=== PATIENT | male | born 1970 | race Caucasian/White ===

== ENCOUNTER 2017-11-18 14:43 | Emergency (ER) | payer MEDICAID, SELFPAY ==
[2017-11-18 14:44] VITALS: BP 192/126; PULSE 89; RESP 14; TEMP 36.4; O2SAT 98; BMI 34.9
--- NOTE | 2017-11-18 15:13 | CT_ITS ---
STUDY: CT ABDOMEN AND PELVIS WITH CONTRAST REASON FOR EXAM: Male, 47 years old. Sudden onset of left lower quadrant pain. RADIATION DOSAGE (If Supplied By Facility): CTDIvol = ( 18.58 ) mGy, DLP = ( 1425.72 ) mGycm TECHNIQUE: Transaxial images were obtained from the dome of the diaphragm to the symphysis pubis without oral contrast. 100mL ml of Isovue 300 contrast was administered. Sagittal and coronal images were reconstructed. Individualized dose optimization techniques were used for this CT. COMPARISON: Comparison is made with prior examination dated September 26, 2016. FINDINGS: The visualized lung bases are unremarkable. The visualized portions of the heart are within normal limits. There is decreased attenuation of the liver consistent with mild steatosis. The gallbladder is contracted. Normal spleen. Normal pancreas. Normal bilateral adrenal glands. Normal right kidney. Mild degree of left hydronephrosis and left hydroureter. There is evidence of a 6.5 mm calculus at left ureterovesical junction. Stable 1.7 cm cyst in the lower pole of the left kidney. There is a small hiatal hernia. Normal small intestine. Normal colon. The appendix is visualized and appears normal. Normal abdominal aorta. Normal inferior vena cava. Normal retroperitoneum. Normal urinary bladder. There is a left-sided inguinal hernia containing adipose tissue. Normal osseous structures. CT/Abdomen/Pelvis W IV Cont ONLY IMPRESSION: 6.5 mm calculus at the left ureter vesicle junction. Fatty infiltration of the liver. Electronically Signed: Geoff Rangel MD at 15:57 EDT Tel [phone], Service support ,
--- NOTE | 2017-11-18 15:18 | ED.DCSUM_ITS ---
- ER Visit Summary Date of Service: 11/18/17 Chief Complaint: Abdominal pain History of Present Illness: The patient is a 47 M past medical history of hypertension for which he states he is not taking his medications. States that this morning around 8 or 9 AM he started having left lower quadrant abdominal pain. Denies any prior history of the same. Denies any trauma. Denies any fever, nausea, vomiting, diarrhea or constipation. Denies any dysuria or hematuria. No history of kidney stones. Denies any prior abdominal surgery. Nothing particularly makes the pain better or worse. He denies any back pain or other symptoms. Physical Examination: Middle-aged male no acute distress. Vital signs are stable blood pressure is elevated at 192/126. HEENT exam unremarkable. Neck nontender lungs clear to auscultation bilaterally. Heart regular rate and rhythm no murmur. Abdomen is soft and only mildly tender in the left lower quadrant. Nondistended. Normal bowel sounds. No pulsatile mass. No hernias or masses. No signs of obstruction. External exam unremarkable. No obvious hernias. He is moving all 4 extremities. He is neurovascularly intact. Neurologically is awake and alert with no focal motor deficits. Test Results: CBC shows a white count of 8. H&H of 15 and 43. Electrolytes unremarkable. Creatinine of 1.1. Gap is 6. Urinalysis is pending. CT of the abdomen and pelvis with IV contrast showed a 6.5 mm stone at the left UVJ. Fatty liver. Reviewed by me and read by the radiologist. Emergency Department Course and Treatment: Patient treated with IV Toradol. Labs and CT being obtained. Repeat exam at 1605 patient is doing well. Pain is well controlled with the IV Toradol. He and I discussed all his test results and is comfortable being discharged to home. Treatment Plan: p.o. [place] and Toradol at home for pain. Flomax to help pass the stone. Return if feeling worse, intractable vomiting or fever. Follow-up with Dr. Gonzalez of urology as needed. Disposition: Discharge Impression: Acute left lower quadrant abdominal pain secondary to 6.5 mm distal left UVJ ureteral stone This note was generated with [employer] software. It may contain incorrect words, spelling, and punctuation that were not noted in review of the chart prior to signing ED Disposition - Plan for ED Patient: Chief Complaint: Abd Pain Referrals: Pérez Montoya MD [Primary Care Provider] -
[2017-11-18 15:20] LABS: Absolute Lymphocyte Count 1.73 X10^3/ul (0.83-4.51); Absolute Neutrophil Count 5.7 X10^3/uL (2.0-7.7); Basophil# 0.04 X10^3/uL; Basophil% 0.5 % (0-1); Eosinophil# 0.18 X10^3/uL; Eosinophils% 2.1 % (0-5); Hematocrit 43.2 % (40-54); Lymphocyte # 1.73 X10^3/ul (4.0); Lymphocyte % 20.6 % (19-41); Mean Corp Hgb Conc 34.7 g/gl (32-36); Mean Corpuscular Hgb 29.5 pg (27.0-32.0); Mean Corpuscular Volume 84.9 fL (80-94); Mean Platelet Vol. 9.5 fl (6.2-12.0); Monocyte# 0.71 X10^3/uL; Monocyte% 8.4 % (0-10); Neutrophil % 67.8 % (47-70); Platelet Count 279 K/mm3 (150-450); RBC Distribution Width CV 12.7 % (11.6-14.6); RBC Distribution Width SD 38.8 fl (35.1-43.9); Red Blood Count 5.09 M/mm3 (4.6-6.2); White Blood Count 8.4 K/mm3 (4.4-11.0)
[2017-11-18 15:22] LABS: POSITIVE COUNT NO; POSITIVE DIFFERENTIAL NO; POSITIVE MORPHOLOGY NO
[2017-11-18 15:28] LABS: Anion Gap 6 (5-15); BUN 24 mg/dL (7-18); BUN/Creat Ratio 20.2 RATIO (10-20); Chloride 108 mmol/L (98-107); Creatinine, Serum 1.19 mg/dL (0.70-1.30); EST Glomerular Filtration Rate 70 mL/min (>60); Est Glom Filt Rate - Afr Amer 84 mL/min (>60); Estimated Creatinine Clearance 86.73 ml/min; Glucose 137 mg/dL (74-106); Potassium 4.1 mmol/L (3.5-5.1); Sodium Level 140 mmol/L (136-145)
[2017-11-18] MEDS: Ketorolac 30 MG/ML Syringe IV (15:28)
[2017-11-18 15:52] LABS: Bacteria 0 SEEN /hpf (None Seen); Mucous, Urine 0 SEEN /hpf (<or=2+); Red Blood Cells-Urine 0 SEEN /hpf (0-5); Squamous Epithelial Cells - UA 0 SEEN /hpf (0-5); White Blood Cells 0 SEEN /hpf (0-5)
--- NOTE | 2017-11-18 16:11 | ED.DEP ---
ED Disposition - Plan for ED Patient: Disposition: Home or Assisted Living Chief Complaint: Abd Pain Instructions: ED Stone Renal W Colic Prescriptions: Hydrocodone/Acetaminophen [[place] 5-325 Tablet] 1 - 2 ea PO 4X/DAY PRN PRN 3 Days #12 tab PRN Reason: Pain Tamsulosin HCl [Flomax] 0.4 mg PO DAILY #3 cap Ketorolac [Toradol] 10 mg PO Q6H #7 tab Referrals: Pérez Montoya MD [Primary Care Provider] - As Needed Henry Gonzalez MD [STAFF PHYSICIAN] - As Needed Additional Instructions: Toradol which is an anti-inflammatory nonnarcotic medication and [place] which is a narcotic pain medication for pain. Plenty of fluids and rest. Strain your urine for the passage of the stone. Return if intractable pain, intractable vomiting or fever.
--- NOTE | 2017-11-18 16:14 | DCINST.ED_ITS ---
ED Disposition - Plan for ED Patient: Disposition: Home or Assisted Living Chief Complaint: Abd Pain Instructions: ED Stone Renal W Colic Prescriptions: Hydrocodone/Acetaminophen [[place] 5-325 Tablet] 1 - 2 ea PO 4X/DAY PRN PRN 3 Days #12 tab PRN Reason: Pain Tamsulosin HCl [Flomax] 0.4 mg PO DAILY #3 cap Ketorolac [Toradol] 10 mg PO Q6H #7 tab Referrals: Pérez Montoya MD [Primary Care Provider] - As Needed Henry Gonzalez MD [STAFF PHYSICIAN] - As Needed Additional Instructions: Toradol which is an anti-inflammatory nonnarcotic medication and [place] which is a narcotic pain medication for pain. Plenty of fluids and rest. Strain your urine for the passage of the stone. Return if intractable pain, intractable vomiting or fever.
[2017-11-18 16:17] VITALS: BP 161/108; PULSE 77; RESP 18; O2SAT 97
[2017-11-18 16:21] LABS: Color, Urine Yellow (Yellow); Glucose, Dipstick Normal (Normal); Ketone-Dipstick Negative (Negative); Leukocyte Esterase-Dipstick Negative /ul (Negative); Nitrite-Dipstick Negative (Negative); Occult Blood-Urine 25 /ul (Negative); Protein-Dipstick 100 mg/dl (Negative); Specific Gravity, Urine 1.015 (1.002-1.030); Urine Bilirubin Dipstick Negative (Negative); Urine Clarity Clear (Clear); Urine Urobilinogen Normal (Normal)
== END 2017-11-18 16:21 | disposition home or self-care (01) ==
PROVIDERS: Emergency Provider Emergency Medicine; Family Provider Family Medicine; PCP Family Medicine
DX: N20.1 Calculus of ureter (principal); R10.32 Left lower quadrant pain; I10 Essential (primary) hypertension; Z79.899 Other long term (current) drug therapy
CPT/HCPCS: 74177; 80048; 81001; 85025; 96374; 99282; Q9967

== ENCOUNTER → 2020-03-22 | Outpatient (CLI) | payer MEDICAID, SELFPAY | END | disposition home or self-care (01) | LOC: MFPLAB 13:39 → LABSPEC 13:41 | PROVIDERS: PCP Family Medicine; Visit Provider Family Medicine | DX: U07.1 COVID-19 (principal); R09.89 Other specified symptoms and signs involving the circulatory and respiratory systems | CPT/HCPCS: 87635; U0003 ==

== ENCOUNTER → 2020-04-27 11:31 | Outpatient (CLI) | payer MEDICAID, SELFPAY ==
[2020-04-27 15:15] LABS: Absolute Lymphocyte Count 1.47 X10^3/uL (0.83-4.51); Absolute Neutrophil Count 8.8 X10^3/uL (2.0-7.7); Basophil# 0.08 X10^3/uL; Basophil% 0.7 % (0-1); Eosinophil# 0.12 X10^3/uL; Eosinophils% 1.1 % (0-5); Hematocrit 41.1 % (40-54); Lymphocyte # 1.47 X10^3/ul (4.0); Lymphocyte % 13.1 % (19-41); Mean Corp Hgb Conc 34.1 g/dL (32-36); Mean Corpuscular Hgb 30.6 pg (27.0-32.0); Mean Corpuscular Volume 89.7 fL (80-94); Mean Platelet Vol. 9.4 fl (6.2-12.0); Monocyte# 0.64 X10^3/uL; Monocyte% 5.7 % (0-10); NRBC Flagged by Analyzer 0 % (0-5); Neutrophil # 8.84 X10^3/uL (2.7-7.7); Neutrophil % 78.7 % (47-70); Platelet Count 292 K/mm3 (150-450); RBC Distribution Width CV 13.2 % (11.6-14.6); RBC Distribution Width SD 41.9 fl (35.1-43.9); Red Blood Count 4.58 M/mm3 (4.6-6.2); White Blood Count 11.2 K/mm3 (4.4-11.0)
[2020-04-27 15:39] LABS: ALB/GLOB Ratio 0.9 RATIO (0.9-2.4); AST(SGOT) 18 U/L (15-37); Alanine Aminotransfer ALT/SGPT 27 U/L (16-61); Albumin, Serum 3.6 g/dL (3.2-5.0); Alkaline Phosphatase 106 U/L (45-117); Anion Gap 7 (5-15); BUN 27 mg/dL (7-18); BUN/Creat Ratio 18.2 RATIO (10-20); Calcium,Total 9.1 mg/dL (8.5-10.1); Chloride 106 mmol/L (98-107); Creatinine, Serum 1.48 mg/dL (0.70-1.30); EST Glomerular Filtration Rate 54 mL/min (>60); Est Glom Filt Rate - Afr Amer 65 mL/min (>60); Globulin 3.9 g/dL (2.2-4.2); Glucose 73 mg/dL (74-106); Potassium 4.2 mmol/L (3.5-5.1); Protein, Total 7.5 g/dL (6.4-8.2); Sodium Level 136 mmol/L (136-145)
== END ==
PROVIDERS: PCP Family Medicine; Referring Provider Family Medicine; Visit Provider Family Medicine
DX: I10 Essential (primary) hypertension (principal)
CPT/HCPCS: 36415; 80053; 85025

== ENCOUNTER → 2020-05-25 08:00 | Outpatient (CLI) | payer MEDICAID, SELFPAY ==
[2020-05-17 07:08] VITALS: BMI 36.3
[2020-05-25 10:43] LABS: Albumin, Serum 3.6 g/dL (3.2-5.0); BUN 23 mg/dL (7-18); BUN/Creat Ratio 16.2 RATIO (10-20); Calcium,Total 9.1 mg/dL (8.5-10.1); Chloride 109 mmol/L (98-107); Creatinine, Serum 1.42 mg/dL (0.70-1.30); EST Glomerular Filtration Rate 56 mL/min (>60); Est Glom Filt Rate - Afr Amer 68 mL/min (>60); Glucose 99 mg/dL (74-106); Phosphorus 2.5 mg/dL (2.5-4.9); Potassium 4.3 mmol/L (3.5-5.1); Sodium Level 138 mmol/L (136-145)
--- NOTE | 2020-05-25 14:36 | PFTCOMP ---
COMPLETE PULMONARY FUNCTION TEST INTERPRETATION Brief HPI: Patient is a 49 year old male, currently under the care of myself, who presents to [facility] for complete pulmonary function tests secondary to diagnosis of chronic cough. Respiratory therapist reports good effort and reproducible results. Interpretation: Forced expiration spirometry shows no large airways obstructive ventilatory defect with an FEV1 of 85% predicted. There is no significant bronchodilator response by strict ATS criteria. Spirograms are of good quality and plateau normally. The respiratory flow volume loop shows a normal pattern. Lung volumes by body plethysmography show a normal total lung capacity at 7.54 L, 100% predicted. All other lung volumes are within normal limits. Diffusion capacity by carbon monoxide is normal at 116% predicted. The airway resistance is normal. No previous pulmonary function tests were available for review. Impression: Normal pulmonary function testing. Could consider a bronchoprovocation study if asthma is suspected.
[2020-06-02 20:45] LABS: Aldosterone, Serum 7.3 ng/dL (0.0-30.0); Renin, Plasma 1.097 ng/mL/hr (0.167-5.380)
== END ==
PROVIDERS: PCP Family Medicine; Referring Provider Internal Medicine Critical Care Medicine; Visit Provider Internal Medicine Critical Care Medicine
DX: R05 Cough (principal); R10.9 Unspecified abdominal pain
CPT/HCPCS: 36415; 80069; 82088; 84244; 94060; 94726; 94729

== ENCOUNTER → 2020-06-07 19:50 | Outpatient (CLI) | payer MEDICAID, SELFPAY ==
[2020-05-17 07:08] VITALS: BMI 36.3
== END ==
PROVIDERS: PCP Family Medicine; Referring Provider Internal Medicine Critical Care Medicine; Visit Provider Internal Medicine Critical Care Medicine
DX: G47.10 Hypersomnia, unspecified (principal)
CPT/HCPCS: 95811

== ENCOUNTER → 2020-06-08 07:39 | Outpatient (CLI) | payer MEDICAID, SELFPAY ==
[2020-05-17 07:08] VITALS: BMI 36.3
--- NOTE | 2020-06-08 07:41 | ECHOCS_ITS ---
Version 3 Reason For Study: PHTN/ HTN Procedure This was a 2D Doppler, Color Flow transthoracic echocardiogram. Contrast injection was performed. The study was technically difficult. Exam performed in department. Left Ventricle Normal LV size. Left ventricular systolic function is normal. The estimated ejection fraction is 65 %. Stage 1 diastolic dysfunction. No regional wall motion abnormalities noted. Right Ventricle Normal RV size. Normal systolic function. Atria Normal left atrium. Normal right atrium. Mitral Valve Normal mitral valve. Tricuspid Valve Normal tricuspid valve. Unable to estimate RV systolic pressure due to inadequate jet, pulmonary artery pressure probably normal. Aortic Valve Normal aortic valve. Pulmonic Valve Normal pulmonic valve. Mild (1+) pulmonic valve insufficiency. Great Vessels Mildly dilated aortic root. The pulmonary artery is normal size. Normal inferior vena cava. Pericardium/Pleural No pericardial effusion. Medication 22 gauge I.V. with prn adaptor inserted into right arm. Diluted definity 3.5ml given slow IV push to enhance endocardial definition. MMode/2D Measurements & Calculations LVIDd: 4.6 cm IVSd: 0.92 cm Ao root diam: 4.0 cm LVIDs: 3.3 cm LVPWd: 0.88 cm FS: 28.6 % LAV(MOD-bp): 49.3 ml LVAd ap4: 29.2 cm2 SV(MOD-sp4): 43.2 ml LAV(MOD-bp) Indexed: 20.0 ml/m2 EDV(MOD-sp4): 78.4 ml LAV(MOD-sp2): 47.9 ml EDV(sp4-el): 85.0 ml LAV(MOD-sp4): 36.8 ml LVAs ap4: 19.7 cm2 ESV(MOD-sp4): 35.2 ml ESV(sp4-el): 37.7 ml EF(MOD-sp4): 55.1 % EF(sp4-el): 55.7 % SV(sp4-el): 47.3 ml LA A4 area: 14.5 cm2 LA dimension(2D): 3.8 cm RA A4 area: 9.8 cm2 Time Measurements MV dec time: 0.29 sec Doppler Measurements & Calculations MV E max harjeet: 54.7 cm/sec Lat Peak E' Harjeet: 7.2 cm/sec Med Peak E' Harjeet: 4.6 cm/sec MV A max harjeet: 77.2 cm/sec E/E' lat: 7.6 E/E' med: 11.9 MV E/A: 0.71 Ao V2 max: 99.7 cm/sec LV V1 max: 90.2 cm/sec PA V2 max: 93.9 cm/sec Ao max P.0 mmHg LV V1 max P.3 mmHg PI end-d harjeet: 85.0 cm/sec Interpretation Summary Normal LV size. Left ventricular systolic function is normal. The estimated ejection fraction is 65 %. Stage 1 diastolic dysfunction. Contrast injection was performed. Ordering Physician: Jhonathan Coats Referring Physician: EMILIE ABRAMS Performed By: Ely Jones, LOREN, RVT
== END ==
PROVIDERS: PCP Family Medicine; Referring Provider Internal Medicine Critical Care Medicine; Visit Provider Internal Medicine Critical Care Medicine
DX: I27.20 Pulmonary hypertension, unspecified (principal)
CPT/HCPCS: 93306; Q9957; A4216; C8929

== ENCOUNTER 2020-06-13 09:28 | Emergency (ER) | payer MEDICAID, SELFPAY ==
[2020-05-17 07:08] VITALS: BMI 36.3
[2020-06-13 09:30] VITALS: BP 141/86; PULSE 101; RESP 16; TEMP 35.8; O2SAT 98; BMI 36.5
--- NOTE | 2020-06-13 09:50 | ED.VIS.GEN ---
History of Present Illness Chief Complaint: Lower Extremity Injury Informant: Patient Narrative: 49-year-old male presenting with left knee pain. He states he fell yesterday while working. Patient has no abrasions. Patient states he is ambulatory with antalgic gait. Patient relates history of septic knee distantly and does not note that there is erythema, warmth, cellulitic change on his knee. Patient states he does not want to file Workmen's Comp. Patient states his only medical problem is hypertension. - Past Medical History (1) HTN (hypertension) Status: Acute Past Medical History - Allergies and Home Meds Allergies/Adverse Reactions: Allergies No Known Allergies Allergy (Verified 06/13/20 09:30) Primary Care Physician: Pérez Montoya MD [Primary Care Provider] - Prior records reviewed: Yes Past Medical History: - - Reviewed in problem list Surgical History: tonsillectomy Lives: Spouse/ Significant Other Smoking Status: Never smoker Alcohol: None Drugs: None Review of Systems General: Denies: Chills, Fever, Sweats Eyes: Denies: Visual changes - bilaterally, Diplopia ENT: Denies: Rhinorrhea, Sore throat Cardiovascular: Reports: Chest pain Respiratory: Denies: Dyspnea, Cough, Dyspnea on exertion Gastrointestinal: Denies: Abdominal pain, Nausea, Vomiting, Diarrhea, Melena, Hematochezia Genitourinary: Denies: Dysuria, Hematuria, Frequency Musculoskeletal: Reports: Extremity Pain - Left knee pain Skin: Denies: Rash, Wounds Neurological: Denies: Headache, Weakness, Numbness Psych: Denies: Depression, Anxiety Endocrine: Denies: Polyuria, Polydipsia Physical Exam Vital Signs/Narrative: Vital Signs Temp Pulse Resp BP Pulse Ox 06/13/20 09:30 96.5 F L 101 H 16 141/86 H 98 Inital Vital Signs reviewed: Yes General: Well nourished, No Acute Distress Head: Normocephalic, Atraumatic Eyes: Perrl, EOMI ENT: Moist mucous membranes, No rhinorrhea Cardiovascular: Regular rate, Regular rhythm Respiratory: No distress, CTA bilaterally Extremities: - - Tenderness to palpation over the left knee. No ligament laxity. No erythema, warmth. No pain with short arc range of motion. Patient able to flex and extend the knee actively. Extension mechanism is intact. Negative for: Edema Skin: Normal color, No rash Neurological: Alert, Oriented x3 Psychological: Normal affect, Normal Mood Diagnostic/Tx/Re-eval Clinical Impression(s) from Imaging Studies Knee X-Ray 06/13/20 10:05 IMPRESSION: Arthrosis of the medial femorotibial compartment. Electronically Signed: Juan F Raman MD at 11:10 EST Tel , Service support , - Medical Decision Making 49-year-old male presenting with left knee pain after mechanical fall. On physical exam there is no ligament laxity or deformity. There is no abrasions. Patient has full range of motion actively and passively and I do not suspect septic knee joint. Patient had shot of Toradol 15 mg IM and had x-ray of the left knee 4 views as interpreted by myself to show degenerative changes without acute fracture or subluxation. Radiology does agree. Patient counseled to use ice, elevation, Naprosyn at home. He was given a prescription for Naprosyn. He is to follow-up with his regular doctor to ensure resolution. Impression: 1. Left knee contusion 2. Mechanical fall ED Disposition - Plan for ED Patient: Disposition: Home or Assisted Living Instructions: ED Contusion, Lower Extremity Prescriptions: Naproxen [Naprosyn] 500 mg PO BID #14 tab Prescription Printed Referrals: Pérez Montoya MD [Primary Care Provider] -
[2020-06-13] MEDS: Ketorolac 15 MG/ML Vial IM (10:05)
--- NOTE | 2020-06-13 10:05 | RAD_ITS ---
STUDY: X-RAY - LEFT KNEE REASON FOR EXAM: Left knee pain. TECHNIQUE: 4 view(s) of the knee. COMPARISON: MRI images 07/10/2013. FINDINGS: Normal visualized distal femur. Normal visualized proximal tibia and fibula. Normal proximal tibiofibular articulation. There is moderate to severe joint space narrowing of the medial femorotibial compartment. Normal lateral femorotibial compartment. There are marginal osteophytes without joint space narrowing of the patellofemoral articulation. There is a small enthesophyte at the superior pole of the patella. RAD/Knee 4 or More Views IMPRESSION: Arthrosis of the medial femorotibial compartment. Electronically Signed: Juan F Raman MD at 11:10 EST Tel , Service support ,
[2020-06-13 11:36] VITALS: BP 108/74; PULSE 68; RESP 15; O2SAT 98
== END 2020-06-13 11:47 | disposition home or self-care (01) ==
PROVIDERS: Emergency Provider Student in an Organized Health Care Education/Training Program; PCP Family Medicine
DX: S80.02XA Contusion of left knee, initial encounter (principal); R26.9 Unspecified abnormalities of gait and mobility; W19.XXXA Unspecified fall, initial encounter; Y93.9 Activity, unspecified; Y92.9 Unspecified place or not applicable; Y99.9 Unspecified external cause status; I10 Essential (primary) hypertension; Z79.899 Other long term (current) drug therapy
CPT/HCPCS: 73564; 96372; 99283

== ENCOUNTER → 2020-06-22 10:00 | Outpatient (CLI) | payer MEDICAID, SELFPAY ==
[2020-06-13 09:30] VITALS: BMI 36.5
== END ==
PROVIDERS: PCP Family Medicine; Visit Provider Nurse Practitioner Acute Care
DX: Z46.89 Encounter for fitting and adjustment of other specified devices (principal)

== ENCOUNTER → 2021-04-19 | Outpatient (CLI) | payer MEDICAID, SELFPAY | END | disposition home or self-care (01) | LOC: LABSPEC 16:35 | PROVIDERS: PCP Family Medicine | DX: Z00.00 Encounter for general adult medical examination without abnormal findings (principal) ==

== ENCOUNTER → 2022-04-09 | Outpatient (CLI) | payer MEDICAID, SELFPAY ==
[2022-04-09 10:13] LABS: Absolute Lymphocyte Count 1.69 X10^3/uL (0.83-4.51); Absolute Neutrophil Count 6.1 X10^3/uL (2.0-7.7); Basophil# 0.04 X10^3/uL; Basophil% 0.5 % (0-1); Eosinophil# 0.13 X10^3/uL; Eosinophils% 1.5 % (0-5); Hematocrit 44.3 % (40-54); Hemoglobin 14.4 g/dL (13.0-16.5); Lymphocyte # 1.69 X10^3/ul (0.83-4.51); Lymphocyte % 19.7 % (19-41); Mean Corp Hgb Conc 32.5 g/dL (32-36); Mean Corpuscular Hgb 28.6 pg (27.0-32.0); Mean Corpuscular Volume 88.1 fL (80-94); Mean Platelet Vol. 9.9 fl (6.2-12.0); Monocyte# 0.57 X10^3/uL; Monocyte% 6.6 % (0-10); NRBC Flagged by Analyzer 0 % (0-5); Neutrophil # 6.11 X10^3/uL (2.7-7.7); Platelet Count 323 K/mm3 (150-450); RBC Distribution Width CV 12.2 % (11.6-14.6); RBC Distribution Width SD 39.3 fl (35.1-43.9); Red Blood Count 5.03 M/mm3 (4.6-6.2); White Blood Count 8.6 K/mm3 (4.4-11.0)
[2022-04-09 11:22] LABS: ALB/GLOB Ratio 0.9 RATIO (0.9-2.4); AST(SGOT) 13 U/L (15-37); Alanine Aminotransfer ALT/SGPT 29 U/L (16-61); Albumin, Serum 3.4 g/dL (3.2-5.0); Alkaline Phosphatase 106 U/L (45-117); Anion Gap 9 (5-15); BUN 32 mg/dL (7-18); BUN/Creat Ratio 13.9 RATIO (10-20); CRP 5.25 mg/L (0.0-3.0); Calcium,Total 8.9 mg/dL (8.5-10.1); Chloride 107 mmol/L (98-107); Cholesterol 220 mg/dL (200); EST Glomerular Filtration Rate 32 mL/min (>60); Est Glom Filt Rate - Afr Amer 39 mL/min (>60); Globulin 3.7 g/dL (2.2-4.2); Glucose 99 mg/dL (74-106); High Density Lipoprotein 43 mg/dL; Lipase 144 U/L (73-393); PSA,Total - Annual Screen 4.89 ng/mL (0.00-4.00); Potassium 4.3 mmol/L (3.5-5.1); Protein, Total 7.1 g/dL (6.4-8.2); Sodium Level 139 mmol/L (136-145); Triglycerides 131 mg/dL; Very Low Density Lipoprotein 26 mg/dL (5-40)
[2022-04-10 13:35] LABS: ANTINUCLEAR ANTIBODIES DIRECT Negative (Negative)
== END | disposition home or self-care (01) ==
LOC: MFPLAB 09:02
PROVIDERS: PCP Family Medicine; Referring Provider Family Medicine; Visit Provider Family Medicine
DX: Z00.00 Encounter for general adult medical examination without abnormal findings (principal); R10.13 Epigastric pain
CPT/HCPCS: 86235 ×3; 84153; 86225; 36415; 80053; 80061; 83690; 85025; 86038; 86140; G0103

== ENCOUNTER → 2022-04-24 | Outpatient (CLI) | payer MEDICAID, SELFPAY ==
[2022-04-24 18:55] LABS: AST(SGOT) 17 U/L (15-37); Alanine Aminotransfer ALT/SGPT 28 U/L (16-61); Albumin, Serum 3.5 g/dL (3.2-5.0); Alkaline Phosphatase 104 U/L (45-117); Anion Gap 8 (5-15); BUN 35 mg/dL (7-18); BUN/Creat Ratio 13.5 RATIO (10-20); CRP 6.51 mg/L (0.0-3.0); Calcium,Total 9.1 mg/dL (8.5-10.1); Chloride 111 mmol/L (98-107); EST Glomerular Filtration Rate 28 mL/min (>60); Est Glom Filt Rate - Afr Amer 34 mL/min (>60); Globulin 3.6 g/dL (2.2-4.2); Glucose 85 mg/dL (74-106); Potassium 4.7 mmol/L (3.5-5.1); Protein, Total 7.1 g/dL (6.4-8.2); Sodium Level 141 mmol/L (136-145)
== END | disposition home or self-care (01) ==
LOC: MFPLAB 14:48
PROVIDERS: PCP Family Medicine; Visit Provider Family Medicine
DX: N28.9 Disorder of kidney and ureter, unspecified (principal)
CPT/HCPCS: 36415; 80053; 86140

== ENCOUNTER → 2022-05-16 | Outpatient (CLI) | payer MEDICAID, SELFPAY ==
[2022-05-16 17:46] LABS: Absolute Lymphocyte Count 1.68 X10^3/uL (0.83-4.51); Absolute Neutrophil Count 5.3 X10^3/uL (2.0-7.7); Basophil# 0.07 X10^3/uL; Basophil% 0.9 % (0-1); Eosinophils% 1.3 % (0-5); Hematocrit 42.1 % (40-54); Hemoglobin 13.5 g/dL (13.0-16.5); Lymphocyte # 1.68 X10^3/ul (0.83-4.51); Mean Corp Hgb Conc 32.1 g/dL (32-36); Mean Corpuscular Hgb 28.4 pg (27.0-32.0); Mean Corpuscular Volume 88.4 fL (80-94); Monocyte# 0.48 X10^3/uL; Monocyte% 6.3 % (0-10); NRBC Flagged by Analyzer 0 % (0-5); Neutrophil # 5.27 X10^3/uL (2.7-7.7); Neutrophil % 69.1 % (47-70); Platelet Count 294 K/mm3 (150-450); RBC Distribution Width CV 12.2 % (11.6-14.6); RBC Distribution Width SD 39.6 fl (35.1-43.9); Red Blood Count 4.76 M/mm3 (4.6-6.2); White Blood Count 7.6 K/mm3 (4.4-11.0)
[2022-05-16 18:02] LABS: AST(SGOT) 15 U/L (15-37); Alanine Aminotransfer ALT/SGPT 27 U/L (16-61); Albumin, Serum 3.4 g/dL (3.2-5.0); Alkaline Phosphatase 100 U/L (45-117); Anion Gap 12 (5-15); BUN 32 mg/dL (7-18); BUN/Creat Ratio 12.5 RATIO (10-20); Chloride 109 mmol/L (98-107); Creatinine, Serum 2.57 mg/dL (0.70-1.30); EST Glomerular Filtration Rate 28 mL/min (>60); Est Glom Filt Rate - Afr Amer 34 mL/min (>60); Globulin 3.5 g/dL (2.2-4.2); Glucose 92 mg/dL (74-106); Potassium 4.1 mmol/L (3.5-5.1); Protein, Total 6.9 g/dL (6.4-8.2); Sodium Level 142 mmol/L (136-145)
== END | disposition home or self-care (01) ==
PROVIDERS: PCP Family Medicine; Referring Provider Family Medicine; Visit Provider Family Medicine
DX: N18.32 Chronic kidney disease, stage 3b (principal)
CPT/HCPCS: 36415; 80053; 85025

== ENCOUNTER 2022-05-21 06:51 | Day surgery (SDC) | payer MEDICAID, SELFPAY ==
[2022-05-21] MEDS: Lactated Ringers 1,000 ML 15 ML IV (07:00)
[2022-05-21 07:15] VITALS: BP 170/126; PULSE 74; RESP 18; TEMP 23.3; O2SAT 98; BMI 35.5
--- NOTE | 2022-05-21 07:16 | PCM.HP.BLA ---
History and Physical Date of Admission: 05/21/22 Intake Vital Signs ? 09/28/2106:58 04/24/2312:53 Height 6 ft 1 in 6 ft 1 in Weight: ? 272 lb 2 oz BMI ? 35.9 BP ? 173/109 H Blood Pressure Location ? Rt brachial Position ? Sitting Respiration ? 18 Pulse ? 92 Pulse Source ? NIBP Temp ? 98.2 F Temp Source ? Temporal Pulse Oximetry (%) ? 97 Oxygen Delivery Method ? room air Intake Visit Reasons:?UPPER/LOWER SCOPE DUE 3YR Chief Complaint: egd/c-scope Windows [employer] Doors Installer Required: No Is patient in pain?: No Allergies No Known Allergies Allergy (Verified 04/24/22 13:55) Medications amlodipine 5 mg tablet 5 mg PO DAILY 05/16/20 [History Confirmed 04/24/22] ascorbic acid (vitamin C) 500 mg tablet 500 mg PO BID 05/16/20 [History Confirmed 04/24/22] chlorthalidone 25 mg tablet 25 mg PO DAILY 05/16/20 [History Confirmed 04/24/22] losartan 100 mg tablet 100 mg PO DAILY 05/16/20 [History Confirmed 04/24/22] multivitamin,[id number] (Complete Multivitamin tablet) 1 tab PO DAILY 05/16/20 [History Confirmed 04/24/22] spironolactone 25 mg tablet 25 mg PO DAILY 05/16/20 [History Confirmed 04/24/22] naproxen 500 mg tablet 500 mg PO BID #14 tabs 06/13/20 [Rx Confirmed 04/24/22] ipratropium bromide 21 mcg (0.03 %) nasal spray 2 spray intranasal .every 6 hours PRN Sob &/Or Wheezing #30 mL 09/28/20 [Rx Confirmed 04/24/22] PFSH Medical History?(Updated 04/24/22 @ 15:[address] Selvin Ji MD) Anemia Blind, unilateral Dyspepsia Hiatal hernia HTN (hypertension) Left lower quadrant pain Obesity Post-nasal drip Sleep apnea Tubulovillous adenoma Unspecified dislocation of unspecified acromioclavicular joint, initial encounter Surgical History?(Updated 04/24/22 @ 13:52 by Miracle Moya) Cellulitis and abscess of leg History of colonoscopy (~2016) History of esophagogastroduodenoscopy (EGD) (~2014) Hx of local excision of skin lesion Family History? Mother Hypertension CAD (coronary artery disease) Diabetes ?? ? Type 2Father Diabetes Heart disease CancerBrother HypertensionSister CVA (cerebral vascular accident) Hypertension Social History? Smoking Status:? Former smoker alcohol intake:? never HPI HPI HPI: Patient is a 51-year-old male here for colonoscopy and EGD.? The patient says that for the last week or so he has been having black and tarry stools.? He denies any abdominal pain.? He also had a colonoscopy in 2017 with a tubovillous adenoma and was recommended to repeat in 3 years but never followed up afterwards.? Patient denies any gross blood in the stool or nausea or vomiting.? Patient is not on any blood thinners. ROS General General: Yes fatigue; No weight change, appetite, colon cancer, breast cancer or weakness HEENT HEENT: No difficulty swallowing, eye injury, eye surgery, swollen glands or hoarseness Endo Endocrine: No thyroid disease, diabetes mellitus, thyroid cancer, Hair loss, heat intolerance or cold intolerance Musc Musculoskeletal: No back problems, arthritis, rheumatoid arthritis, gout or joint pain Cardio Cardiovascular: Yes high blood pressure; No murmur, pacemaker, heart disease, atrial fibrillation, heart attack, heart stent, palpitations, shortness of breat with exertion or chest pain Psych Psychiatric: No depression, anxiety or hearing voices Resp Respiratory: Yes shortness of breath, Yes sleep apnea, Yes cough, No COPD, No asthma, No emphysema and No wheezing Gastro Gastrointestinal: Yes abdominal pain, Yes nausea or vomiting, No diarrhea, No constipation, No blood in stool, No acid reflux, No hemorrhoids, No ulcers, No gallbladder problem and Yes black,tarry stools Murali Hematologic: No blood thinners, No blood disorders, No bleeding, No anemia and No blood clots Neuro Neurologic: No weakness Exam Const General: cooperative Orientation: alert and oriented x3 HENMT Head: normal to inspection Neck Neck: normal visual inspection and full ROM Chest Chest palpation & inspection: normal inspection of the chest Resp Effort & Inspection: normal respiratory effort Auscultation: clear to auscultation bilaterally Cardio Rate: regular rate Rhythm: regular rhythm GI Inspection: non-distended Palpation: soft and nontender Skin General: no rashes or lesions noted Neuro General: patient alert and patient oriented x3 Extrem General: full ROM Psych Appearance: grossly normal Mental Status: mental status grossly normal Assessment and Plan Assessment and Plan (1) History of colon polyps: ?Status:?Acute (2) Black tarry stools: ?Status:?Acute ? ? ? Orders: Orders Colonoscopy Today ? ? EGD Today ? ? Plan Patient had a history of tubovillous adenoma 5 years ago and was supposed to have follow-up colonoscopy after 3 years.? Patient is also having black tarry stools.? I will perform an EGD and colonoscopy to evaluate for both. I explained endoscopy in detail to the patient.? I explained the risks including but not limited to stroke or heart attack with anesthesia, perforation of the GI tract, bleeding, infection.? I explained that any of these could necessitate further emergency surgery.? The patient understands and all questions were answered sufficiently.? The patient wishes to proceed with procedure. Selvin Ji MD Pager: [facility] [address] [place] [address], [address] [place] [address] Office: I have examined the patient and the H&P has been reviewed. There are no clinical changes since date of exam.
[2022-05-21 09:30] VITALS: BP 156/102; BP 170/126; PULSE 71; RESP 16; TEMP 36.2; O2SAT 91
--- NOTE | 2022-05-21 09:31 | OP.EGD_ITS ---
Patient Name: Donte Dumont Procedure Date: 05/21/2022 9:09 AM Date of : 1970 Age: 51 Procedure: Upper GI endoscopy Indications: Melena Providers: Selvin Ji MD Referring MD: Selvin Ji MD Medicines: Monitored Anesthesia Care Patient Profile: This is a 51 year old male. Refer to note in patient chart for documentation of history and physical. Complications: No immediate complications. Procedure: Pre-Anesthesia Assessment: - Prior to the procedure, a History and Physical was performed, and patient medications and allergies were reviewed. The patient's tolerance of previous anesthesia was also reviewed. The risks and benefits of the procedure and the sedation options and risks were discussed with the patient. All questions were answered, and informed consent was obtained. Prior Anticoagulants: The patient has taken no previous anticoagulant or antiplatelet agents. After reviewing the risks and benefits, the patient was deemed in satisfactory condition to undergo the procedure. After obtaining informed consent, the endoscope was passed under direct vision. Throughout the procedure, the patient's blood pressure, pulse, and oxygen saturations were monitored continuously. The Endoscope was introduced through the mouth, and advanced to the fourth part of duodenum. The upper GI endoscopy was accomplished without difficulty. The patient tolerated the procedure well. Scope In: 9:14:36 AM Scope Out: 9:16:09 AM Total Procedure Duration Time 0 hours 1 minute 33 seconds Findings: The esophagus was normal. The stomach was normal. The examined duodenum was normal. Impression: - Normal esophagus. - Normal stomach. - Normal examined duodenum. - No specimens collected. Recommendation: - Discharge patient to home. - Resume previous diet. - Continue present medications. Procedure Code(s): --- Professional --- 94557, Esophagogastroduodenoscopy, flexible, transoral; diagnostic, including collection of specimen(s) by brushing or washing, when performed (separate procedure) Diagnosis Code(s): --- Professional --- K92.1, Melena (includes Hematochezia) CPT copyright 2017 [employer]. All rights reserved. The codes documented in this report are preliminary and upon supreme court judge review may be revised to meet current compliance requirements. Selvin Ji MD 05/21/2022 9:30:41 AM This report has been signed electronically. Number of Addenda: 0 Note Initiated On: 05/21/2022 9:09 AM
--- NOTE | 2022-05-21 09:31 | OP.CCLET_ITS ---
05/21/2022 Pérez Montoya [address] [place] [address] Re : Upper GI endoscopy procedure for Donte Dumont Dear Dr. Montoya This procedure was performed on Saturday, May 21, 2022. My impressions and recommendations are as follows: Impressions : - Normal esophagus. - Normal stomach. - Normal examined duodenum. - No specimens collected. Recommendations : - Discharge patient to home. - Resume previous diet. - Continue present medications. My findings are described in the full procedure note, which is enclosed. If I can be of further assistance, please feel free to contact me at Doctor phone number(s): , Work: . Sincerely, Selvin Ji MD 05/21/2022 9:30:41 AM This report has been signed electronically.
[2022-05-21 09:35] VITALS: BP 142/99; BP 170/126; PULSE 67; RESP 16; O2SAT 91
--- NOTE | 2022-05-21 09:35 | OP.COLON_ITS ---
Patient Name: oDnte Dumont Procedure Date: 05/21/2022 9:18 AM Date of : 1970 Age: 51 Procedure: Colonoscopy Indications: Melena Providers: Selvin Ji MD Referring MD: Selvin Ji MD Medicines: Monitored Anesthesia Care Patient Profile: This is a 51 year old male. Refer to note in patient chart for documentation of history and physical. Last Colonoscopy: more than 3 years ago. Complications: No immediate complications. Procedure: Pre-Anesthesia Assessment: - Prior to the procedure, a History and Physical was performed, and patient medications and allergies were reviewed. The patient's tolerance of previous anesthesia was also reviewed. The risks and benefits of the procedure and the sedation options and risks were discussed with the patient. All questions were answered, and informed consent was obtained. Prior Anticoagulants: The patient has taken no previous anticoagulant or antiplatelet agents. After reviewing the risks and benefits, the patient was deemed in satisfactory condition to undergo the procedure. - Prior to the procedure, a History and Physical was performed, and patient medications and allergies were reviewed. The patient's tolerance of previous anesthesia was also reviewed. The risks and benefits of the procedure and the sedation options and risks were discussed with the patient. All questions were answered, and informed consent was obtained. Prior Anticoagulants: The patient has taken no previous anticoagulant or antiplatelet agents. After reviewing the risks and benefits, the patient was deemed in satisfactory condition to undergo the procedure. After I obtained informed consent, the scope was passed under direct vision. Throughout the procedure, the patient's blood pressure, pulse, and oxygen saturations were monitored continuously. The colonoscope was introduced through the anus and advanced to the cecum, identified by appendiceal orifice and ileocecal valve. The colonoscopy was performed without difficulty. The patient tolerated the procedure well. The quality of the bowel preparation was adequate. Scope In: 9:19:16 AM Scope Withdrawal Time 0 hours 6 minutes 5 seconds Scope Out: 9:26:46 AM Total Procedure Duration Time 0 hours 7 minutes 30 seconds Findings: The entire examined colon appeared normal on direct and retroflexion views. Impression: - The entire examined colon is normal on direct and retroflexion views. - No specimens collected. Recommendation: - Discharge patient to home. - Resume previous diet. - Continue present medications. - Repeat colonoscopy in 5 years for screening purposes. Procedure Code(s): --- Professional --- 42943, Colonoscopy, flexible; diagnostic, including collection of specimen(s) by brushing or washing, when performed (separate procedure) Diagnosis Code(s): --- Professional --- K92.1, Melena (includes Hematochezia) CPT copyright 2017 [employer]. All rights reserved. The codes documented in this report are preliminary and upon maintenance instructor review may be revised to meet current compliance requirements. Selvin Ji MD 05/21/2022 9:35:26 AM This report has been signed electronically. Number of Addenda: 0 Note Initiated On: 05/21/2022 9:18 AM
--- NOTE | 2022-05-21 09:36 | OP.CCLET_ITS ---
05/21/2022 Pérez Montoya [address] [place] [address] Re : Colonoscopy procedure for Donte Dumont Dear Dr. Montoya This procedure was performed on Saturday, May 21, 2022. My impressions and recommendations are as follows: Impressions : - The entire examined colon is normal on direct and retroflexion views. - No specimens collected. Recommendations : - Discharge patient to home. - Resume previous diet. - Continue present medications. - Repeat colonoscopy in 5 years for screening purposes. My findings are described in the full procedure note, which is enclosed. If I can be of further assistance, please feel free to contact me at Doctor phone number(s): , Work: . Sincerely, Selvin Ji MD 05/21/2022 9:35:26 AM This report has been signed electronically.
[2022-05-21 09:40] VITALS: BP 138/111; BP 170/126; PULSE 70; RESP 16; O2SAT 95
[2022-05-21 09:45] VITALS: BP 141/122; BP 170/126; PULSE 69; RESP 16; TEMP 36.1; O2SAT 96
[2022-05-21 10:00] VITALS: BP 170/126
== END 2022-05-21 10:07 | disposition home or self-care (01) ==
LOC: EN 06:52 → AC 06:54
PROVIDERS: PCP Family Medicine; Referring Provider Surgery; Visit Provider Surgery
PROC: 0DJD8ZZ Inspection of Lower Intestinal Tract, Via Natural or Artificial Opening Endoscopic (ICD-10-PCS; CPT 45378; principal; 2022-05-21 07:55)
DX: K92.1 Melena (principal); Z87.891 Personal history of nicotine dependence; I10 Essential (primary) hypertension; Z86.010 Personal history of colon polyps; Z79.899 Other long term (current) drug therapy
CPT/HCPCS: 45378; 43235; J7120; J2405

== ENCOUNTER → 2022-05-22 | Outpatient (CLI) | payer MEDICAID, SELFPAY ==
--- NOTE | 2022-05-22 10:55 | ART_ITS ---
Reason For Study: Claudication Procedure A bilateral lower extremity continuous wave Doppler with analog waveform analysis,segmental pressures,and ankle brachial indexes with exercise. Left Segmental Pressures Left brachial= 160mmHg. Left posterior tibial artery = 239mmHg. Left dorsalis pedis artery = 222mmHg. Left digit = 228 mmHg. The left dorsalis pedis waveforms are triphasic. The left posterior tibial artery waveforms are triphasic. Right Segmental Pressures Right brachial= 159mmHg. Right posterior tibial artery = 220mmHg. Right dorsalis pedis artery = 226mmHg. Right digit = 205 mmHg. The right dorsalis pedis waveforms are triphasic. The right posterior tibial artery waveforms are triphasic. Indices The right ankle brachial index by the dorsalis pedis is 1.41. The right ankle brachial index by the posterior tibial artery is 1.38. The right digital-brachial index is 1.28. The right post exercise ankle brachial index is 1.44. The left ankle brachial index by the dorsalis pedis is 1.39. The left ankle brachial index by the posterior tibial artery is 1.49. The left digital-brachial index is 1.43. The left post exercise ankle brachial index is 1.47. VL/Lower Ext Art Exam w/ Exercise Interpretation Summary Right JOYCE 1.41, normal. Doppler/PVR waveforms of the right leg normal at rest. Right lower extremity exhibits normal response to exercise. Left JOYCE 1.49, normal. Doppler/PVR waveforms of the left leg normal at rest. Left lower extremity exhibits normal response to exercise. Ordering Physician: Pérez Montoya Referring Physician: PÉREZ MONTOYA MD Performed By: Lilly Saba RVT
== END | disposition home or self-care (01) ==
PROVIDERS: PCP Family Medicine; Visit Provider Family Medicine
DX: I73.9 Peripheral vascular disease, unspecified (principal)
CPT/HCPCS: 93924

== ENCOUNTER → 2022-06-15 | Outpatient (CLI) | payer MEDICAID, SELFPAY ==
--- NOTE | 2022-06-15 09:50 | US_ITS ---
INDICATION: CKD 4 EXAMINATION: Ultrasound US Kidney(s) complete (eg, kidneys and bladder) TECHNIQUE: Ribeiro scale and color doppler images were obtained of the kidneys. COMPARISON: Abdominal ultrasound 08/19/2016 FINDINGS: RIGHT KIDNEY: 10.8 x 5.2 x 4.5 cm cortical thickness 1.5 cm.. There is diffuse hyperechogenicity of the cortex. There is no hydronephrosis. No shadowing calculus, focal lesion or perinephric collection is demonstrated. LEFT KIDNEY: 10.7 x 4.5 x 5.8 cm cortical thickness 2.0 cm.. Diffuse hyperechogenicity of the cortex. There is no hydronephrosis. No shadowing calculus or perinephric collection. There is a 2.3 x 2.5 x 2.4 cm cyst within the lower pole of the left kidney. URINARY BLADDER: No acute abnormality. Bladder volume 117 cc. On post void imaging there is no significant bladder emptying with postvoid volume 105 cc. Bladder wall thickness 3 mm. US/Kidney and Bladder IMPRESSION: Interval development of hyperechoic cortex of both the right and left kidneys consistent with medical renal disease. New since prior study. This measures 2.3 x 2.5 x 2.4 cm. Previously visualized calculus within the left kidney not seen on current study. Bladder volume 117 cc without evidence of appreciable bladder emptying on postvoid imaging. Electronically Signed: Zeus Perez MD, PAULO at 10:35 EST ,
== END | disposition home or self-care (01) ==
PROVIDERS: PCP Family Medicine; Referring Provider Internal Medicine Nephrology; Visit Provider Internal Medicine Nephrology
DX: N18.4 Chronic kidney disease, stage 4 (severe) (principal)
CPT/HCPCS: 76770

== ENCOUNTER → 2022-07-01 | Outpatient (CLI) | payer MEDICAID, SELFPAY ==
[2022-07-01 13:23] LABS: Hematocrit 42.6 % (40-54); Hemoglobin 13.6 g/dL (13.0-16.5); Mean Corp Hgb Conc 31.9 g/dL (32-36); Mean Corpuscular Hgb 28.3 pg (27.0-32.0); Mean Corpuscular Volume 88.8 fL (80-94); Mean Platelet Vol. 10.3 fl (6.2-12.0); Platelet Count 318 K/mm3 (150-450); RBC Distribution Width CV 12.8 % (11.6-14.6); RBC Distribution Width SD 41.9 fl (35.1-43.9); White Blood Count 7.5 K/mm3 (4.4-11.0)
[2022-07-01 13:36] LABS: Albumin, Serum 3.4 g/dL (3.2-5.0); BUN 26 mg/dL (7-18); BUN/Creat Ratio 9.9 RATIO (10-20); Calcium,Total 9.1 mg/dL (8.5-10.1); Chloride 111 mmol/L (98-107); Creatinine, Serum 2.63 mg/dL (0.70-1.30); EST Glomerular Filtration Rate 27 mL/min (>60); Est Glom Filt Rate - Afr Amer 33 mL/min (>60); Glucose 178 mg/dL (74-106); Phosphorus 2.6 mg/dL (2.5-4.9); Potassium 3.9 mmol/L (3.5-5.1); Sodium Level 141 mmol/L (136-145)
[2022-07-01 13:53] LABS: PTHIN 219.9 pg/mL (18.4-80.1)
[2022-07-01 18:10] LABS: Protein, Urine (Random) 524.1 mg/dL (<11.9); Protein:Creat Ratio 2647 mg/g CRE (0-200)
== END | disposition home or self-care (01) ==
LOC: POLAB3 09:32
PROVIDERS: PCP Family Medicine; Visit Provider Internal Medicine Nephrology
DX: N18.4 Chronic kidney disease, stage 4 (severe) (principal)
CPT/HCPCS: 36415; 80069; 82570; 83970; 84156; 85027

== ENCOUNTER → 2022-07-15 | Outpatient (CLI) | payer MEDICAID, SELFPAY ==
[2022-07-15 12:03] LABS: Prothrombin Time (Protime)PT. 13.3 SECONDS (11.7-14.9)
[2022-07-15 12:04] LABS: Partial Thromboplast Time 28.2 Seconds (24.1-36.2)
== END | disposition home or self-care (01) ==
LOC: LAB 11:14
PROVIDERS: PCP Family Medicine; Referring Provider Internal Medicine Nephrology; Visit Provider Internal Medicine Nephrology
DX: N18.4 Chronic kidney disease, stage 4 (severe) (principal)
CPT/HCPCS: 36415; 85610; 85730

== ENCOUNTER 2022-07-16 06:31 | Outpatient (CLI) | payer MEDICAID, SELFPAY ==
[2022-07-16] VITALS (7 sets, daily range): BP systolic 158–176; BP diastolic 106–117; PULSE 69–80; RESP 13–18; TEMP 36.4–36.7; O2SAT 95–98; BMI 36.3
--- NOTE | 2022-07-16 06:35 | CT_ITS ---
PROCEDURE: CT GUIDED PERCUTANEOUS KIDNEY BIOPSY. DATE: July 16, 2022. INDICATION: Male, 51 years old. Chronic renal disease. PHYSICIAN: Geoff Rangel M.D. MEDICATIONS: 3 mg of Versed and 50 mcg of fentanyl intravenously. Conscious sedation was performed. Conscious sedation was started at 8:34 AM and terminated at 8:50 AM. The patient was independently monitored by the department nurse. ACCESS SITE: Lower pole of the right kidney. NEEDLE: 18-gauge core biopsy needle system SPECIMEN: 4 18-gauge cores EBL: None. COMPLICATIONS: None immediate. RADIATION DOSAGE (If Supplied By Facility): CTDIvol = ( 16 ) mGy, DLP = ( 524.35 ) mGycm. Individualized dose optimization techniques were utilized. The risks, benefits, and alternatives to the procedure and sedation were explained to the patient. The specific risk of hemorrhage requiring further treatment or intervention was detailed and accepted. Written informed consent was obtained. The patient was placed on the CT table in the prone position. Multiple axial images were obtained from the lung base through the caudal extent of the kidneys. An appropriate entry site was identified and a carmen made on the skin. The skin overlying the [right ] posterior flank was prepped and draped in sterile fashion. 1% lidocaine was administered subcutaneously for local anesthesia. Initially, a 22 gauge needle was advanced and CT images confirmed good needle position. The 22 gauge needle was then exchanged for an 17 gauge introducer needle which was advanced. Repeat CT images confirmed good needle trajectory and tip position. The introducer needle was then advanced into the periphery of the inferior renal pole, and CT images were again obtained to confirm exact tip location. The inner stylet of the introducer needle was then removed and an 18 gauge coaxial needle was advanced thru the introducer needle and biopsy performed. A total of [4 ] passes were performed and the specimen collected was sent to Pathology for further evaluation. The needle was withdrawn. Hemostasis was achieved with manual compression and a sterile dressing was applied. Repeat CT images of the biopsy area was performed which demonstrated no gross bleeding or hematoma. The patient tolerated the procedure well without immediate complications. The patient was transported to the [floor/recovery area] in stable condition. CT/Biopsy/Inj or Needle Placement IMPRESSION: Successful CT guided percutaneous right kidney biopsy. Conscious sedation protocol was followed. The patient tolerated the procedure well. Electronically Signed: Geoff Rangel MD at 9:43 EDT ,
[2022-07-16] MEDS: Midazolam 2 MG/2 ML Syringe IV ×2 (08:18→08:34)
[2022-07-16] MEDS: 0.9% Saline Lock 10 ML Syringe IV (08:21)
[2022-07-16] MEDS: fentaNYL 100 MCG/2 ML Ampul IV (08:34)
[2022-07-16] MEDS: Lidocaine 2% (20 ml mdv) 20 ML Vial INFILT (08:45)
--- NOTE | 2022-07-16 08:50 | KID_PTH ---
PATIENT: RONAN NGUYEN LOC: CT U#:[id number] AGE/SX: 51/M ROOM: RE07/16/[address]: Dr. Angeline Sutton DO : 1970 BED: DIS: 07/16/2022 SPEC #: [id number] RECD: 07/16/22 09:07 STATUS: EVELYN REShan #: [id number] KEHINDE: 07/16/22 08:[address]: Angeline Sutton DEPT: SURGICAL PATHOLOGY RECD BY: Swati Ceron ENTERED: 07/16/22 09:13 SP TYPE: KIDNEY OTHR DR: Dr. Pérez Montoya MD Tissues: Kidney, NOS Procedures: Electron Microscopy (ACH) Fluorescent Antibody (ACH) Sp St Grp II Kidney (ACH) Kidney Biopsy (ACH) Fluorescent antibody (ACH) add'l HEADER OPERATION: CT-guided kidney biopsy PRE-OP DIAGNOSIS: Proteinuria, chronic kidney disease TISSUE SUBMITTED: Lower pole right kidney 18-gauge core x4 MICROSCOPIC DIAGNOSIS Kidney, right, renal biopsy: Hypertensive vascular disease (large vessel and small vessel), marked. Hypertensive glomerulosclerosis, marked/advanced. Interstitial fibrosis (50-60%). [See comment.] COMMENT The findings are those of renal parenchyma with marked/advanced (chronic) hypertensive vascular disease (large and small vessel) in addition to advanced hypertensive glomerulosclerosis with sclerotic glomeruli (12 out of 23 examined). An additional glomerulus demonstrates vascular pole (ischemic-type) collapse. There is associated interstitial fibrosis (50-60%). No immune deposits are seen. Of note, some IgA positivity and kappa and lambda positivity are seen within mesangium of some open glomeruli, but this may represent nonspecific trapping. Patients with hepatic disorders (circulatory abnormalities of hepatic parenchyma as well as cirrhosis or hepatic fibrosis) may also demonstrate increased glomerular IgA of mild to moderate amount. Clinical correlation, thus, is essential. Pattern best fits with advanced hypertensive vascular (large vessel and small vessel) disease with moderately to markedly advanced hypertensive glomerulosclerosis. There is moderate interstitial fibrosis. Compensatory hypertrophy of some glomeruli (glomerulomegaly) is seen, most likely as a secondary response to glomerulosclerosis and glomerular dropout; however, this change may also be associated with obesity, increased BMI or in large/large-frame individuals. Clinical correlation is essential. MICROSCOPIC DESCRIPTION LIGHT MICROSCOPY: Good biopsy specimen consisting predominantly of renal cortex and up to 16 glomeruli or portions of glomeruli for histologic evaluation. 10 glomeruli demonstrate global sclerosis and overall shrunken nature; 1 glomerulus demonstrates ischemic-type collapse of vascular pole; remaining glomeruli demonstrate open capillary loops with normal mesangial matrix and cellularity. Open glomeruli are glomerulomegalic most consistent with compensatory hyperfiltration/hypertrophy. No epithelial crescents are seen. Interstitial fibrosis with tubular atrophy is also noted. Mild chronic inflammation is seen within the interstitium. PAS stain highlights sclerotic glomeruli and normal mesangial matrix and cellularity within open glomeruli. Markedly thickened arteries and arteries with intimal fibrosis are also seen. Marked arteriolar hyalinosis is also noted intermittently within the biopsy specimen. Protein resorption droplets are identified within tubular epithelial cell cytoplasm (moderate). Castellon (silver) stain demonstrates sclerotic glomeruli and arterial sclerosis as well as open glomeruli with normal-thickness basement membranes without ?breaks?, ?splits? or irregular luminal outlines. No epithelial crescents are seen. One glomerulus with ischemic-type vascular pole collapse is noted. Trichrome stain highlights sclerotic glomeruli. Interstitial (cortical) fibrosis is estimated at 50-60%. Open glomeruli are negative for fuchsinophilic deposits. Intimal fibrosis of small artery branches as well as arteriolar hyalinosis and arteriolar sclerosis are seen. One glomerulus demonstrates vascular pole collapse. Congo red stain is negative for congophilia and for birefringence and dichromatism by polarization microscopy. IMMUNOFLUORESCENCE: Tissue submitted for immunofluorescence microscopy demonstrates renal cortex and medulla and up to 7 glomeruli or portions of glomeruli for histologic evaluation. Two glomeruli demonstrate global sclerosis and overall shrunken nature/diameter while the remaining glomeruli demonstrate open capillary loops with normal mesangial matrix and cellularity. IgA demonstrates 1-2+ fine granular (nonspecific) mesangial staining, but is negative in tubules and vascular structures. [place] and lambda light chain stains demonstrate 1+ fine granular mesangial (nonspecific) staining of glomeruli, but are negative in tubules and vascular structures. IgG, IgM, C3, C1q and fibrin are negative within glomeruli, tubules and vascular structures. Albumin demonstrates 1+ positivity within tubular resorption droplets within intact tubular cell epithelium, but are negative in glomeruli and vasculature. ELECTRON MICROSCOPY: Toluidine blue-stained sections (thick/?partnership development manager? sections) reveal 2 glomeruli or portions of glomeruli for histologic evaluation. One glomerulus demonstrates global sclerosis and overall shrunken nature/diameter while the second glomerulus demonstrates open capillary loops with normal mesangial matrix and cellularity. Arteriolar hyalinosis is seen. Ultrastructure examination reveals normal thickness basement membrane without electron dense or discrete electron dense deposits and without deposits of any amorphous material as well. Normal foot process arrangement is identified throughout the glomerulus. Although there is rare, focal foot process fusion, no foot process effacement or uniform fusion is noted. Normal podocyte foot processes are seen. GROSS DESCRIPTION The specimen is sent entirely to [facility] for diagnosis. Received in transport medium labeled with the patient?s name and ?right kidney,? the specimen consists of 4 cylindrical cores of renal parenchyma that are 0.4 to 1.1 cm in length. Machine [employer]ian portion is submitted for immunofluorescent microscopy. Machine Tool Electrician portion is submitted for electron microscopy. The remainder of the specimen is entirely submitted as A1.
== END 2022-07-16 23:59 | disposition home or self-care (01) ==
PROVIDERS: PCP Family Medicine; Referring Provider Internal Medicine Nephrology; Visit Provider Internal Medicine Nephrology
DX: R80.9 Proteinuria, unspecified (principal); N18.4 Chronic kidney disease, stage 4 (severe); N25.81 Secondary hyperparathyroidism of renal origin; I12.9 Hypertensive chronic kidney disease with stage 1 through stage 4 chronic kidney disease, or unspecified chronic kidney disease; E66.9 Obesity, unspecified
CPT/HCPCS: 50200; 77012; 88300; 88305; 88313; 88346; 88348; 88350; 99156; J7050; A4216

== ENCOUNTER → 2022-08-06 | Outpatient (CLI) | payer MEDICAID, SELFPAY ==
[2022-08-06 15:50] LABS: Erythrocyte Sedimentation Rate 26 mm/hr (0-20)
[2022-08-06 15:52] LABS: Absolute Lymphocyte Count 1.35 X10^3/uL (0.83-4.51); Absolute Neutrophil Count 5.7 X10^3/uL (2.0-7.7); Basophil# 0.08 X10^3/uL; Eosinophils% 1.3 % (0-5); Hematocrit 39.6 % (40-54); Hemoglobin 13.1 g/dL (13.0-16.5); Lymphocyte # 1.35 X10^3/ul (0.83-4.51); Lymphocyte % 17.7 % (19-41); Mean Corp Hgb Conc 33.1 g/dL (32-36); Mean Corpuscular Hgb 28.8 pg (27.0-32.0); Mean Platelet Vol. 10.1 fl (6.2-12.0); Monocyte# 0.36 X10^3/uL; Monocyte% 4.7 % (0-10); NRBC Flagged by Analyzer 0 % (0-5); Neutrophil # 5.72 X10^3/uL (2.7-7.7); Platelet Count 334 K/mm3 (150-450); RBC Distribution Width SD 41.1 fl (35.1-43.9); Red Blood Count 4.55 M/mm3 (4.6-6.2); White Blood Count 7.6 K/mm3 (4.4-11.0)
[2022-08-06 16:07] LABS: AST(SGOT) 15 U/L (15-37); Alanine Aminotransfer ALT/SGPT 25 U/L (16-61); Albumin, Serum 3.5 g/dL (3.2-5.0); Alkaline Phosphatase 95 U/L (45-117); Anion Gap 5 (5-15); BUN 24 mg/dL (7-18); BUN/Creat Ratio 9.4 RATIO (10-20); CRP < 2.90 mg/L (0.0-3.0); Calcium,Total 9.1 mg/dL (8.5-10.1); Chloride 115 mmol/L (98-107); Creatinine, Serum 2.54 mg/dL (0.70-1.30); EST Glomerular Filtration Rate 28 mL/min (>60); Est Glom Filt Rate - Afr Amer 34 mL/min (>60); Globulin 3.6 g/dL (2.2-4.2); Glucose 113 mg/dL (74-106); Potassium 4.3 mmol/L (3.5-5.1); Protein, Total 7.1 g/dL (6.4-8.2); Sodium Level 138 mmol/L (136-145)
== END | disposition home or self-care (01) ==
LOC: MFPLAB 12:18
PROVIDERS: PCP Family Medicine; Visit Provider Family Medicine
DX: R07.89 Other chest pain (principal)
CPT/HCPCS: 36415; 80053; 85025; 85652; 86140

== ENCOUNTER → 2022-12-03 | Outpatient (CLI) | payer MEDICAID, SELFPAY ==
[2022-12-03 16:01] LABS: Thyroid Stim Hormone (TSH) 1.36 uIU/mL (0.358-3.74)
[2022-12-10 12:08] LABS: Testosterone, % Free 3.16 % (1.50-4.20); Testosterone, Free 14.35 ng/dL (5.00-21.00); Testosterone, Total 454 ng/dL (264-916)
== END | disposition home or self-care (01) ==
LOC: MFPLAB 12:14
PROVIDERS: PCP Family Medicine; Visit Provider Family Medicine
DX: N52.9 Male erectile dysfunction, unspecified (principal)
CPT/HCPCS: 36415; 84402; 84403; 84443

== ENCOUNTER 2022-12-12 13:11 | Observation (INO) | payer MEDICAID, SELFPAY ==
[2022-12-12] VITALS (7 sets, daily range): BP systolic 140–164; BP diastolic 92–107; PULSE 77–106; RESP 15–22; TEMP 36.2–36.8; O2SAT 98–100; BMI 32.7; BMI 32.5
--- NOTE | 2022-12-12 14:45 | RAD_ITS ---
STUDY: X-RAY CHEST REASON FOR EXAM: Male, 52 years old. chest pain TECHNIQUE: COMPARISON: None. FINDINGS: The lungs are clear and expanded. There is no demonstrated pleural abnormality. Normal size heart. Normal mediastinum and stoney. Normal visualized pulmonary arteries. Normal visualized aortic arch and descending thoracic aorta. Normal visualized thoracic spine. Normal visualized ribs, clavicles, and shoulders. There is no demonstrated abnormality of the visualized soft tissue structures of the upper abdomen. RAD/Chest 1 View (Portable) IMPRESSION: No evidence of acute cardiopulmonary process. Electronically Signed: Leon Ling DO at 15:29 EDT ,
[2022-12-12 14:52] LABS: Absolute Lymphocyte Count 1.46 X10^3/uL (0.83-4.51); Absolute Neutrophil Count 6.3 X10^3/uL (2.0-7.7); Basophil# 0.07 X10^3/uL; Basophil% 0.8 % (0-1); Eosinophil# 0.11 X10^3/uL; Eosinophils% 1.3 % (0-5); Hematocrit 37.6 % (40-54); Hemoglobin 12.7 g/dL (13.0-16.5); Lymphocyte # 1.46 X10^3/ul (0.83-4.51); Lymphocyte % 16.9 % (19-41); Mean Corp Hgb Conc 33.8 g/dL (32-36); Mean Corpuscular Hgb 29.6 pg (27.0-32.0); Mean Corpuscular Volume 87.6 fL (80-94); Mean Platelet Vol. 9.2 fl (6.2-12.0); Monocyte# 0.62 X10^3/uL; Monocyte% 7.2 % (0-10); NRBC Flagged by Analyzer 0 % (0-5); Neutrophil # 6.27 X10^3/uL (2.7-7.7); Neutrophil % 72.4 % (47-70); Platelet Count 280 K/mm3 (150-450); RBC Distribution Width CV 12.5 % (11.6-14.6); RBC Distribution Width SD 39.8 fl (35.1-43.9); Red Blood Count 4.29 M/mm3 (4.6-6.2); White Blood Count 8.7 K/mm3 (4.4-11.0)
[2022-12-12 15:09] LABS: AST(SGOT) 14 U/L (15-37); Alanine Aminotransfer ALT/SGPT 21 U/L (16-61); Albumin, Serum 3.2 g/dL (3.2-5.0); Alkaline Phosphatase 75 U/L (45-117); Globulin 3.4 g/dL (2.2-4.2); Protein, Total 6.6 g/dL (6.4-8.2)
[2022-12-12 15:11] LABS: Anion Gap 5 (5-15); BUN 31 mg/dL (7-18); BUN/Creat Ratio 12.8 RATIO (10-20); Chloride 115 mmol/L (98-107); Creatinine, Serum 2.42 mg/dL (0.70-1.30); EST Glomerular Filtration Rate 30 mL/min (>60); Est Glom Filt Rate - Afr Amer 36 mL/min (>60); Estimated Creatinine Clearance 40.35 ml/min; Glucose 96 mg/dL (74-106); Potassium 4.2 mmol/L (3.5-5.1); Sodium Level 142 mmol/L (136-145); Troponin-I HS (w/2H Reflex) 78 pg/mL (3.0-78.0)
[2022-12-12 15:13] LABS: D-Dimer Quantitative (DVT/PE) 0.84 FEU/ug/m (0.27-0.49)
--- NOTE | 2022-12-12 16:29 | VDLE_ITS ---
Reason For Study: Elevated D-dimer RIGHT LEFT GSV is normal. GSV is normal. CFV is compressible, spontaneous, phasic, CFV is compressible, spontaneous, phasic, competent and demonstrates normal competent, and demonstrates normal augmentation. augmentation. FV is compressible, spontaneous, phasic, FV is compressible, spontaneous, phasic, competent and demonstrates normal competent and demonstrates normal augmentation. augmentation. POP V is compressible, spontaneous, phasic, POP V is compressible, spontaneous, phasic, competent and demonstrates normal competent and demonstrates normal augmentation. augmentation. T/P Trunk is compressible. T/P Trunk is compressible. PTV is compressible. PTV is compressible. RT PerV is compressible. LT PerV is compressible. Procedure This is a venous duplex using B-mode, color flow and spectral Doppler. Exam performed portable in ED. A preliminary report was called and/or faxed to Dr. Valles. VL/Venous Duplex US - Aníbal Extrem Interpretation Summary Deep veins of the bilateral lower extremities are patent and compressible segme ntally. There is no evidence of bilateral lower extremity deep vein thrombosis. The bilateral great saphenous veins appear patent and compressible segmentally Ordering Physician: Eugenia Valles Referring Physician: Pérez Montoya MD Performed By: Lilly Saba RVT
--- NOTE | 2022-12-12 16:30 | ED.VIS.CHEST ---
HPI History of Present Illness Chief Complaint: Chest Pain Informant: patient Narrative Narrative: Patient is a 52-year-old male with history of poorly controlled hypertension, chronic cough, obstructive sleep apnea and family history significant for coronary artery disease presenting with chest pain. Patient states this morning he was awake but laying down when he suddenly had a pressure in his chest. Did not radiate. It lasted for about an hour. He denies any associated shortness of breath or difficulty breathing. Patient notes he did have some intermittent nausea and vomiting with this but he states is not uncommon for him to get nauseous or throw up. At the same time he had numbness/tingling in his left arm it was going from his shoulder down. He states currently he only has a some tingling in his left fingers. He states he has similar episode with numbness in his left arm 2 to 3 months ago. At that time he was seen at [facility]. They thought maybe he had a mini stroke. He stayed overnight have her MRI which ultimately was normal. Patient denies any other neurologic symptoms such as numbness, weakness, speech changes or vision changes. He notes his eyes do get blurry from time to time but attributes that to his high blood pressure. Currently does not have blurry vision. No other complaints at this time. [facility] Medical History Anemia Blind, unilateral CPAP (continuous positive airway pressure) dependence Dyspepsia Gastric reflux Hiatal hernia History of echocardiogram History of edema History of hiatal hernia History of pain when walking History of renal disease HTN (hypertension) Left lower quadrant pain Migraine headache Non-smoker Obesity Post-nasal drip Shortness of breath on exertion Sleep apnea Tubulovillous adenoma Unspecified dislocation of unspecified acromioclavicular joint, initial encounter Wears glasses Home Medications ipratropium bromide 21 mcg (0.03 %) nasal spray 2 spray intranasal .every 6 hours PRN Sob &/Or Wheezing #30 mL 09/28/20 [Rx Last Taken Unknown] hydralazine 10 mg tablet 5 mg PO BID 05/17/22 [History Last Taken Unknown] isosorbide mononitrate 60 mg tablet,extended release 24 hr 60 mg PO DAILY 05/17/22 [History Last Taken Unknown] pantoprazole 20 mg tablet,delayed release 20 mg PO DAILY 05/17/22 [History Last Taken Unknown] Allergy/AdvReac Type Severity Reaction Status Date / Time No Known Allergies Allergy Verified 12/12/22 13:13 Family History Mother Hypertension CAD (coronary artery disease) Diabetes Type 2 Father Diabetes Heart disease Cancer Brother Hypertension Sister CVA (cerebral vascular accident) Hypertension Surgical History Cellulitis and abscess of leg History of colonoscopy (~2017) History of esophagogastroduodenoscopy (EGD) (~2014) Hx of local excision of skin lesion Hx of surgical procedure Social History Smoking Status: Never smoker alcohol intake: never ROS ROS ED Constitutional Constitutional ED: Denies chills or fever(s) Eyes Eyes: Reports blurry vision ENT ENT ED: Denies rhinorrhea or sore throat Cardiovascular Cardiovascular: Reports as per HPI and chest pain; Denies palpitations Respiratory/Chest Respiratory/Chest: Reports cough; Denies dyspnea or dyspnea on exertion Gastrointestinal Gastrointestinal: Reports nausea and vomiting; Denies abdominal pain Musculoskeletal Musculoskeletal: Denies arthralgias, back pain, myalgias or neck pain Integumentary Denies rash Neurologic Neurologic: Reports paresthesias LUE Psychiatric Psychiatric: Denies anxiety EXAM Physical Exam Const Vital Signs: 12/12/22 13:13 12/12/22 14:41 12/12/22 17:00 Temperature 97.1 F L Temperature Source Oral Pulse Rate 106 H 81 Respiratory Rate 20 H 15 Blood Pressure 140/92 H 160/103 H Blood Pressure Mean 108 122 Pulse Ox 98 99 Oxygen Delivery Method Room Air Room Air Room Air Positive well nourished and well developed General Appearance ED: well developed and NAD HEENT Reports moist mucous membranes normocephalic and atraumatic Eyes PERRL and EOMs intact bilaterally Neck supple and no JVD Chest Wall inspection of chest normal and palpation of chest normal Resp normal respiratory effort and clear to auscultation bilaterally Cardio regular rate, regular rhythm and no murmurs Peripheral Pulses: pulses 2+ throughout GI normal to inspection, nondistended, normoactive bowel sounds, soft to palpation and non-tender Extremity normal to inspection General Extremety ED: Negative for edema General Extremity: Negative for edema Neuro oriented x3, CN's II-XII intact bilaterally and no sensory deficits noted Neuro Narrative: NIH equals 0 Sensorium / Orientation: awake and alert Psych mental status grossly normal Skin no rashes or lesions noted and no wounds Heart Score History: Moderately Suspicious ECG: Nonspecific Repolarization Age: >45 - <65 years Risk Factors: >/= 3 Risk Factors or History of CAD Troponin: </= Normal Limit Score: 5 MDM MDM MDM Narrative Medical decision making narrative: Patient is evaluated for episode of chest pressure that occurred this morning. There is associated nausea and episode of vomiting. He also developed numbness/tingling in his left arm. My concern is that could be referred cardiac pain. Upon arrival patient is also tachycardic however he is not significantly tachypneic or hypoxic. His work-up shows a initial high-sensitivity troponin of 78 which is upper limit of normal. Repeat troponin is pending. His D-dimer is mildly elevated at 0.84 however patient also has a stable CKD with a GFR of 36 and given that he is no longer having chest symptoms, is not hypoxic and his tachycardia improves at rest I am hesitant to CTA him for pulmonary emboli x-ray she has had more concerned about ACS. Will obtain a venous duplex ultrasound of that is normal likely can forego PE study at this time. Patient does not have any other risk factors for pulmonary emboli. Given the patient's significant family history, poorly controlled hypertension and even though his troponin is normal and still on the normal high and I do think he would benefit from admission for further/extended cardiac evaluation. We will discuss this with the hospitalist. Patient is excepted to hospital service. Patient has been increased of his troponin from 78-87. Is given full dose aspirin. He is agreeable with further admission. Venous duplex is negative making may have less suspicion for pulmonary emboli. Also do not want to potentially given the dye load now for CTA and if he requires a cardiac catheterization. Lab Data Attestation: I reviewed the patient's lab results. Labs: Laboratory Results - last 24 hr 12/12/22 12/12/22 14:38 16:50 WBC 8.7 RBC 4.29 L Hgb 12.7 L Hct 37.6 L MCV 87.6 MCH 29.6 MCHC 33.8 RDW Std Deviation 39.8 RDW Coeff of Bonny 12.5 Plt Count 280 MPV 9.2 Immature Gran % (Auto) 1.400 H Neut % (Auto) 72.4 H Lymph % (Auto) 16.9 L [place] % (Auto) 7.2 Eos % (Auto) 1.3 Baso % (Auto) 0.8 Absolute Neuts (auto) 6.3 Absolute Lymphs (auto) 1.46 Nucleated RBC % 0 D-Dimer Quant (PE/DVT) 0.84 H* Sodium 142 Potassium 4.2 Chloride 115 H Carbon Dioxide 22.0 Anion Gap 5 BUN 31 H Creatinine 2.42 H Estim Creat Clear Calc 40.35 Est GFR (MDRD) Af Amer 36 L Est GFR (MDRD) Non-Af 30 L BUN/Creatinine Ratio 12.8 Glucose 96 Calcium 9.0 Total Bilirubin 0.60 Direct Bilirubin 0.10 AST 14 L ALT 21 Alkaline Phosphatase 75 Troponin I High Sens 78 87 H Total Protein 6.6 Albumin 3.2 Globulin 3.4 Radiography Chest X-Ray - ED: 2 View, Read by ED Physician, Read by Radiologist and No Acute Disease Diagnostic Testing: Clinical Impression(s) from Imaging Studies Chest X-Ray 12/12/22 14:45 IMPRESSION: No evidence of acute cardiopulmonary process. Electronically Signed: Leon Ling DO at 15:29 EDT , Rhythm Strip Rhythm Strip: Sinus Tach Rate: 101 Ectopy: None EKG Initial EKG: Attestation: I personally reviewed and interpreted this EKG as follows: Interpretation: Sinus Tachycardia Comments: Sinus tachycardia at a rate of 101 bpm Left anterior fascicular block Normal intervals Compared to prior EKG patient now meets criteria for left anterior fascicular block Change in R wave progression in anterior leads compared to prior EKG in August 2013 Discharge Plan Triage Chief Complaint: Chest Pain ED Provider: Eugenia Valles Dx/Rx/DC Orders Clinical Impression: Chest pain, HTN (hypertension) Prescriptions: No Action ipratropium bromide 21 mcg (0.03 %) spray,non-aerosol 2 spray INTRANASAL .every 6 hours PRN (Reason: Sob &/Or Wheezing) Qty: 30 6RF Rx Instructions: administer into each nostril hydralazine 10 mg Tablet 5 mg PO BID pantoprazole 20 mg tablet,delayed release (DR/EC) 20 mg PO DAILY Patient Comments: take 1 tablet by mouth once daily isosorbide mononitrate 60 mg Tablet Extended Release 24 Hr 60 mg PO DAILY Primary Care Provider: Pérez Montoya Referrals: Pérez Montoya MD [Primary Care Provider] - Disposition Disposition: Acute Care Hospital [facility]
[2022-12-12 16:46] LABS: Reflex Troponin-HS? (from REC) Y
--- NOTE | 2022-12-12 17:02 | HP.PCM.HOS_ITS ---
HPI - General General Date of Admission: 12/12/22 Date of Service: 12/12/22 Chief Complaint: Chest pain HPI Narrative RONAN NGUYEN is a 52 M with history of hypertension, CKD stage IV, chronic cough, obesity, NED and anemia who presented to [facility] ED on 12/12/2022 with chest pain. Patient seen at bedside, present. Patient sitting comfortably in bed, conversing normally, no acute distress. He currently does not have any chest pain. States the chest pain started at home this morning while he was at rest. Lasted for about 1 hour and then seemed to subside on its own. Was associated with some generalized shortness of breath. Patient denies any consistent shortness of breath with exertion. Denies any low er extremity edema. Denies any recent fevers or chills. No other acute concerns. Labs on admission were notable for white blood cell count of 8.7, hemoglobin 12.7 (at baseline), creatinine 2.4, BMP otherwise normal, troponins 78 up to 87 on recheck. Chest x-ray showed no acute process. [facility] Medical History Anemia Blind, unilateral CPAP (continuous positive airway pressure) dependence Dyspepsia Gastric reflux Hiatal hernia History of echocardiogram History of edema History of hiatal hernia History of pain when walking History of renal disease HTN (hypertension) Left lower quadrant pain Migraine headache Non-smoker Obesity Post-nasal drip Shortness of breath on exertion Sleep apnea Tubulovillous adenoma Unspecified dislocation of unspecified acromioclavicular joint, initial encounter Wears glasses Home Medications pantoprazole 20 mg tablet,delayed release 20 mg PO DAILY 05/17/22 [History Last Taken Unknown] amlodipine 5 mg tablet 10 mg PO DAILY 12/12/22 [History Last Taken Unknown] aspirin 81 mg tablet,delayed release 81 mg PO DAILY 12/12/22 [History Last Taken Unknown] hydralazine 50 mg tablet 75 mg PO DAILY 12/12/22 [History Last Taken Unknown] hydroxyzine HCl 50 mg tablet 50 mg PO .LOYD 12/12/22 [History Last Taken Unknown] minoxidil 10 mg tablet 10 mg PO DAILY 12/12/22 [History Last Taken Unknown] promethazine 25 mg tablet 25 mg PO DAILY 12/12/22 [History Last Taken Unknown] sodium bicarbonate 650 mg tablet 650 mg PO DAILY 12/12/22 [History Last Taken Unknown] sucralfate 1 gram tablet 1 g PO Q6H 12/12/22 [History Last Taken Unknown] Allergy/AdvReac Type Severity Reaction Status Date / Time No Known Allergies Allergy Verified 12/12/22 13:13 Family History Mother Hypertension CAD (coronary artery disease) Diabetes Type 2 Father Diabetes Heart disease Cancer Brother Hypertension Sister CVA (cerebral vascular accident) Hypertension Surgical History Cellulitis and abscess of leg History of colonoscopy (~2016) History of esophagogastroduodenoscopy (EGD) (~2014) Hx of local excision of skin lesion Hx of surgical procedure Social History Smoking Status: Never smoker alcohol intake: never ROS Constitutional Constitutional: Denies change in weight, chills, fatigue or fever(s) Eyes Eyes: Denies change in vision Cardiovascular Cardiovascular: Reports chest pain; Denies dyspnea on exertion, edema, lightheadedness or palpitations Respiratory/Chest Respiratory/Chest: Denies cough Gastrointestinal Gastrointestinal: Denies abdominal pain Vital Signs Vital Signs Vital Signs: 12/12/22 13:13 12/12/22 14:41 Temperature 97.1 F L Temperature Source Oral Pulse Rate 106 H Respiratory Rate 20 H Blood Pressure 140/92 H Blood Pressure Mean 108 Pulse Ox 98 Oxygen Delivery Method Room Air Room Air Weight Weight: 112.4 kg Body Mass Index (BMI) 32.7 Physical Exam Const alert and oriented x3 Constitutional Narrative: Sitting comfortably in bed, conversing normally, obese, no acute distress. General Appearance: cooperative and comfortable HEENT normocephalic, head/scalp atraumatic, hearing grossly normal bilaterally, nasal mucous membranes and turbinates normal and moist oral mucous membranes Eyes PERRL, EOMs intact bilaterally and conjunctivae normal Neck full ROM, no lymphadenopathy and supple Lymph Lymphatic: no lymphadenopathy noted Chest inspection of chest normal Resp normal respiratory effort, normal air movement, no use of accessory muscles and clear to auscultation bilaterally Cardio regular rate, regular rhythm, no murmurs and peripheral pulses 2+ throughout GI normal to inspection, nondistended, normoactive bowel sounds, soft to palpation, non-tender and non-distended Back/Spine normal ROM Extremity normal to inspection, full ROM and no pedal edema Skin no rashes or lesions noted Psych mental status grossly normal Results Lab / Micro Data 12/12/22 14:38 12/12/22 14:38 Labs: Laboratory Results - last 24 hr 12/12/22 14:38: WBC 8.7, RBC 4.29 L, Hgb 12.7 L, Hct 37.6 L, MCV 87.6, MCH 29.6, MCHC 33.8, RDW Std Deviation 39.8, RDW Coeff of Bonny 12.5, Plt Count 280, MPV 9.2, Immature Gran % (Auto) 1.400 H, Neut % (Auto) 72.4 H, Lymph % (Auto) 16.9 L , [place] % (Auto) 7.2, Eos % (Auto) 1.3, Baso % (Auto) 0.8, Absolute Neuts (auto) 6.3, Absolute Lymphs (auto) 1.46, Nucleated RBC % 0, D-Dimer Quant (PE/DVT) 0.84 H*, Sodium 142, Potassium 4.2, Chloride 115 H, Carbon Dioxide 22.0, Anion Gap 5, BUN 31 H, Creatinine 2.42 H, Estim Creat Clear Calc 40.35, Est GFR (MDRD) Af Amer 36 L, Est GFR (MDRD) Non-Af 30 L, BUN/Creatinine Ratio 12.8, Glucose 96, Calcium 9.0, Total Bilirubin 0.60, Direct Bilirubin 0.10, AST 14 L, ALT 21, Alkaline Phosphatase 75, Troponin I High Sens 78, Total Protein 6.6, Albumin 3. 2, Globulin 3.4 Rhythm Strip Rhythm Strip: Sinus Tach Rate: 101 Ectopy: None Radiology Impression Chest X-Ray 12/12/22 14:45 IMPRESSION: No evidence of acute cardiopulmonary process. Electronically Signed: Leon Ling DO at 15:29 EDT , Assessment & Plan Assessment/Plan (1) Chest pain: PLAN: Plan Patient is a 52 M with history of hypertension, CKD stage IV, chronic cough, obesity, NED and anemia who presented to [facility] ED on 12/12/2022 with chest pain. 1. Chest pain Unclear etiology at this time. Moderate concern for cardiac chest pain given his medical history and risk factors. Troponins [address] No acute [address] changes noted on EKG on my read. Last echo was from 2020, showed EF of 65% with stage I diastolic dysfunction. -Repeat echo ordered. Nuclear stress test ordered. Cardiology consulted. A1c and lipid profile ordered. Monitor on telemetry. 2. CKD stage IV Likely secondary to poorly controlled hypertension at baseline. Follows with Dr. Sutton of nephrology. Baseline creatinine around 2.4-2.6. Creatinine 2.4 on admit. Patient reports adequate urine output. -May need to consider involvement of nephrology if left heart catheterization with possible intervention is needed given patient would need contrast load for that procedure. Continue home sodium bicarbonate tablets. 3. Hypertension ? Continue home hydralazine and amlodipine. 4. Chronic cough ? Continue home albuterol inhaler as needed. DVT prophylaxis: Heparin subcu CODE STATUS: Full code, verified Expected disposition: Home, 1 to 2 days Total clinical time spent by myself addressing the patient's medical issues, reviewing all the data, and collaborating with patient's care team: 55 minutes.
[2022-12-12 17:19] LABS: Troponin-I HS 87 pg/mL (3.0-78.0)
[2022-12-12] MEDS: Aspirin 81 MG TAB.CHEW 324 MG PO (17:34)
--- NOTE | 2022-12-12 18:35 | ECHOCS_ITS ---
Reason For Study: CHEST PAIN Procedure This was a 2D Doppler, Color Flow transthoracic echocardiogram. The study was technically difficult. Contrast injection was performed. Exam performed in department. Left Ventricle Normal LV size. Moderate concentric left ventricular hypertrophy. Left ventricular systolic function is hyperdynamic. The left ventricular ejection fraction is 70 %. Stage 1 diastolic dysfunction. Right Ventricle Normal right ventricle. Atria The left and right atria are normal. Mitral Valve The mitral valve is structurally normal. No prolapse or stenosis seen. Tricuspid Valve Normal tricuspid valve. Aortic Valve Trisinus/trileaflet aortic valve. Pulmonic Valve The pulmonic valve is not well visualized. Great Vessels Mildly dilated aortic root. Pericardium/Pleural No pericardial effusion. Medication Diluted definity 2.5ml given slow IV push to enhance endocardial definition. MMode/2D Measurements & Calculations LVIDd: 4.6 cm IVSd: 1.6 cm Ao root diam: 3.8 cm LVIDs: 2.8 cm LVPWd: 1.6 cm RVDd: 2.7 cm FS: 38.8 % LAV(MOD-sp4): 73.7 ml LVAd ap4: 29.3 cm2 SV(MOD-sp4): 31.8 ml LVLd ap4: 9.5 cm EDV(MOD-sp4): 74.1 ml EDV(sp4-el): 77.0 ml LVAs ap4: 19.5 cm2 LVLs ap4: 8.6 cm ESV(MOD-sp4): 42.3 ml ESV(sp4-el): 37.5 ml EF(MOD-sp4): 42.9 % EF(sp4-el): 51.3 % SV(sp4-el): 39.5 ml LA A4 area: 23.2 cm2 LA dimension(2D): 3.5 cm RA A4 area: 19.7 cm2 TAPSE: 2.6 cm Time Measurements MV dec time: 0.06 sec Doppler Measurements & Calculations MV E max harjeet: 81.6 cm/sec Lat Peak E' Harjeet: 8.8 cm/sec Med Peak E' Harjeet: 8.3 cm/sec MV A max harjeet: 108.0 cm/sec E/E' lat: 9.3 E/E' med: 9.8 MV E/A: 0.76 MV V2 max: 129.0 cm/sec MV dec slope: 1344 cm/sec2 Ao V2 max: 160.4 cm/sec MV max P.7 mmHg Ao max P.3 mmHg MV V2 mean: 88.6 cm/sec Ao V2 mean: 115.0 cm/sec MV mean P.6 mmHg Ao mean P.9 mmHg MV V2 VTI: 22.3 cm Ao V2 VTI: 31.2 cm AV (velocity ratio): 0.93 LV V1 max: 135.8 cm/sec PA V2 max: 142.1 cm/sec LV V1 max P.4 mmHg PA V2 mean: 101.4 cm/sec LV V1 mean P.2 mmHg LV V1 mean: 98.7 cm/sec LV V1 VTI: 28.9 cm ECHO/Echo Complete W/ Contrast Interpretation Summary Moderate concentric left ventricular hypertrophy. The left ventricular ejection fraction is 70 %. Stage 1 diastolic dysfunction. Mildly dilated aortic root. Ordering Physician: Jose Anaya Referring Physician: Pérez Montoya MD Performed By: Mariajose Le RCS
[2022-12-12 19:28] LABS: Cholesterol 223 mg/dL (200); Ferritin 108 ng/mL (26-388); High Density Lipoprotein 38 mg/dL; Iron 61 ug/dL (65-175); Iron Binding Capacity,Total 254 ug/dL (250-450); Phosphorus 2.7 mg/dL (2.5-4.9); Triglycerides 274 mg/dL; Very Low Density Lipoprotein 55 mg/dL (5-40)
[2022-12-12 19:32] LABS: Hemoglobin A1c 5.2 % (3.8-5.6)
[2022-12-12 20:47] LABS: Vitamin B12 267 pg/mL (211-911)
[2022-12-12] MEDS: hydrALAZINE 50 MG Tablet PO (21:01)
[2022-12-13] VITALS (7 sets, daily range): BP systolic 123–149; BP diastolic 74–94; PULSE 95–104; RESP 16–18; TEMP 36.4–36.9; O2SAT 99–100
--- NOTE | 2022-12-13 06:00 | EKG12_ITS ---
Test Reason : AM EKG Blood Pressure : / mmHG Vent. Rate : 091 BPM Atrial Rate : 091 BPM P-R Int : 166 ms QRS Dur : 076 ms QT Int : 348 ms P-R-T Axes : 018 -59 011 degrees QTc Int : 428 ms Normal sinus rhythm Left axis deviation Inferior infarct , age undetermined Abnormal ECG When compared with ECG of 12-DEC-2022 13:23, MANUAL COMPARISON REQUIRED, DATA IS UNCONFIRMED Confirmed by TONY MARTÍNEZ, ARIK ([id number]), international editorial producer BETITO COLLINS ([id number]) on 02/03/2023 1:08:02 PM Referred By: Confirmed By:ARIK JIMENEZ MD
[2022-12-13] MEDS: Aspirin E.C. 81 MG Tablet PO (06:22)
[2022-12-13] MEDS: hydrALAZINE 50 MG Tablet PO ×2 (06:22→14:00)
[2022-12-13 07:40] LABS: Troponin-I HS 48 pg/mL (3.0-78.0)
[2022-12-13] MEDS: Pantoprazole Sodium 20 MG Tablet PO (11:02)
[2022-12-13] MEDS: Sodium Bicarbonate 650 MG Tablet PO (11:02)
[2022-12-13] MEDS: amLODIPine 10 MG Tablet PO (11:02)
--- NOTE | 2022-12-13 11:03 | STRESSREP_ITS ---
Stress Test Report Date: 12/13/2022 Procedure: Pharmacologic stress nuclear imaging study Indications: Consent: Per the patient Procedure: The patient underwent pharmacologic (Regadenoson 0.4mg ) evaluation with a peak heart rate of 120 beats per minute (75%predicted maximal heart rate) and a peak blood pressure of 152/86 mmHg. The baseline ECG demonstrated sinus rhythm. The peak pharmacologic ECG demonstrated no ischemic changes. There were no cardiac dysrhythmias pretest, during pharmacologic infusion, or recovery. There was no complaint of chest discomfort during pharmacologic infusion or recovery. The patient was injected with 15.0 millicuries of technetium 99m Cardiolite and subsequently rest SPECT Cardiolite nuclear imaging was obtained in the horizontal long, vertical long, and short axis views. The patient underwent pharmacologic (Regadenoson) evaluation. The patient was injected with 45.0 millicuries of technetium 99m Cardiolite and subsequently stress SPECT Cardiolite nuclear imaging was obtained in the horizontal long, vertical long, and short axis views. A gated Cardiolite study at peak stress was obtained. The examination was stopped secondary to completion of protocol. Rest and stress SPECT Cardiolite nuclear imaging status post realignment, normalization, and attenuation correction demonstrate no fixed or reversible perfusion defects. There is end systolic thickening and brightening. The gated Cardiolite study demonstrates myocardial thickening and inward wall motion. The reported LVEF is 83%. Impression: 1. Pharmacologic (Regadenoson) evaluation 2. Peak pharmacologic ECG with no ischemic changes. 3. There were no cardiac dysrhythmias pretest, during pharmacologic infusion, or recovery. 5. Rest and stress SPECT Cardiolite nuclear imaging demonstrate relative uniform tracer uptake and myocardial perfusion appearing within normal limits. 6. The gated Cardiolite study reports an LVEF of 83%. This note was generated with Wool and the Gangation software. It may contain incorrect words, spelling, and punctuation that were not noted in checking the note before signing.
--- NOTE | 2022-12-13 13:58 | DS.PCM_ITS ---
Providers Date of Admission: 12/12/22 Date of Discharge: 12/13/22 Primary Care Physician: Dr. Pérez Montoya MD Consultations 12/12/22 18:35 Consult: Cardiology Routine Consulting Provider: Preston Lucas Reason for Consult: Chest pain rule out, stress test ordered EMERGENT Consult: No MD Notified: Yes Date Notified: 12/12/22 Time Notified: 17:59 Method of Notification: Text Reason For Visit: CHEST PAIN Diagnosis Discharge Diagnosis (1) Chest pain: Status: Acute Code(s): R07.9 - Chest pain, unspecified Plan #Chest pain, non anginal #CKD IV #NED #Anemia #Hypertension #Obesity #Left ventricular hypertrophy with stage I diastolic dysfunction Medications at Discharge Home Medications pantoprazole 20 mg tablet,delayed release 20 mg PO DAILY 05/17/22 amlodipine 5 mg tablet 10 mg PO DAILY 12/12/22 aspirin 81 mg tablet,delayed release 81 mg PO DAILY 12/12/22 hydralazine 50 mg tablet 75 mg PO DAILY 12/12/22 hydroxyzine HCl 50 mg tablet 50 mg PO .LOYD 12/12/22 minoxidil 10 mg tablet 10 mg PO DAILY 12/12/22 promethazine 25 mg tablet 25 mg PO DAILY 12/12/22 sodium bicarbonate 650 mg tablet 650 mg PO DAILY 12/12/22 sucralfate 1 gram tablet 1 g PO Q6H 12/12/22 atorvastatin 20 mg tablet 20 mg PO QHS #30 tabs 12/13/22 metoprolol tartrate 25 mg tablet 25 mg PO DAILY #60 tabs 12/13/22 Hospital Course Procedures Nuclear stress test and Transthoracic echo Summary of Care Provided Minutes Spent on Discharge: 31 Hospital Course: RONAN NGUYEN is a 52 M with history of hypertension, CKD stage IV, chronic cough, obesity, NED and anemia who presented to [facility] ED on 12/12/2022 with chest pain. Troponins were 78 and [address] changes on EKG, previous echo in 2020 with EF of 65% and stage I diastolic dysfunction. Nuclear stress test and repeat echocardiogram were ordered. Stress test negative and EF 40 demonstrated stage I diastolic dysfunction with no wall motion abnormalities and EF of 70%. Cardiology initially consulted however given normal findings and resolution of symptoms decision was made to DC patient on 25 mg twice daily metoprolol tartrate. On day of discharge patient denied any chest pain or shortness of breath or other complaints, patient comfortable discharge. Patient's calculated ASCVD risk is 10.9%, intermediate, qualifying him for a statin. Statin sent to preferred pharmacy on file. Discharge instructions as follows: -You have been started on the medication, metoprolol, which you will take 25 mg twice daily. -Please follow closely with your primary care provider for blood pressure and risk factor management -Information for cardiology provided below if you have further need to establish with a fish checker -Please call your primary care provider's office upon discharge to schedule a hospital follow up within 1 week. -For any concerning signs or symptoms please call 911 or proceed to the nearest emergency department - It is ALSO recommended that you take atorvastatin 20 mg daily as you are at intermediate risk of vascular disease moving forward and this will help lessen this risk Physical Exam Narrative General: Alert, oriented, no apparent distress HEENT: Atraumatic, normocephalic Eyes: Anicteric, normal conjunctiva, extraocular movements grossly intact Neck: Supple Respiratory: Clear to auscultation bilaterally, normal respiratory effort Cardiovascular: Regular rate and rhythm GI: Soft, nontender, nondistended Extremities: No edema Musculoskeletal: Moving all extremities Neuro: No overt focal neurological deficits Skin: No rashes appreciated Psych: Cooperative Weight / BMI Weight Weight: 111.811 kg Body Mass Index (BMI) 32.5 ABG / Lab / Microbiology Data 12/12/22 14:38 12/12/22 14:38 Laboratory: Laboratory Results - last 24 hr 12/12/22 14:38: WBC 8.7, RBC 4.29 L, Hgb 12.7 L, Hct 37.6 L, MCV 87.6, MCH 29.6, MCHC 33.8, RDW Std Deviation 39.8, RDW Coeff of Bonny 12.5, Plt Count 280, MPV 9.2, Immature Gran % (Auto) 1.400 H, Neut % (Auto) 72.4 H, Lymph % (Auto) 16.9 L , [place] % (Auto) 7.2, Eos % (Auto) 1.3, Baso % (Auto) 0.8, Absolute Neuts (auto) 6.3, Absolute Lymphs (auto) 1.46, Nucleated RBC % 0, D-Dimer Quant (PE/DVT) 0.84 H*, Sodium 142, Potassium 4.2, Chloride 115 H, Carbon Dioxide 22.0, Anion Gap 5, BUN 31 H, Creatinine 2.42 H, Estim Creat Clear Calc 40.35, Est GFR (MDRD) Af Amer 36 L, Est GFR (MDRD) Non-Af 30 L, BUN/Creatinine Ratio 12.8, Glucose 96, Hemoglobin A1c 5.2, Calcium 9.0, Phosphorus 2.7, Magnesium 2.0, Iron 61 L, TIBC 254, Iron Saturation 24.0, Ferritin 108, Total Bilirubin 0.60, Direct Bilirubin 0.10, AST 14 L, ALT 21, Alkaline Phosphatase 75, Troponin I High Sens 78, Total Protein 6.6, Albumin 3.2, Globulin 3.4, Triglycerides 274 H, Cholesterol 223 H, LDL Cholesterol 130, VLDL Cholesterol 55 H, HDL Cholesterol 38 L 12/12/22 16:50: Troponin I High Sens 87 H 12/12/22 20:09: Vitamin B12 267 12/13/22 06:41: Troponin I High Sens 48, Folate 12.40 Radiography Diagnostic Testing: Radiology Impression Chest X-Ray 12/12/22 14:45 IMPRESSION: No evidence of acute cardiopulmonary process. Electronically Signed: Leon Ling DO at 15:29 EDT , Echocardiogram 12/12/22 18:35 Interpretation Summary Moderate concentric left ventricular hypertrophy. The left ventricular ejection fraction is 70 %. Stage 1 diastolic dysfunction. Mildly dilated aortic root. Ordering Physician: Jose Anaya Referring Physician: Pérez Montoya MD Performed By: Mariajose Le RCS D/C Instructions Discharge Diet: - (DASH diet) Meaningful Use Info Meaningful Use Diagnoses (Choose all that apply): None applicable Discharge Plan Admission Admit Date/Time: 12/12/22 17:55 Primary Reason for Your Visit: Chest pain Attending Provider: Latasha Dash Primary Care Provider: Pérez Montoya Consulting Providers: Preston Lucas; Jose Anaya Instructions Patient Instructions: Weight Management: Getting Started, Your Heart Risk Action Plan, DASH Plan Eat Heart Healthy Food, Eating Heart-Healthy Foods Additional Instructions / Restrictions: DISCHARGE INSTRUCTIONS PLEASE READ *Please take this with you to your next doctors appointment* -You have been started on the medication, metoprolol, which you will take 25 mg twice daily. -Please follow closely with your primary care provider for blood pressure and risk factor management -Information for cardiology provided below if you have further need to establish with a fish checker -It is also recommended that you take atorvastatin 20 mg daily as you are at intermediate risk of vascular disease moving forward and this will help lessen this risk -Please call your primary care provider's office upon discharge to schedule a hospital follow up within 1 week. -For any concerning signs or symptoms please call 911 or proceed to the nearest emergency department Discharge Orders/Prescriptions Prescriptions: New metoprolol tartrate 25 mg tablet 25 mg PO DAILY Qty: 60 0RF atorvastatin 20 mg tablet 20 mg PO QHS Qty: 30 0RF Continued pantoprazole 20 mg tablet,delayed release (DR/EC) 20 mg PO DAILY Patient Comments: take 1 tablet by mouth once daily amlodipine 5 mg tablet 10 mg PO DAILY Patient Comments: take 2 tablets by mouth once daily aspirin 81 mg tablet,delayed release (DR/EC) 81 mg PO DAILY Patient Comments: take 1 tablet by mouth once daily hydralazine 50 mg tablet 75 mg PO DAILY Patient Comments: take 1 AND 1/2 tablets by mouth three times a day hydroxyzine HCl 50 mg tablet 50 mg PO .LOYD Patient Comments: take 1/2 to 1 tablet by mouth at bedtime for sleep minoxidil 10 mg tablet 10 mg PO DAILY Patient Comments: take 1/2 tablet by mouth daily for 3 days then INCREASE to 1 tablet daily as directed promethazine 25 mg tablet 25 mg PO DAILY Patient Comments: take 1/2 to 1 tablet by mouth every 8 hours if needed for nausea cough or headache sodium bicarbonate 650 mg tablet 650 mg PO DAILY Patient Comments: take 1 tablet by mouth once daily sucralfate 1 gram tablet 1 g PO Q6H Patient Comments: take 1 tablet by mouth four times a day Referrals / Follow Up: Preston Lucas MD [Med Staff - Active Staff] - Pérez Montoya MD [Primary Care Provider] - Within 1 Week Disposition Disposition (needs filled in before D/C Order can be placed): Home, Self Care Charges/Coding Visit Charges Inpatient E&M: 07139 Disch Hosp >30min
[2022-12-13] MEDS: Heparin Injection (Vial) 5,000 UNIT/ML VIAL 5000 UNIT SC (14:01)
== END 2022-12-13 14:50 | disposition home or self-care (01) ==
LOC: ED 17:27 → PCU 18:05
PROVIDERS: Admitting Provider Hospitalist; Emergency Provider Emergency Medicine; PCP Family Medicine; Visit Provider Internal Medicine
DX: R07.89 Other chest pain (principal); N18.4 Chronic kidney disease, stage 4 (severe); R11.2 Nausea with vomiting, unspecified; R06.02 Shortness of breath; I12.9 Hypertensive chronic kidney disease with stage 1 through stage 4 chronic kidney disease, or unspecified chronic kidney disease; G47.33 Obstructive sleep apnea (adult) (pediatric); E66.9 Obesity, unspecified; Z82.49 Family history of ischemic heart disease and other diseases of the circulatory system; K21.9 Gastro-esophageal reflux disease without esophagitis; Z79.899 Other long term (current) drug therapy; R94.31 Abnormal electrocardiogram [ECG] [EKG]; I44.4 Left anterior fascicular block; Z79.82 Long term (current) use of aspirin
CPT/HCPCS: 36415; 71045; 78452; 80048; 80061; 80076; 82607; 82728; 82746; 83036; 83540; 83550; 83735; 84100; 84484; 85025; 85379; 93005; 93017; 93306; 93970; 96372; 99221; 99285; A9500; Q9957; A4216; C8929; G0378; J2785

== ENCOUNTER → 2023-05-02 | Outpatient (CLI) | payer MEDICAID, SELFPAY ==
--- OUTSIDE RECORDS SUMMARY | 2023-05-02 11:02 | XMS RPT_ITS | CCD ---
Author Name Unknown Address [address] [place] [address] Organization [facility] Care Team Providers Care Block Sealer Name Role Phone AMADOU Buckley RN, Suma Melgoza Unavailable Unavailrachael Buckley RN RN, Suma Melgoza Unavailable Unavailrachael Buckley RN RN, Suma Melgoza Unavailable Unavailabl e Unavailable Primary Care Provider Unavailrachael ABRAMS MD, EMILIE Melgoza Primary Care Physician [phone] EMILIE ABRAMS MD Primary Care Physician [phone] EMILIE ABRAMS MD Primary Care Unavailable CARLOS NORTONP, TAB Rojo Referring Unavail able CARLOS MARTÍNEZ FACP, TAB Rojo Attending Unavail able CHAO DYSON Admitting Unavai lable Medications Current Medications Medication Drug Class(es) Dates Sig (Normalized) Sig (Original) amLODIPine 5 mg oral tablet (2 sources) Dihydropyridine Calcium Channel Mark Start: 08-20-2022 amLODIPine 5 mg oral tablet Dose : 10 mg = 2 tab(s), Oral, qDay, # 60 tab(s), 0 Refill(s), Pharmacy: [facility] #[id number], 185.4, cm, 08/19/22 12:22:00 EDT, Height Start Date: 08/20/22 Status: Ordered Completed/Discontinued Medications Medication Drug Class(es) Dates Sig (Normalized) Sig (Original) ascorbic acid 1000 mg oral tablet (3 sources) Vitamin C take 1 tablet by mouth three times daily ASCORBIC ACID 1000 MG TABS One tablet by mouth three times daily ASCORBIC ACID [id number] Suma Buckley RN RN chlorthalidone 25 mg oral tablet (1 source) Thiazide-like Diuretic Start: 05-16-2020 chlorthalidone (HYGROTON) 25 mg tablet Take by mouth. 0 05/16/2020 Active Problems Active Problems Problem Classification Problem Date Documented Da te Episodic/Chronic Cardiac and circulatory congenital anomalies (1 source) Patent foramen ovale; Translations: [Patent foramen ovale] Onset: 08-20-2022 Chronic Chronic kidney disease (1 source) Chronic kidney disease; Translations: [Chronic kidney disease, unspecified] Onset: 08-19-2022 Chronic Essential hypertension (4 sources) Hypertensive disorder; Translations: [Essential hypertension] Onset: 09-05-2016 09-05-2016 Chronic Other nervous system disorders (1 source) Paresthesia; Translations: [Paresthesia of skin] Onset: 08-19-2022 Episodic Other nutritional; endocrine; and metabolic disorders (3 sources) Overweight; Translations: [Overweight] Onset: 09-05-2016 09-05-2016 Chronic Other upper respiratory infections (1 source) Acute upper respiratory infection; Translations: [Acute upper respiratory infection, unspecified] Episodic Viral infection (1 source) Viral disease; Translations: [Other viral agents as the cause of diseases classified elsewhere] Onset: 04-25-2021 Episodic Past or Other Problems Problem Classification Problem Date Documented Date Episodic/Chronic Abdominal pain (2 sources) Left lower quadrant pain; Translations: [Left lower quadrant pain] Onset: 09-05-2016 09-05-2016 Episodic Headache; including migraine (3 sources) Headache; Translations: [Headache] Onset: 09-05-2016 09-05-2016 Episodic Joint disorders and dislocations; trauma-related (3 sources) Dislocation of acromioclavicular joint; Translations: [Unspecified dislocation of left acromioclavicular joint] 01-31-2012 Episodic Nausea and vomiting (3 sources) Nausea and vomiting; Translations: [Nausea with vomiting, unspecified] 11-02-2014 Episodic Other non-traumatic joint disorders (3 sources) Pain in unspecified shoulder; Translations: [Pain in unspecified shoulder] 01-31-2012 Episodic Skin and subcutaneous tissue infections (3 sources) Cellulitis and abscess of leg, except foot; Translations: [Cellulitis and abscess of leg, except foot] Onset: 09-17-2013 09-17-2013 Episodic Results Test Name Value Interpretation Reference Range Facil ity Vital Signs Date Time Vital Sign Value Performing Clinician Facility 08-20-2022 11:08-0400 Body temperature 97.88 [degF] CHAO ALVARES PULLMAN CL[facility] 08-20-2022 11:08-0400 Diastolic Blood Pressure Non-Invasive 108 1 CHAO ALVARES PULLMAN [facility] 08-20-2022 11:08-0400 Heart rate 89 /min CHAO ALVARES PULLMAN [facility] 08-20-2022 11:08-0400 Reason For Taking VItal Signs CHAO ALVARES PULLMAN [facility] 08-20-2022 11:08-0400 Respiratory rate 16 /min CHAO ALVARES [facility]MAN [facility] 08-20-2022 11:08-0400 Systolic Blood Pressure Non-Invasive 156 1 CHAO ALVARES [facility]MAN [facility] 08-20-2022 09:20-0400 Diastolic Blood Pressure Non-Invasive 96 1 CHAO ALVARES P[facility]MAN [facility] 08-20-2022 09:20-0400 Systolic Blood Pressure Non-Invasive 152 1 CHAO ALVARES P[facility]MAN [facility] 08-20-2022 08:27-0400 Diastolic Blood Pressure Non-Invasive 101 1 CHAO ALVARES P[facility]MAN [facility] 08-20-2022 08:27-0400 Systolic Blood Pressure Non-Invasive 161 1 CHAO ALVARES [facility]MAN [facility] 05-02-2023 07:00-0400 Body temperature 98.42 [degF] CHAO ALVARES PULLMAN [facility] 08-20-2022 07:00-0400 Heart rate 88 /min CHAO ALVARES P[facility]MAN [facility] 08-20-2022 03:39-0400 Body temperature 98.06 [degF] CHAO ALVARES PULLMAN [facility] 08-20-2022 03:39-0400 Respiratory rate 16 /min CHAO ALVARES P[facility]MAN [facility] 08-20-2022 00:10-0400 Heart rate 87 /min CHAO ALVARES P[facility]MAN [facility] 08-20-2022 00:10-0400 Reason For Taking VItal Signs CHAO ALVARES PULLMAN [facility] 08-19-2022 16:55-0400 Heart rate 68 /min CHAO ALVARES P[facility]MAN [facility] 08-19-2022 12:22-0400 Body height 185.4 cm CHAO ALVARES P[facility]MAN [facility] 08-19-2022 12:22-0400 Body weight 117.1 kg CHAO ALVARES PULLMAN [facility] 08-19-2022 12:22-0400 Body weight 34.07 kg/m2 CHAO ALVARES PULLMAN [facility] 08-19-2022 12:13-0400 Heart rate 68 /min CHAO ALVARES P[facility]MAN [facility] 08-19-2022 11:57-0400 Heart rate 77 /min CHAO ALVARES PULLMAN [facility] 08-19-2022 11:13-0400 Heart rate 68 /min CHAO ALVARES P[facility]MAN [facility] 08-19-2022 10:12-0400 Body weight 117.1 kg CHAO ALVARES PULLMAN [facility] 04-25-2021 10:16-0500 Body height 185 cm SARANYA JOHNSON MD [facility] 04-25-2021 10:16-0500 Body temperature 96.8 [degF] SARANYA JOHNSON MD [facility] 04-25-2021 10:16-0500 Body weight 129.5 kg SARANYA JOHNSON MD [facility] 04-25-2021 10:16-0500 Diastolic blood pressure 95 mm[Hg] SARANYA JOHNSON MD [facility] 04-25-2021 10:16-0500 Heart rate 118 /min SARANYA JOHNSON MD [facility] 04-25-2021 10:16-0500 Respiratory rate 20 /min SARANYA JOHNSON MD [facility] 04-25-2021 10:16-0500 Systolic blood pressure 142 mm[Hg] SARANYA JOHNSON MD [facility] 02-01-2021 13:14-0400 Body temperature 98.4 [degF] Ronny Sewell MD Work Phone: [facility] 02-01-2021 13:14-0400 Body weight 126.55 kg Ronny Sewell MD Work Phone: [facility] 02-01-2021 13:14-0400 Diastolic blood pressure 80 mm[Hg] Ronny Sewell MD Work Phone: [facility] 02-01-2021 13:14-0400 Heart rate 98 /min Ronny Sewell MD Work Phone: [facility] 02-01-2021 13:14-0400 Respiratory rate 18 /min Ronny Sewell MD Work Phone: [facility] 02-01-2021 13:14-0400 SaO2% (BldA) [Mass fraction] 96 % Ronny Sewell MD Work Phone: [facility] 02-01-2021 13:14-0400 Systolic blood pressure 132 mm[Hg] Ronny Sewell MD Work Phone: [facility] 09-05-2016 14:41-0400 BMI (Body Mass Index) 35.75 kg/m2 Suma Buckley RN RN [facility] Work Phone: 09-05-2016 14:41-0400 Body Temperature 98.8 [degF] uSma Bucklye RN RN [facility] Work Phone: 09-05-2016 14:41-0400 BP Diastolic 85 mm[Hg] Suma Buckley RN RN [facility] Work Phone: 09-05-2016 14:41-0400 BP Systolic 121 mm[Hg] Suma Buckley RN RN [facility] Work Phone: 09-05-2016 14:41-0400 BSA (Body Surface Area) 2.45 m2 Suma Buckley RN RN [facility] Work Phone: 09-05-2016 14:41-0400 Height 185.42 cm Suma Buckley RN RN [facility] Work Phone: 09-05-2016 14:41-0400 Pulse (Heart Rate) 102 /min Suma Buckley RN RN [facility] Work Phone: 09-05-2016 14:41-0400 Pulse Oximetry 96 % Suma Buckley RN RN [facility] Work Phone: 09-05-2016 14:41-0400 Respiratory Rate 16 /min Suma Buckley RN RN [facility] Work Phone: 09-05-2016 14:41-0400 Weight 122.93 kg Suma Buckley RN RN [facility] Work Phone: 09-05-2016 14:41-0400 Weight 122.92 kg Suma Buckley RN RN [facility] Work Phone: 11-02-2014 09:51-0400 BMI (Body Mass Index) 34.86 kg/m2 Suma Buckley RN RN [facility] Work Phone: 11-02-2014 09:51-0400 Body Temperature 97 [degF] Suma Buckley RN RN [facility] Work Phone: 11-02-2014 09:51-0400 Body weight 113.4 kg Suma Buckley RN RN [facility] Work Phone: 11-02-2014 09:51-0400 BP Diastolic 92 mm[Hg] Suma Buckley RN RN [facility] Work Phone: 11-02-2014 09:51-0400 BP Systolic 130 mm[Hg] Suma Buckley RN RN [facility] Work Phone: 11-02-2014 09:51-0400 BSA (Body Surface Area) 2.32 m2 Suma Buckley RN RN [facility] Work Phone: 11-02-2014 09:51-0400 Height 180.34 cm Suma Buckley RN RN [facility] Work Phone: 11-02-2014 09:51-0400 Pulse (Heart Rate) 70 /min Suma Buckley RN RN [facility] Work Phone: 11-02-2014 09:51-0400 Pulse Oximetry 96 % Suma Buckley RN RN [facility] Work Phone: 11-02-2014 09:51-0400 Respiratory Rate 16 /min Suma Buckley RN RN [facility] Work Phone: Encounters Encounter Date Encounter Type Care Provider Facility Start: 08-19-2022 End: 08-20-2022 ambulatory EMILIE ABRAMS MD Facility:B Start: 08-19-2022 End: 08-20-2022 Observation CHAO ALVARES [facility] Start: 04-25-2021 End: 04-25-2021 Emergency department patient visit SARANYA JOHNSON MD [facility] Start: 02-01-2021 End: 02-01-2021 Patient encounter procedure Ronny Sewell MD Work Phone: [facility] Procedures Date Procedure Procedure Detail Performing Clinician Start: 11-02-2014 End: 11-02-2014 Documentation of current medications Suma Buckley RN RN Start: 11-02-2014 End: 11-02-2014 Documentation of current medications Rita Rebolledo Work Phone: Lower limb structure (body structure) SARANYA JOHNSON MD Lower limb structure (body structure) CHAO ALVARES [facility] Plan of Treatment Date Care Activity Detail Author Start: 02-01-2021 End: 02-15-2021 SARS-CoV-2 (COVID-19) RNA [Presence] in Respiratory specimen by ARIADNA with probe detection 2019 CORONAVIRUS Microbiology Routine URI, acute Expected: 02/01/2021, Expires: 02/15/2021 [facility] Immunizations Immunization Date Immunization Notes Care Provider Carlos Eduardo pepe 02-18-2019 influenza virus vaccine, unspecified formulation CHAO FONSECA [facility] Payers Date Payer Category Payer Unknown [id number] 2020 Medicaid [employer] [facility] [id number] 2020-Present Medicaid [id number] 1970 Unknown [id number] Social History Date Type Detail Facility Start: 02-01-2021 End: 04-25-2021 Tobacco smoking status NEIS Never smoker [facility] in Start: 02-01-2021 Tobacco use and exposure Never used [facility] Work Phone: Start: 1970 Sex Assigned At Not on file [facility] Exposure to SARS-CoV -2 (event) Not sure [facility] Sex Assigned At [facility] Functional Status Date Assessment Result Facility 08-20-2022 Functional Status Room check performed [facility] 08-20-2022 Functional Status [facility] 08-20-2022 Functional Status [facility] 08-20-2022 Functional Status [facility] 08-19-2022 Functional Status [facility] [address] [facility] 08-19-2022 Functional Status Driving, Home management, Personal ADL [facility] Mental Status Date Assessment Result Facility 08-20-2022 Mental Status Oriented x 4 [facility] 08-20-2022 Mental Status [facility] 08-19-2022 Mental Status [facility] 08-19-2022 Mental Status [facility] Clinical Notes 02-01-2021 to 08-20-2022 Note Date & Type Note Facility 08-20-2022 Note Discharge Instructions Thank you for allowing [facility] to assist you with your healthcare needs. The following is important discharge information regarding your hospital visit. Your Care Team [facility] Your Diagnosis Arm paresthesia, left HTN (hypertension) CKD (chronic kidney disease) Arm pain-swelling PFO (patent foramen ovale) What to do next Instructions From Your Doctor You were admitted due to concern for stroke because of your left arm numbness. MRI was negative for stroke. A CT of your neck was done and there was some spinal stenosis but nothing that would affect your arm numbness. A prescription for prednisone taper was sent to your pharmacy. You had resolution of the numbness after receiving a dose of steroids in the hospital. You will not start these steroids until tomorrow since you received a dose today. You had an echocardiogram of your heart and this showed what is called a patent jacobson ovale. This was an incidental finding. You will be started on daily aspirin. Please follow-up with your PCP. If there should be any evidence of strokelike symptoms you will need to follow-up with a ict project manager. Your blood pressure is very poorly controlled. A prescription for an increased dose of hydralazine has been sent to your pharmacy. Additionally a prescription for amlodipine has been sent to your pharmacy. Follow Up Appointments Follow Up with EMILIE ABRAMS MD When Within 2-4 days Why: Please call to schedule your post-hospital follow-up appointment. Where: [facility] [address] [place] [address]- The Following Activity and Diet Have Been Ordered for You Discharge Activity - Ordered -- Resume your pre-hospitalization activity, 08/20/22 10:59:00 EDT Discharge Diet - Ordered -- No changes were made to your diet during your hospital stay. Please resume your pre hospitalization diet on discharge., 08/20/22 10:59:00 EDT Allergies NKA Medications Please ask your primary doctor or pharmacist before taking any other medication not listed, including over the counter drugs, herbal medications, vitamins and or supplements as they may interact with your home medications. What How Much When Instructions Last Dose New amLODIPine (amLODIPine 5 mg oral tablet) 2 tab(s) by mouth Once a day Pickup at [facility] #[id number] 08/20 @ 830am New aspirin (aspirin 81 mg oral delayed release tablet) 1 tab(s) by mouth Every day Pickup at [facility] #[id number] 08/20 @ 830am New predniSONE (prednisone 10mg tab (TAPER)) Taper 40-20-10 mg x 2 days each dose by mouth Every day Duration: 6 Days DO NOT START UNTIL Pickup at [facility] #[id number] start 08/21 Changed hydrALAZINE (hydrALAZINE 25 mg oral tablet) 3 tab(s) by mouth Three (3) times a day Pickup at [facility] #[id number] 08/20 @ 830am Unchanged doxazosin (doxazosin 2 mg oral tablet) 1 tab(s) by mouth Two (2) times a day not given Unchanged pantoprazole (pantoprazole 20 mg oral enteric coated tablet) 1 tab(s) by mouth Once a day 08/20 @ 6am Unchanged pyridoxine (Vitamin B6 50 mg oral tablet) 1 tab(s) by mouth Every day Duration: 10 Days 08/20 @ 830am Unchanged valACYclovir (valACYclovir 1 g oral tablet) 1 tab(s) by mouth Three (3) times a day not given Pharmacy Information [facility] #[id number]: [address], [place] [phone] Please take this list to your next doctor s visit. Bring all medications you take, including over the counter medications, herbals and other supplements with you to your doctor s visit. Patients and families are reminded to discard old lists and to update any records with all medication providers or retail pharmacies. Medication Leaflets amlodipine (serenity mcneil) Billy Arriaga What is the most important information I should know about amlodipine? Follow all directions on your medicine label and package. Tell each of your healthcare providers about all your medical conditions, allergies, and all medicines you use. What is amlodipine? Amlodipine is a calcium channel mark that dilates (widens) blood vessels and improves blood flow. Amlodipine is used to treat chest pain (angina) and other conditions caused by coronary artery disease. Amlodipine is also used to treat high blood pressure (hypertension) in adults and children at least 6 years old. Lowering blood pressure may lower your risk of a stroke or heart attack. Amlodipine may also be used for purposes not listed in this medication guide. What should I discuss with my healthcare provider before taking amlodipine? You should not take amlodipine if you are allergic to it. Tell your doctor if you have ever had: liver disease; or a heart valve problem called aortic stenosis. Tell your doctor if you are or plan to become . It is not known whether amlodipine will harm an unborn baby. However, having high blood pressure during may cause complications such as diabetes or eclampsia (dangerously high blood pressure that can lead to medical problems in both mother and baby). The benefit of treating hypertension may outweigh any risks to the baby. Tell your doctor if you are . How should I take amlodipine? Follow all directions on your prescription label and read all medication guides or instruction sheets. Your doctor may occasionally change your dose. Use the medicine exactly as directed. Take the medicine at the same time each day, with or without food. Shake the oral suspension (liquid) before you measure a dose. Use the dosing syringe provided, or use a medicine dose-measuring device (not a kitchen spoon). Your blood pressure will need to be checked often. Your chest pain may become worse when you first start taking amlodipine or when your dose is increased. Call your doctor if your chest pain is severe or ongoing. If you are being treated for high blood pressure, keep using amlodipine even if you feel well. High blood pressure often has no symptoms. You may need to use blood pressure medicine for the rest of your life. Your hypertension or heart condition may be treated with a combination of drugs. Use all medications as directed and read all medication guides you receive. Do not change your doses or stop taking any of your medications without your doctor's advice. This is especially important if you also take nitroglycerin. Amlodipine is only part of a complete program of treatment that may also include diet, exercise, weight control, and other medications. Follow your diet, medication, and exercise routines very closely. Store at room temperature away from moisture, heat, and light. What happens if I miss a dose? Take the medicine as soon as you can, but skip the missed dose if you are more than 12 hours late for the dose. Do not take two doses at one time. What happens if I overdose? Seek emergency medical attention or call the Poison Help line at . Overdose symptoms may include rapid heartbeats, redness or warmth in your arms or legs, or fainting. What should I avoid while taking amlodipine? Avoid getting up too fast from a sitting or lying position, or you may feel dizzy. What are the possible side effects of amlodipine? Get emergency medical help if you have signs of an allergic reaction: hives; difficulty breathing; swelling of your face, lips, tongue, or throat. In rare cases, when you first start taking amlodipine, your angina may get worse or you could have a heart attack. Seek emergency medical attention or call your doctor right away if you have symptoms such as: chest pain or pressure, pain spreading to your jaw or shoulder, nausea, sweating. Call your doctor at once if you have: pounding heartbeats or fluttering in your chest; worsening chest pain; swelling in your feet or ankles; severe drowsiness; or a light-headed feeling, like you might pass out. Common side effects may include: dizziness, drowsiness; feeling tired; stomach pain, nausea; or flushing (warmth, redness, or tingly feeling). This is not a complete list of side effects and others may occur. Call your doctor for medical advice about side effects. You may report side effects to FDA at 8-701-HXB-9438. What other drugs will affect amlodipine? Tell your doctor about all your other medicines, especially: nitroglycerin; simvastatin (Zocor, Simcor, Vytorin); or any other heart or blood pressure medications. This list is not complete. Other drugs may affect amlodipine, including prescription and kivx-ban-gshvcdv medicines, vitamins, and herbal products. Not all possible drug interactions are listed here. Where can I get more information? Your pharmacist can provide more information about amlodipine. Remember, keep this and all other medicines out of the reach of children, never share your medicines with others, and use this medication only for the indication prescribed. Every effort has been made to ensure that the information provided by [employer]') is accurate, up-to-date, and complete, but no guarantee is made to that effect. Drug information contained herein may be time sensitive. [employer] information has been compiled for use by healthcare practitioners and consumers in the [place] and therefore [employer] does not warrant that uses outside of the [place] are appropriate, unless specifically indicated otherwise. [employer] drug information does not endorse drugs, diagnose patients or recommend therapy. [employer] drug information is an informational resource designed to assist licensed healthcare practitioners in caring for their patients and/or to serve consumers viewing this service as a supplement to, and not a substitute for, the expertise, skill, knowledge and judgment of healthcare practitioners. The absence of a warning for a given drug or drug combination in no way should be construed to indicate that the drug or drug combination is safe, effective or appropriate for any given patient. [employer] does not assume any responsibility for any aspect of healthcare administered with the aid of information [employer] provides. The information contained herein is not intended to cover all possible uses, directions, precautions, warnings, drug interactions, allergic reactions, or adverse effects. If you have questions about the drugs you are taking, check with your doctor, nurse or pharmacist. Copyright 4210-9009 [employer] Version: 15.. Revision Date: 02/15/2019. hydralazine (daisy ko) Apresoline What is the most important information I should know about hydralazine? You should not use this medicine if you have coronary artery disease, or rheumatic heart disease affecting the mitral valve. What is hydralazine? Hydralazine is a vasodilator that works by relaxing the muscles in your blood vessels to help them dilate (widen). This lowers blood pressure and allows blood to flow more easily through your veins and arteries. Hydralazine is used to treat high blood pressure (hypertension). Hydralazine may also be used for purposes not listed in this medication guide. What should I discuss with my healthcare provider before taking hydralazine? You should not use hydralazine if you are allergic to it, or if you have: coronary artery disease; or rheumatic heart disease affecting the mitral valve. To make sure hydralazine is safe for you, tell your doctor if you have ever had: kidney disease; systemic lupus erythematosus; angina (chest pain); or a stroke. It is not known whether this medicine will harm an unborn baby. Tell your doctor if you are or plan to become . Hydralazine can pass into breast milk, but effects on the nursing baby are not known. Tell your doctor if you are breast-feeding. Hydralazine is not approved for use by anyone younger than 18 years old. How should I take hydralazine? Follow all directions on your prescription label. Do not take this medicine in larger or smaller amounts or for longer than recommended. Your blood pressure will need to be checked often. You may also need frequent blood tests. Keep using this medicine as directed, even if you feel well. High blood pressure often has no symptoms. You may need to use blood pressure medicine for the rest of your life. Store at room temperature away from moisture and heat. What happens if I miss a dose? Take the missed dose as soon as you remember. Skip the missed dose if it is almost time for your next scheduled dose. Do not take extra medicine to make up the missed dose. What happens if I overdose? Seek emergency medical attention or call the Poison Help line at . Overdose symptoms may include rapid heartbeats, warmth or tingling under your skin, chest pain, or fainting. What should I avoid while taking hydralazine? Avoid getting up too fast from a sitting or lying position, or you may feel dizzy. Get up slowly and steady yourself to prevent a fall. What are the possible side effects of hydralazine? Get emergency medical help if you have signs of an allergic reaction: hives; difficult breathing; swelling of your face, lips, tongue, or throat. Call your doctor at once if you have: chest pain or pressure, pain spreading to your jaw or shoulder; fast or pounding heartbeats; a light-headed feeling, like you might pass out; numbness, tingling, or burning pain in your hands or feet; painful or difficult urination; little or no urination; or lupus-like syndrome--joint pain or swelling with fever, swollen glands, muscle aches, chest pain, vomiting, unusual thoughts or behavior, and patchy skin color. Common side effects may include: chest pain, fast heart rate; headache; or nausea, vomiting, diarrhea, loss of appetite. This is not a complete list of side effects and others may occur. Call your doctor for medical advice about side effects. You may report side effects to FDA at 0-089-JRJ-6689. What other drugs will affect hydralazine? Tell your doctor about all your current medicines and any you start or stop using, especially: diazoxide (an injectable blood pressure medication); or an MAO inhibitor--isocarboxazid, linezolid, methylene blue injection, phenelzine, rasagiline, selegiline, tranylcypromine, and others. This list is not complete. Other drugs may interact with hydralazine, including prescription and bzbf-eph-yboszyu medicines, vitamins, and herbal products. Not all possible interactions are listed in this medication guide. Where can I get more information? Your pharmacist can provide more information about hydralazine. Remember, keep this and all other medicines out of the reach of children, never share your medicines with others, and use this medication only for the indication prescribed. Every effort has been made to ensure that the information provided by [employer] is accurate, up-to-date, and complete, but no guarantee is made to that effect. Drug information contained herein may be time sensitive. [employer] information has been compiled for use by healthcare practitioners and consumers in the [place] and therefore [employer] does not warrant that uses outside of the [place] are appropriate, unless specifically indicated otherwise. [employer] drug information does not endorse drugs, diagnose patients or recommend therapy. [employer] drug information is an informational resource designed to assist licensed healthcare practitioners in caring for their patients and/or to serve consumers viewing this service as a supplement to, and not a substitute for, the expertise, skill, knowledge and judgment of healthcare practitioners. The absence of a warning for a given drug or drug combination in no way should be construed to indicate that the drug or drug combination is safe, effective or appropriate for any given patient. [employer] does not assume any responsibility for any aspect of healthcare administered with the aid of information [employer] provides. The information contained herein is not intended to cover all possible uses, directions, precautions, warnings, drug interactions, allergic reactions, or adverse effects. If you have questions about the drugs you are taking, check with your doctor, nurse or pharmacist. Copyright 4504-6664 [employer] Version: 5.01. Revision Date: 04/30/2017. prednisone (PRED ni sone) Leah What is the most important information I should know about prednisone? You should not use prednisone if you have a fungal infection anywhere in your body. You should not stop using prednisone suddenly. Follow your doctor's instructions about tapering your dose. What is prednisone? Prednisone is a steroid that reduces inflammation in the body, and also suppresses your immune system. Prednisone is used to treat many different conditions such as hormonal disorders, skin diseases, arthritis, lupus, psoriasis, allergic conditions, ulcerative colitis, Crohn's disease, eye diseases, lung diseases, asthma, tuberculosis, blood cell disorders, kidney disorders, leukemia, lymphoma, multiple sclerosis, organ transplant rejection, swelling from a brain tumor or injury. Prednisone may also be used for purposes not listed in this medication guide. What should I discuss with my healthcare provider before taking prednisone? You should not use prednisone if you are allergic to it, or if you have a fungal infection anywhere in your body. Steroid medication can weaken your immune system, making it easier for you to get an infection or worsening an infection you already have. Tell your doctor about any illness or infection you've had within the past several weeks. Tell your doctor if you have ever had: heart problems, high blood pressure, or a heart attack; glaucoma or cataracts; herpes infection of the eyes; past or present tuberculosis; a parasite infection that causes diarrhea (such as threadworms); any illness that causes diarrhea; underactive thyroid; diabetes; a stomach ulcer, diverticulitis; a colostomy or ileostomy; osteoporosis or low bone mineral density (steroid medication can increase your risk of bone loss); low levels of calcium or potassium in your blood; cirrhosis or other liver disease; mental illness or psychosis; or a muscle disorder such as myasthenia gravis. Long-term use of steroids may lead to bone loss (osteoporosis), especially if you smoke or drink alcohol, if you do not exercise, or if you do not get enough vitamin D or calcium in your diet. It is not known whether this medicine will harm an unborn baby. Tell your doctor if you are or plan to become . You should not breastfeed while using prednisone. How should I take prednisone? Follow all directions on your prescription label and read all medication guides or instruction sheets. Your doctor may occasionally change your dose. Use the medicine exactly as directed. Prednisone is taken daily or every other day, depending on the condition being treated. You may need to take the medicine at a certain time of day. Follow your doctor's instructions about when and how often to take this medicine. Take with food if prednisone upsets your stomach. Measure liquid medicine carefully. Use the dosing syringe provided, or use a medicine dose-measuring device (not a kitchen spoon). Swallow the delayed-release tablet whole and do not crush, chew, or break it. Prednisone can weaken (suppress) your immune system, and you may get an infection more easily. Call your doctor if you have signs of infection (fever, weakness, cold or flu symptoms, skin sores, diarrhea, frequent or recurring illness). If you have major surgery or a severe injury or infection, your prednisone dose needs may change. Make sure any doctor caring for you knows you are using this medicine. If you use this medicine long-term, you may need medical tests and vision exams. In case of emergency, wear or carry medical identification to let others know you use a steroid. You should not stop using prednisone suddenly. Follow your doctor's instructions about tapering your dose. Store at room temperature away from moisture, heat, and light. What happens if I miss a dose? Take the medicine as soon as you can, but skip the missed dose if it is almost time for your next dose. Do not take two doses at one time. What happens if I overdose? Seek emergency medical attention or call the Poison Help line at . High doses or long-term use of prednisone can lead to thinning skin, easy bruising, changes in body fat (especially in your face, neck, back, and waist), increased acne or facial hair, menstrual problems, impotence, or loss of interest in sex. What should I avoid while taking prednisone? Do not receive a 'live' vaccine while using prednisone. The vaccine may not work as well and may not fully protect you from disease. Live vaccines include measles, mumps, rubella (MMR), polio, rotavirus, typhoid, yellow fever, varicella (chickenpox), zoster (shingles), and nasal flu (influenza) vaccine. Avoid being near people who are sick or have infections. Call your doctor for preventive treatment if you are exposed to chickenpox or measles. These conditions can be serious or even fatal in people who are using steroid medicine. Avoid drinking alcohol. What are the possible side effects of prednisone? Get emergency medical help if you have signs of an allergic reaction: hives; difficult breathing; swelling of your face, lips, tongue, or throat. Call your doctor at once if you have: muscle pain or weakness; blurred vision, tunnel vision, eye pain, or seeing halos around lights; severe depression, changes in personality, unusual thoughts or behavior; bloody or tarry stools, coughing up blood or vomit that looks like coffee grounds; swelling, rapid weight gain, feeling short of breath; irregular heartbeats; severe headache, pounding in your neck or ears; decreased adrenal gland hormones--muscle weakness, tiredness, diarrhea, nausea, menstrual changes, skin discoloration, craving salty foods, and feeling light-headed; or low potassium level--leg cramps, constipation, irregular heartbeats, fluttering in your chest, increased thirst or urination, numbness or tingling, muscle weakness or limp feeling. Prednisone can affect growth in children. Tell your doctor if your child is not growing at a normal rate while using this medicine. Common side effects may include: weight gain (especially in your face or your upper back and torso); increased appetite; mood changes, trouble sleeping; changes in your menstrual periods; problems with memory or thought; muscle or joint pain; weakness; headache, dizziness, spinning sensation; nausea, bloating, loss of appetite; slow wound healing; or acne, increased sweating, thinning skin, bruising, pinpoint spots under your skin. This is not a complete list of side effects and others may occur. Call your doctor for medical advice about side effects. You may report side effects to FDA at 4-549-ZGN-9215. What other drugs will affect prednisone? Sometimes it is not safe to use certain medications at the same time. Some drugs can affect your blood levels of other drugs you take, which may increase side effects or make the medications less effective. Tell your doctor about all your current medicines. Many drugs can affect prednisone, especially: bupropion; cyclosporine; digoxin; ketoconazole; an antibiotic; control pills or hormone replacement therapy; a diuretic or 'water pill'; insulin or oral diabetes medicine; a blood thinner--warfarin, Coumadin, Jantoven; or NSAIDs (nonsteroidal anti-inflammatory drugs)--aspirin, ibuprofen (Advil, Motrin), naproxen (Aleve), celecoxib, diclofenac, indomethacin, meloxicam, and others. This list is not complete and many other drugs may affect prednisone. This includes prescription and ufth-nhc-yymfuto medicines, vitamins, and herbal products. Not all possible drug interactions are listed here. Where can I get more information? Your pharmacist can provide more information about prednisone. Remember, keep this and all other medicines out of the reach of children, never share your medicines with others, and use this medication only for the indication prescribed. Every effort has been made to ensure that the information provided by [employer] is accurate, up-to-date, and complete, but no guarantee is made to that effect. Drug information contained herein may be time sensitive. [employer] information has been compiled for use by healthcare practitioners and consumers in the [place] and therefore [employer] does not warrant that uses outside of the [place] are appropriate, unless specifically indicated otherwise. [employer] drug information does not endorse drugs, diagnose patients or recommend therapy. [employer] drug information is an informational resource designed to assist licensed healthcare practitioners in caring for their patients and/or to serve consumers viewing this service as a supplement to, and not a substitute for, the expertise, skill, knowledge and judgment of healthcare practitioners. The absence of a warning for a given drug or drug combination in no way should be construed to indicate that the drug or drug combination is safe, effective or appropriate for any given patient. [employer] does not assume any responsibility for any aspect of healthcare administered with the aid of information [employer] provides. The information contained herein is not intended to cover all possible uses, directions, precautions, warnings, drug interactions, allergic reactions, or adverse effects. If you have questions about the drugs you are taking, check with your doctor, nurse or pharmacist. Copyright [id number] [employer] Version: 10.. Revision Date: 07/16/2018. aspirin (oral) ( pir in) Arthritis Pain, Aspi-Cor, Aspir-Low, Yuniel Plus, Durlaza, Ecotrin, Miniprin, Vazalore What is the most important information I should know about aspirin? Aspirin can cause Haile's syndrome, a serious and sometimes fatal condition in children. What is aspirin? Aspirin is a salicylate (fv-GSV-wg-ate) that is used to treat pain, and reduce fever or inflammation. Aspirin is sometimes used to treat or prevent heart attacks, strokes, and chest pain (angina). Aspirin should be used for these conditions only under the supervision of a doctor. Aspirin may also be used for purposes not listed in this medication guide. What should I discuss with my healthcare provider before taking aspirin? Using aspirin in a child or teenager with flu symptoms or chickenpox can cause a serious or fatal condition called Haile's syndrome. You should not use aspirin if you are allergic to it, or if you have: a recent history of stomach or intestinal bleeding; a bleeding disorder such as hemophilia; or if you have ever had an asthma attack or severe allergic reaction after taking aspirin or an NSAID (non-steroidal anti-inflammatory drug). Tell your doctor if you have ever had: asthma or seasonal allergies; stomach ulcers; liver disease; kidney disease; a bleeding or blood clotting disorder; gout; or heart disease, high blood pressure, or congestive heart failure. Taking aspirin during late may cause bleeding in the mother or the baby during delivery. Tell your doctor if you are or plan to become . You should not breastfeed while using this medicine. How should I take aspirin? Use exactly as directed on the label, or as prescribed by your doctor. Always follow directions on the medicine label about giving aspirin to a child. Take with food if aspirin upsets your stomach. You must chew the chewable tablet before you swallow it. Do not crush, chew, break, or open an enteric-coated or delayed/extended-release pill. Swallow it whole. Tell your doctor if you have a planned surgery. Store at room temperature away from moisture and heat. Do not use aspirin if you smell a strong vinegar odor in the aspirin bottle. The medicine may no longer be effective. What happens if I miss a dose? Aspirin is used when needed. If you are on a dosing schedule, skip any missed dose. Do not use two doses at one time. What happens if I overdose? Seek emergency medical attention or call the Poison Help line at . Overdose may cause stomach pain, vomiting, diarrhea, vision or hearing problems, fast or slow breathing, or confusion. What should I avoid while taking aspirin? Avoid alcohol. Heavy drinking can increase your risk of stomach bleeding. Avoid taking ibuprofen if you take aspirin to prevent stroke or heart attack. Ibuprofen can make aspirin less effective in protecting your heart and blood vessels. Ask your doctor how far apart your doses should be. Ask a doctor or pharmacist before using other medicines for pain, fever, swelling, or cold/flu symptoms. They may contain ingredients similar to aspirin (such as magnesium salicylate, ibuprofen, ketoprofen, or naproxen). What are the possible side effects of aspirin? Get emergency medical help if you have signs of an allergic reaction: hives; difficult breathing; swelling of your face, lips, tongue, or throat. Stop using aspirin and call your doctor at once if you have: ringing in your ears, confusion, hallucinations, rapid breathing, seizure (convulsions); severe nausea, vomiting, or stomach pain; bloody or tarry stools, coughing up blood or vomit that looks like coffee grounds; fever lasting longer than 3 days; or swelling, or pain lasting longer than 10 days. Common side effects may include: upset stomach, heartburn; drowsiness; or mild headache. This is not a complete list of side effects and others may occur. Call your doctor for medical advice about side effects. You may report side effects to FDA at 4-851-WTJ-5356. What other drugs will affect aspirin? Ask your doctor before using aspirin if you take an antidepressant. Taking certain antidepressants with aspirin may cause you to bruise or bleed easily. Ask a doctor or pharmacist before using aspirin with any other medications, especially: a blood thinner (warfarin, Coumadin, Jantoven), or other medication used to prevent blood clots; or other salicylates such as Nuprin Backache Caplet, Kaopectate, KneeRelief, Pamprin Cramp Formula, Pepto-Bismol, Tricosal, Trilisate, and others. This list is not complete. Other drugs may affect aspirin, including prescription and tgjv-axw-pbianpj medicines, vitamins, and herbal products. Not all possible drug interactions are listed here. Where can I get more information? Your pharmacist can provide more information about aspirin. Remember, keep this and all other medicines out of the reach of children, never share your medicines with others, and use this medication only for the indication prescribed. Every effort has been made to ensure that the information provided by [employer] is accurate, up-to-date, and complete, but no guarantee is made to that effect. Drug information contained herein may be time sensitive. [employer] information has been compiled for use by healthcare practitioners and consumers in the [place] and therefore [employer] does not warrant that uses outside of the [place] are appropriate, unless specifically indicated otherwise. [employer] drug information does not endorse drugs, diagnose patients or recommend therapy. [employer] drug information is an informational resource designed to assist licensed healthcare practitioners in caring for their patients and/or to serve consumers viewing this service as a supplement to, and not a substitute for, the expertise, skill, knowledge and judgment of healthcare practitioners. The absence of a warning for a given drug or drug combination in no way should be construed to indicate that the drug or drug combination is safe, effective or appropriate for any given patient. [employer] does not assume any responsibility for any aspect of healthcare administered with the aid of information [employer] provides. The information contained herein is not intended to cover all possible uses, directions, precautions, warnings, drug interactions, allergic reactions, or adverse effects. If you have questions about the drugs you are taking, check with your doctor, nurse or pharmacist. Copyright 4288-3355 [employer] Version: 16.03. Revision Date: 10/16/2020. [employer] Stroke (Completed) You have had a stroke, or cerebrovascular accident (CVA). This is caused by a loss of blood flow to part of your brain. Ischemic type strokes can occur when a blood clot forms inside the carotid artery (main artery from the heart to the brain) or inside the heart and travels to the brain to lodge in a blood vessel and block blood flow. The other common ischemic cause of stroke is a gradual narrowing of the arteries in the brain due to buildup of fatty deposits (plaque). A clot can form at such a narrowing. A second type of stroke, hemorrhagic stroke, occurs when a blood vessel ruptures and stops the flow of blood to part of the brain. Symptoms Blocked blood flow in different areas of the brain can cause different symptoms. If you have had a stroke before, a new one may be different. A memory aid for the basic signs of a stroke is F.A.S.T. F.A.S.T. F: Face drooping, or numbness on one side. This may be more noticeable when you ask the affected person to smile. A: Arm weakness or numbness. The affected person may have trouble using or lifting one side. S: Speech difficulty. Speech may be slurred or hard to understand. The affected person may also use the wrong words. T: Time to call 911. Time is critical in treating a stroke. Call 911 as soon as you suspect a stroke has happened even a small one. The sooner treatment is started the better, even if the symptoms go away. Other common symptoms of a stroke include: Having trouble getting the right words to come out Weakness in one leg Numbness on one side Trouble walking Trouble with coordination Trouble with vision Headache Confusion Dizziness Treatment After you have had a stroke, you are at risk of having another. Be sure to follow up with your healthcare provider for further evaluation and treatment. If problems are found, your healthcare provider will recommend treatment with medicines and/or procedures. To reduce your chance of having another stroke, you may be prescribed medicines. These include medicines to prevent blood clots, such as antiplatelet or anticoagulant medicines. You will likely be referred for some form of physical therapy including speech and occupational therapy if appropriate. Home care Rest at home and don't exert yourself for the next few days. If your healthcare provider has prescribed medicines, take them as directed. Follow-up care Follow up with your healthcare provider, or as advised. Additional tests may be needed. If you had an X-ray, CT scan, MRI, or ECG (electrocardiogram), it will be reviewed by a specialist. You will be notified of any new findings that will affect your care. Call 911 Call 911 if any of these occur: Any of your stroke symptoms worsen New problems with speech, confusion, vision, walking, coordination, facial droop, or weakness or numbness on one side of your body Severe headache, fainting spell, dizziness, or seizure Chest pain or shortness of breath Remember F.A.S.T. (described above). If you notice warning signs and symptoms of stroke, CALL 911 without delay. [id number] [employer]. [address] [place] [address], [place] [address]. All rights reserved. This information is not intended as a substitute for professional medical care. Always follow your healthcare professional's instructions. Additional Information VACCINATE! IT SAVES LIVES! Members of the community who have not yet received the COVID-19 vaccine and would like to receive it can visit one of [facility] vaccine clinics. There are many vaccine clinic locations within the [facility]. For locations and available times, please visit [email or web address] It is important to note that some COVID mobile vaccine clinics are held outdoors and may be canceled in rainy or stormy conditions. To learn more about pediatric vaccinations (ages 5-11), we invite you to visit the [facility] webpage. [email or web address].org/pages/[email or web address]-Hfdzz-Foasidvrhse-Frequently-[email or web address] -Questions.html To learn more about the COVID-19 vaccine, we invite you to visit the CDC website for a list of frequently asked questions. https://www.cdc.gov/coronavirus/2019-n cov/vaccines/faq.html [facility] Patient Portal Access Instructions: Stay connected with your healthcare team and access your personal medical information anytime with the [facility] Patient Portal.If you would like a full copy of your medical records, please contact the [facility] Medical Records Department, Friday through Friday between 8a.m. and 4:30p.m. Please follow the directions below to access the portal: 1.Access the email account you provided upon registration to the hospital.2.Look for an invitation email from [facility].3.Open the email and access the invitation link: Accept Invitation to [facility]4.Fill in the required cedeno to create your account. Sign into www.[employer] with your username and password that you created in the above steps to stay up to date. You can then view a summary of results, a summary of your visits, and the ability to download your summaries to your computer or send the information securely to a physician. Remember that your healthcare information is confidential, so carefully consider who you will allow to register on the [facility] Patient Portal for access to your information. You can also access the [facility] Patient Portal on the [employer] severo. Simply click on Health Records under Health Data and then click on the [employer] logo. HOW TO SAFELY DISPOSE OF PRESCRIPTION MEDICATIONS Please use one of the following methods to safely dispose of your unused medications. 1.Use a drug disposal kit: the drug disposal pouch allows you to safely discard your old and unused drugs. Ask your nurse to give you one when you are discharged.2.Visit a local take-back location: Many local pharmacies and police departments have programs that collect old and unwanted prescription drugs. Call your local pharmacy or go to http://[employer]/0O7Cg1r to find one close to you.3.Make use of household items: Use cat litter or old coffee grounds to dispose medications if other options are not available. Mix your drugs with these household products, seal them in an airtight container and throw it into the garbage. Call [facility]: [phone] to be sure your drugs can be disposed of in this way. Some medicines may require a different approach.4.Never flush your medications down the toilet. IF YOU HAVE BEEN PRESCRIBED AN OPIOID FOR PAIN If you have been prescribed an opioid (such as hydrocodone, oxycodone or morphine), it is critical to understand the possible side effects and risks of opioid pain medications. Even when taken as directed, opioids can have several side effects including: Tolerance, meaning you might need to take more of a medication for the same pain relief. Nausea, vomiting and/or constipation. Sleepiness, dizziness, dry mouth, confusion, depression or itching. Physical dependence, meaning you have withdrawal symptoms when a medication is stopped, can develop within a few days. KNOW YOUR RESPONSIBILITIES It is important to know exactly how much and how often to take the opioid pain medications you are prescribed. Never take opioids in higher amounts or more often than prescribed. Do not combine opioids with alcohol or other drugs that cause drowsiness, such as benzodiazepines, also known as benzos, including diazepam and alprazolam, muscle relaxants or sleep aids. Never sell or share prescription opioids. This is illegal. Store opioids in a secure place and out of reach of others (including children, family, friends and visitors). The last page of this document has been signed and retained as a CHART COPY. Signatures Patient Education Materials (more content not included)... [facility] 08-20-2022 Note ORIGINAL EXAMINATION: CT OF THE CERVICAL SPINE WITHOUT CONTRAST 08/19/2022 5:16 pm TECHNIQUE: CT of the cervical spine was performed without the administration of intravenous contrast. Multiplanar reformatted images are provided for review. Automated exposure control, iterative reconstruction, and/or weight based adjustment of the mA/kV was utilized to reduce the radiation dose to as low as reasonably achievable. COMPARISON: None. HISTORY: ORDERING SYSTEM PROVIDED HISTORY: Reason for Exam: paresthesias left arm, MRI negative for CVA FINDINGS: BONES/ALIGNMENT: There is no acute fracture or traumatic malalignment. DEGENERATIVE CHANGES: Moderate narrowing of the atlanto-odontoid articulation is present. There is moderate multilevel degenerative disc disease with disc space narrowing but only mild endplate degenerative spur formation. No significant central canal stenosis is demonstrated. Bilateral degenerative facet joint disease is present with narrowing and uncovertebral spur formation. The left C3-C4 facet joint shows ankylosis. There is moderate narrowing of the left C2-C3 neural foramen. There is only mild narrowing of bony neural foramina at other levels. SOFT TISSUES: There is no prevertebral soft tissue swelling. No cervical lymph node enlargement is present. Thyroid gland is unremarkable. Lung apices show no sign of acute abnormality. IMPRESSION: Moderate multilevel degenerative disc and facet joint disease with no significant degree of spinal stenosis identified. Neural foraminal narrowing is greatest on the left at C2-C3. Interpreted by: Bulmaro Drummond MD Preliminary Report By: Bulmaro Drummond MD Electronically signed By Bulmaro Drummond MD Dictated Date: 08/20/2022 12:13:53 AM Prelim Date: 08/20/2022 12:21:13 AM Sign Date: 08/20/2022 12:21:13 AM Ordering Provider: CHAO ALVARES [facility] 08-19-2022 Note Date of Service 08/19/2022 Chief Complaint Presesnts with left arm numbness and tingling that started last night at 2200 History of Present Illness 52-year-old male with past medical history significant for hypertension, obesity, NED, anemia, CKD, blindness. Patient presented to [facility] emergency department on 08/19/2022 with left arm numbness and tingling that started at 10 PM last evening. Patient also had intermittent blurred vision but this is not new. He is blind in his left eye and follows with ophthalmology. In the emergency department patient was hypertensive, afebrile, adequate oxygen saturations on room air no leukocytosis. Creatinine 2.53 with a GFR of 27. This is patient's baseline. Troponin 10.8. CT brain negative. Decision was made to admit for further evaluation. On exam today, pt denies any fever or chills. No headache or dizziness. Blind in the left eye. Denies chest pain, palpitations. No cough, dyspnea, sputum production. Denies N/V/D/C. No melena/hematochezia. No dysuria or hematuria. Left arm numbness and tingling. No pain. Review of Systems See HPI for specific ROS. All other systems reviewed and negative. Physical Exam Vitals and Measurements T: 36.6 C (Oral) TMIN: 36.4 C (Oral) TMAX: 37.2 C (Oral) HR: 96(Apical) RR: 18 BP: 168/98 SpO2: 97% HT: 185.4 cm WT: 117.1 kg BMI: 34.07 Weight Dosing Weight: 117.1 kg (08/19/22) Dosing Weight: 117.1 kg (08/19/22) GEN: Appears chronically ill EYES: No conjunctival erythema, drainage. EOMI EARS: Hearing grossly intact. NOSE: No nasal discharge. THROAT: Oral cavity and pharynx pink and moist. CHEST: Normal S1 and S2. Rhythm is regular. Clear to auscultation, without rales, rhonchi, wheezing. ABD: Positive bowel sounds x 4 quads. Soft, nondistended, nontender. EXT: No significant deformity or joint abnormality. No edema. Peripheral pulses intact. NEURO: Sensation grossly intact. NIH 0. SKIN: Skin color normal PSYCH: The mental examination revealed the patient was alert and oriented x 4 Lab Results 08/19 10:37 WBC: 7.6 Hgb: 12.9 L Hct: 37.8 L Platelet: 247 Neutrophil %: 75.9 Glucose Level: 87 Sodium Level: 144 Potassium Level: 4.6 BUN: 43 H Creatinine Lvl (s): 2.53 H Imaging Results and Diagnostics MRI Brain w/o Contrast Result Date: August 19, 2022 Verified By: MINAL DUMONT MD CLINICAL STATEMENT: IMPRESSION: Mild volume loss and small vessel ischemic disease. XR Chest 1 View Result Date: August 19, 2022 Verified By: BLANK BUCKLEY MD CLINICAL STATEMENT: IMPRESSION: No acute radiographic cardiopulmonary findings. CT Head or Brain w/o Contrast Result Date: August 19, 2022 Verified By: MINAL DUMONT MD CLINICAL STATEMENT: IMPRESSION: Mild volume loss and small vessel ischemic disease. EKG EC08/19/22: Sinus rhythm Left anterior fascicular block Abnormal R-wave progression, early transition Borderline T abnormalities, inferior leads Electronic Signature: AYLA BUI DO 08/19/2022 10:47:03 Assessment/Plan 1. Arm paresthesia, left 2. HTN (hypertension) 3. CKD (chronic kidney disease) Left arm paresthesia- There was concern for CVA. MRI brain negative. Carotid ultrasound unremarkable. Echocardiogram shows LVEF of 55 to 60% with normal diastolic. PFO with right to left atrial shunt. WIll start ASA for PFO and refer to cardiology outpatient. WIth paresthesia, will obtain CT cervical spine. HTN- SBP goal 140 or less. Continue home antihypertensives. BP is poorly controlled. Add PRN labetolol. CKD- At baseline. DVT prophylaxis: SCD's Labs, diagnostics, and progress notes reviewed as noted in HPI Code Status:Full Code Plan of care discussed with patient. All questions answered. Patient verbalizes understanding is agreeable to plan of care. This dictation was performed using voice recognition software and may include grammatical and/or spelling errors. Problem List/Past Medical History Ongoing No qualifying data Historical No qualifying data Procedure/Surgical History Leg Medications Home Medications (5) Active doxazosin 2 mg oral tablet 2 mg = 1 tab(s), Oral, BID hydrALAZINE 50 mg oral tablet 50 mg = 1 tab(s), Oral, TID pantoprazole 20 mg oral enteric coated tablet 20 mg = 1 tab(s), Oral, qDay valACYclovir 1 g oral tablet 1 gram(s) = 1 tab(s), Oral, TID Vitamin B6 50 mg oral tablet 50 mg = 1 tab(s), Oral, Daily Allergies NKA Social History Smoking Status - 09/05/2013 Never smoker Alcohol - No Risk, 02/24/2021 Use: Never., 04/25/2021 Home/Environment Living situation: Home/Independent. Safe place to go: Yes., 08/19/2022 Nutrition/Health Type of diet: Low sodium. Appetite Good. Eating Difficulties None. Enteral Feedings No. TPN Feedings No. Skin Breakdown No., 08/19/2022 Substance Abuse - No Risk, 02/24/2021 Use: Never., 04/25/2021 Tobacco - No Risk, 02/24/2021 Nicotine Use: Never (less than 100 in lifetime)., 04/25/2021 Family History Cancer: Father. Dementia: Mother. Diabetes: Father, Sister and Brother. Heart attack: Father. Hypertension: Mother and Father. Osteoporosis: Mother. Stroke: Sister. Immunizations No qualifying data available. Code Status Code Status - Ordered -- 08/19/22 11:39:00 EDT, Full Code, Constant Order Digitally Signed by CHAO ALVARES on 08/19/2022 08:07 PM [facility] 08-19-2022 Note ORIGINAL EXAMINATION: CT OF THE CERVICAL SPINE WITHOUT CONTRAST 08/19/2022 5:16 pm TECHNIQUE: CT of the cervical spine was performed without the administration of intravenous contrast. Multiplanar reformatted images are provided for review. Automated exposure control, iterative reconstruction, and/or weight based adjustment of the mA/kV was utilized to reduce the radiation dose to as low as reasonably achievable. COMPARISON: None. HISTORY: ORDERING SYSTEM PROVIDED HISTORY: Reason for Exam: paresthesias left arm, MRI negative for CVA FINDINGS: BONES/ALIGNMENT: There is no acute fracture or traumatic malalignment. DEGENERATIVE CHANGES: Moderate narrowing of the atlanto-odontoid articulation is present. There is moderate multilevel degenerative disc disease with disc space narrowing but only mild endplate degenerative spur formation. No significant central canal stenosis is demonstrated. Bilateral degenerative facet joint disease is present with narrowing and uncovertebral spur formation. The left C3-C4 facet joint shows ankylosis. There is moderate narrowing of the left C2-C3 neural foramen. There is only mild narrowing of bony neural foramina at other levels. SOFT TISSUES: There is no prevertebral soft tissue swelling. No cervical lymph node enlargement is present. Thyroid gland is unremarkable. Lung apices show no sign of acute abnormality. IMPRESSION: Moderate multilevel degenerative disc and facet joint disease with no significant degree of spinal stenosis identified. Neural foraminal narrowing is greatest on the left at C2-C3. Interpreted by: Bulmaro Drummond MD Preliminary Report By: Bulmaro Drummond MD Electronically signed By Bulmaro Drummond MD Dictated Date: 08/20/2022 12:13:53 AM Prelim Date: 08/20/2022 12:21:13 AM Sign Date: 08/20/2022 12:21:13 AM Ordering Provider: [facility] 08-19-2022 Note ORIGINAL HISTORY: Right arm numbness, weakness COMPARISON: Head CT earlier same day TECHNIQUE: 1. Sagittal T1-weighted images. 2. Axial T2-weighted and T2*-weighted images. 3. Axial FLAIR images. 4. Axial diffusion-weighted images with ADC map. FINDINGS: The ventricles and sulci are normal to mildly enlarged. There are no abnormal intra or extra-axial fluid collections. There are mild scattered punctate and nodular T2 hyperintensities in the cerebral white matter; jacobs-white matter differentiation is maintained. There is no abnormal restriction of diffusion. The globes are asymmetric, with the left being larger than the right. The paranasal sinuses are clear. IMPRESSION: Mild volume loss and small vessel ischemic disease. Interpreted by: Minal Dumont MD Preliminary Report By: Minal Dumont MD Electronically signed By Minal Dumont MD Dictated Date: 08/19/2022 4:16:18 PM Prelim Date: 08/19/2022 4:18:12 PM Sign Date: 08/19/2022 4:18:12 PM Ordering Provider: CHAO [facility] 08-19-2022 Note ORIGINAL HISTORY: Right arm numbness, weakness COMPARISON: Head CT earlier same day TECHNIQUE: 1. Sagittal T1-weighted images. 2. Axial T2-weighted and T2*-weighted images. 3. Axial FLAIR images. 4. Axial diffusion-weighted images with ADC map. FINDINGS: The ventricles and sulci are normal to mildly enlarged. There are no abnormal intra or extra-axial fluid collections. There are mild scattered punctate and nodular T2 hyperintensities in the cerebral white matter; jacobs-white matter differentiation is maintained. There is no abnormal restriction of diffusion. The globes are asymmetric, with the left being larger than the right. The paranasal sinuses are clear. IMPRESSION: Mild volume loss and small vessel ischemic disease. Interpreted by: Minal Dumont MD Preliminary Report By: Minal Dumont MD Electronically signed By Minal Dumont MD Dictated Date: 08/19/2022 4:16:18 PM Prelim Date: 08/19/2022 4:18:12 PM Sign Date: 08/19/2022 4:18:12 PM Ordering Provider: CHAO ALVARES [facility] 1. Arm paresthesia, left 2. HTN (hypertension) 3. CKD (chronic kidney disease) Left arm paresthesia- There was concern for CVA. MRI brain negative. Carotid ultrasound unremarkable. Echocardiogram shows LVEF of 55 to 60% with normal diastolic. PFO with right to left atrial shunt. WIll start ASA for PFO and refer to cardiology outpatient. WIth paresthesia, will obtain CT cervical spine. HTN- SBP goal 140 or less. Continue home antihypertensives. BP is poorly controlled. Add PRN labetolol. CKD- At baseline. DVT prophylaxis: SCD's Labs, diagnostics, and progress notes reviewed as noted in HPI Code Status:Full Code Plan of care discussed with patient. All questions answered. Patient verbalizes understanding is agreeable to plan of care. This dictation was performed using voice recognition software and may include grammatical and/or spelling errors. [facility] 05-01-2023 Hospital Discharge instructions Patient Education 08/19/2022 10:34:16 CVA, Completed Stroke (Completed) You have had a stroke, or cerebrovascular accident (CVA). This is caused by a loss of blood flow topart of your brain. Ischemic type strokes can occur when a blood clot forms inside the carotid artery (main artery from the heart to the brain) or inside the heart and travels to the brain to lodge in a blood vessel and block blood flow. The other common ischemic cause of stroke is a gradual narrowing of the arteries in the brain due to buildup of fatty deposits (plaque). A clot can form at such a narrowing. A second type of stroke, hemorrhagic stroke, occurs when a blood vessel ruptures and stops the flow of blood to part of the brain. Symptoms Blocked blood flow in different areas of the brain can cause different symptoms. If you have had a stroke before, a new one may be different. A memory aid for the basic signs of a stroke is F.A.S.T. F.A.S.T. F: Face drooping, or numbness on one side. This may be more noticeable when you ask the affected person to smile. A: Arm weakness or numbness. The affected person may have trouble using or lifting one side. S: Speech difficulty. Speech may be slurred or hard to understand. The affected person may also usethe wrong words. T: Time to call 911. Time is critical in treating a stroke. Call 911 as soon as you suspect a stroke has happened even a small one. The sooner treatment is started the better, even if the symptoms goaway. Other common symptoms of a stroke include: Having trouble getting the right words to come out Weakness in one leg Numbness on one side Trouble walking Trouble with coordination Trouble with vision Headache Confusion Dizziness Treatment After you have had a stroke, you are at risk of having another. Be sure to follow up with your healthcare provider for further evaluation and treatment. If problems are found, your healthcare provider will recommend treatment with medicines and/or procedures. To reduce your chance of having another stroke, you may be prescribed medicines. These include medicines to prevent blood clots, such as antiplatelet or anticoagulant medicines. You will likely be referred for some form of physical therapy including speech and occupational therapy if appropriate. Home care Rest at home and don't exert yourself for the next few days. If your healthcare provider has prescribed medicines, take them as directed. Follow-up care Follow up with your healthcare provider, or as advised. Additional tests may be needed. If you had an X-ray, CT scan, MRI, or ECG (electrocardiogram), it will be reviewed by a specialist. You will benotified of any new findings that will affect your care. Call 911 Call 911 if any of these occur: Any of your stroke symptoms worsen New problems with speech, confusion, vision, walking, coordination, facial droop, or weakness or numbness on one side of your body Severe headache, fainting spell, dizziness, or seizure Chest pain or shortness of breath Remember F.A.S.T. (described above). If you notice warning signs and symptoms of stroke, CALL 911 without delay. [id number] [employer]. [address] [place] [address]. All rights reserved. This information is not intended as a substitute for professional medical care. Always follow yourhealthcare professional's instructions. Follow Up Care 08/19/2022 10:12:26 With:EMILIE ABRAMS MD Address: [facility] [address] [place] [address]- When:2-4 days Comments:Please call to schedule your post-hospital follow-up appointment. [facility] 05-01-2023 Note ORIGINAL EXAMINATION: ONE XRAY VIEW OF THE CHEST 08/19/2022 11:04 am COMPARISON: None. HISTORY: ORDERING SYSTEM PROVIDED HISTORY: Reason for Exam: chest pain/SOB FINDINGS: The cardiomediastinal silhouette is. There is no focal consolidation, effusion, vascular congestion, or pneumothorax. Monitoring leads overlie the image. IMPRESSION: No acute radiographic cardiopulmonary findings. Interpreted by: Blank Buckley MD Preliminary Report By: Blank Buckley MD Electronically signed By Blank Buckley MD Dictated Date: 08/19/2022 11:20:37 AM Prelim Date: 08/19/2022 11:21:10 AM Sign Date: 08/19/2022 11:21:10 AM Ordering Provider: AYLA [facility]05-01-2023 Note ORIGINAL HISTORY: Change in mental status, weakness, aphasia COMPARISON: No TECHNIQUE: Routine non-contrast head CT with sagittal and coronal reconstructions This exam was performed according to our departmental dose optimization program, and includes the following measures where applicable: automated exposure control, adjustment of the mAs and/or kVp according to patient size and/or exam, and an iterative reconstruction algorithm. FINDINGS: The ventricles and sulci are normal to mildly enlarged. There are no abnormal intra or extra-axial fluid collections. There is mild irregular decreased attenuation in the cerebral white matter; jacobs-white matter differentiation is maintained. The calvaria and the bones of the base of the skull are intact. IMPRESSION: Mild volume loss and small vessel ischemic disease. Interpreted by: Minal Dumont MD Preliminary Report By: Minal Dumont MD Electronically signed By Minal Dumont MD Dictated Date: 08/19/2022 11:13:00 AM Prelim Date: 08/19/2022 11:13:52 AM Sign Date: 08/19/2022 11:13:52 AM Ordering Provider: [facility]05-01-2023 Note ORIGINAL HISTORY: Change in mental status, weakness, aphasia COMPARISON: No TECHNIQUE: Routine non-contrast head CT with sagittal and coronal reconstructions This exam was performed according to our departmental dose optimization program, and includes the following measures where applicable: automated exposure control, adjustment of the mAs and/or kVp according to patient size and/or exam, and an iterative reconstruction algorithm. FINDINGS: The ventricles and sulci are normal to mildly enlarged. There are no abnormal intra or extra-axial fluid collections. There is mild irregular decreased attenuation in the cerebral white matter; jacobs-white matter differentiation is maintained. The calvaria and the bones of the base of the skull are intact. IMPRESSION: Mild volume loss and small vessel ischemic disease. Interpreted by: Minal Dumont MD Preliminary Report By: Minal Dumont MD Electronically signed By Minal Dumont MD Dictated Date: 08/19/2022 11:13:00 AM Prelim Date: 08/19/2022 11:13:52 AM Sign Date: 08/19/2022 11:13:52 AM Ordering Provider: [facility]05-01-2023 Note ORIGINAL EXAMINATION: ONE XRAY VIEW OF THE CHEST 08/19/2022 11:04 am COMPARISON: None. HISTORY: ORDERING SYSTEM PROVIDED HISTORY: Reason for Exam: chest pain/SOB FINDINGS: The cardiomediastinal silhouette is. There is no focal consolidation, effusion, vascular congestion, or pneumothorax. Monitoring leads overlie the image. IMPRESSION: No acute radiographic cardiopulmonary findings. Interpreted by: Blank Buckley MD Preliminary Report By: Blank Buckley MD Electronically signed By Blank Buckley MD Dictated Date: 08/19/2022 11:20:37 AM Prelim Date: 08/19/2022 11:21:10 AM Sign Date: 08/19/2022 11:21:10 AM Ordering Provider: [facility]01-05-2022 Hospital Discharge instructions Patient Education 04/25/2021 10:23:40 Viral Syndrome (Adult) Viral Syndrome (Adult) A viral illness may cause a number of symptoms such as fever. Other symptoms depend on the part of the body that the virus affects. If it settles in your nose, throat, and lungs, it may cause cough, sore throat, congestion, runny nose, headache, earache and other ear symptoms, or shortness of breath. If it settles in your stomach and intestinal tract, it may cause nausea, vomiting, cramping, and diarrhea. Sometimes it causes generalized symptoms like aching all over, feeling tired, loss of energy, or loss of appetite. A viral illness usually lasts anywhere from several days to several weeks, but sometimes it lasts longer. In some cases, a more serious infection can look like a viral syndrome in the first few days of the illness. You may need another exam and additional tests to know the difference. Watch for thewarning signs listed below for when to seek medical advice. Home care Follow these guidelines for taking care of yourself at home: If symptoms are severe, rest at home for the first 2 to 3 days. Stay away from cigarette smoke - both your smoke and the smoke from others. You may use lufg-eqt-oekozko acetaminophen or ibuprofen for fever, muscle aching, and headache, unless another medicine was prescribed for this. If you have chronic liver or kidney disease or ever had a stomach ulcer or gastrointestinal bleeding, talk with your healthcare provider before using these medicines. No one who is younger than 18 and ill with a fever should take aspirin. It may cause severe disease or . Your appetite may be poor, so a light diet is fine. Avoid dehydration by drinking 8 to 12, 8-ounce glasses of fluids each day. This may include water; orange juice; lemonade; apple, grape, and cranberry juice; clear fruit drinks; electrolyte replacement and sports drinks; and decaffeinated teas andcoffee. If you have been diagnosed with a kidney disease, ask your healthcare provider how much andwhat types of fluids you should drink to prevent dehydration. If you have kidney disease, drinking too much fluid can cause it build up in the your body and be dangerous to your health. Plrs-liv-impioqb remedies won't shorten the length of the illness but may be helpful for symptoms such as cough, sore throat, nasal and sinus congestion, or diarrhea. Don't use decongestants if you have high blood pressure. Follow-up care Follow up with your healthcare provider if you do not improve over the next week. Call 911 Call 911 if any of the following occur: Convulsion Feeling weak, dizzy, or like you are going to faint Chest pain, or more than mild shortness of breath When to seek medical advice Call your healthcare provider right away if any of these occur: Cough with lots of colored sputum (mucus) or blood in your sputum Chest pain, shortness of breath, wheezing, or trouble breathing Severe headache; face, neck, or ear pain Severe, constant pain in the lower right side of your belly (abdominal) Continued vomiting (can t keep liquids down) Frequent diarrhea (more than 5 times a day); blood (red or black color) or mucus in diarrhea Feeling weak, dizzy, or like you are going to faint Extreme thirst Fever of 100.4 F (38 C) or higher, or as directed by your healthcare provider [id number] [employer]. [address] [place] [address], [place] [address]. All rights reserved. This information is not intended as a substitute for professional medical care. Always follow yourhealthcare professional's instructions. Follow Up Care 04/25/2021 09:49:45 With:EMILIE ABRAMS MD Address: [address] [place] [address]- When:2-4 days [facility] 10-14-2021 NoteHNO ID: [id number] Author: Ronny Sewell MD Service: ? Author Type: Physician Type: Progress Notes Filed: 02/01/2021 1:36 PM Note Text: Patient presents with: Head Congestion: headache, chills, sore throat and cough x 3 days HPI: Feeling sick for 4 days. Positive symptoms: Cough, Sore throat, Chills, Headache, Body Aches, Malaise, Fatigue, Negative symptoms: Shortness of breath, Chest pain, Earache, Vomiting, Diarrhea, OTC: Tylenol He tested positive for COVID-19 last year. Has not had COVID-19 vaccine. PAST MEDICAL HISTORY Diagnosis Date - Blind left eye - Essential hypertension - Obstructive sleep apnea MEDICATIONS: Current Outpatient Medications Medication Sig - amLODIPine (NORVASC) 5 mg tablet Take by mouth. - chlorthalidone (HYGROTON) 25 mg tablet Take by mouth. - Ipratropium [place] (ATROVENT) 21 mcg (0.03 %) nasal spray Use in the nose. - losartan (COZAAR) 100 mg tablet Take by mouth. - spironolactone (ALDACTONE) 25 mg tablet Take by mouth. - doxazosin (CARDURA) 2 mg tablet take 1 tablet by mouth once daily TO HELP BLOOD PRESSURE AND TO AVOID NIGHT TIME URNIATION - indapamide (LOZOL) 2.5 mg tablet take 1 tablet by mouth daily take TO REDUCE BLOOD PRESSURE - B-COMPLEX tab Take 1 tablet by mouth twice daily. No current facility-administered medications for this visit. ALLERGIES: ALLERGIES No Known Allergies VITALS: BP 132/80 Pulse 98 Temp 36.9 ?C (98.4 ?F) Resp 18 Wt 126.6 kg (279 lb) SpO2 96% PHYSICAL EXAM: GEN: mildly ill appearing HEENT: EOMI with intermittent discordant gaze, mild left proptosis, conjunctiva clear Ears: canals clear. TMs without erythema, bulge, or effusion Sinuses: non-tender frontal sinus, non-tender maxillary sinuses Throat: moist mucous membranes, mild erythema, no exudate Neck: supple, no thyromegaly, no lymphadenopathy HEART: regular rate and rhythm, no murmurs LUNGS: clear to auscultation, no wheezes or crackles, no increased WOB ASSESSMENT/PLAN: 1. URI, acute - ICD9: 465.9, ICD10: J06.9 - suspect viral URI, differential includes COVID-19 with delta variant. - Discussed supportive care treatment with home isolation, rest, cold medicine, and analgesia. - Red flags to seek further treatment include chest pain, shortness of breath, and lethargy; in the ER if severe. - 2019 CORONAVIRUS Ronny Sewell, [facility]10-14-2021 History of Present illness Narrative* Ronny Sewell MD - 02/01/2021 1:21 PM EDT Patient presents with: Head Congestion: headache, chills, sore throat and cough x 3 days HPI: Feeling sick for 4 days. Positive symptoms: Cough, Sore throat, Chills, Headache, Body Aches, Malaise, Fatigue, Negative symptoms: Shortness of breath, Chest pain, Earache, Vomiting, Diarrhea, OTC: Tylenol He tested positive for COVID-19 last year. Has not had COVID-19 vaccine. PAST MEDICAL HISTORY Diagnosis Date Blind left eye Essential hypertension Obstructive sleep apnea MEDICATIONS: Current Outpatient Medications Medication Sig amLODIPine (NORVASC) 5 mg tablet Take by mouth. chlorthalidone (HYGROTON) 25 mg tablet Take by mouth. Ipratropium [place] (ATROVENT) 21 mcg (0.03 %) nasal spray Use in the nose. losartan (COZAAR) 100 mg tablet Take by mouth. spironolactone (ALDACTONE) 25 mg tablet Take by mouth. doxazosin (CARDURA) 2 mg tablet take 1 tablet by mouth once daily TO HELP BLOOD PRESSURE AND TO AVOID NIGHT TIME URNIATION indapamide (LOZOL) 2.5 mg tablet take 1 tablet by mouth daily take TO REDUCE BLOOD PRESSURE B-COMPLEX tab Take 1 tablet by mouth twice daily. No current facility-administered medications for this visit. ALLERGIES: ALLERGIES No Known Allergies VITALS: BP 132/80 Pulse 98 Temp 36.9 C (98.4 F) Resp 18 Wt 126.6 kg (279 lb) SpO2 96% PHYSICAL EXAM: GEN: mildly ill appearing HEENT: EOMI with intermittent discordant gaze, mild left proptosis, conjunctiva clear Ears: canals clear. TMs without erythema, bulge, or effusion Sinuses: non-tender frontal sinus, non-tender maxillary sinuses Throat: moist mucous membranes, mild erythema, no exudate Neck: supple, no thyromegaly, no lymphadenopathy HEART: regular rate and rhythm, no murmurs LUNGS: clear to auscultation, no wheezes or crackles, no increased WOB ASSESSMENT/PLAN: 1. URI, acute - ICD9: 465.9, ICD10: J06.9 - suspect viral URI, differential includes COVID-19 with delta variant. - Discussed supportive care treatment with home isolation, rest, cold medicine, and analgesia. - Red flags to seek further treatment include chest pain, shortness of breath, and lethargy; in theER if severe. - 2019 CORONAVIRUS [facility] No data available for this section [facility] Evaluation note* Diagnosis URI, acute- Primary Acute upper respiratory infections of unspecified site [facility] Health Concerns Infection Onset Date Last Indicated Resolved Time COVID-19 Rule-Out 02/01/2021 02/01/2021 Summary Purpose Family History No Family History Records FoundNo Family History Records Found Advance Directives No Advanced Directives Records FoundNo Advanced Directives Records Found Additional Source Comments Source Comments (unrecognize d section and content) In the event this informatio n is protected by the Federal Confidentiality of Alcohol and Drug Abuse Patient Records regulations: The Federal rules restrict any use of the information to criminally investigate or prosecute any alcohol or drug abuse patient.[facility] Reason for Visit (unrecogniz ed section and content) (unrecognized sect ion and content) No Status Records FoundNo Status Records Found INFORMATION SOURCE (unrecogn ized section and content) DATE CREATED AUTHOR AUTHOR'S ORGANIZ ATION 08/27/2022 [facility] ([place]) Patient Care team informatio n (unrecognized section and content) Care Team Personnel Name: EMILIE ABRAMS MD Member Role: Primary Care Physician Address: Address: [address] [place] [address]- Name: AMADOU Jang Position: RN Member Role: ED RN Name: Concepcion Fam Coder Position: HIM: Coders Member Role: HIM: Coders Name: AYLA BUI DO Position: ED Physician Address: Address: [address] [place] [id number] Care Team Related Persons Name: HELGA DUMONT FOR RECORDS PERTAINING TO PATIENTS WHO ARE OR HAVE BEEN ENROLLED IN A CHEMICAL DEPENDENCY/SUBSTANCEABUSE PROGRAM, SOME INFORMATION MAY BE OMITTED. This clinical summary was aggregated from multiple sources. Caution should be exercised in using it in the provision of clinical care. This summary normalizes information from multiple sources, and as a consequence, information in this document may materially change the coding, format and clinical context of patient data. In addition, data may be omitted in some cases. CLINICAL DECISIONS SHOULD BE BASED ON THE PRIMARY CLINICAL RECORDS. [employer] [facility]. provides no warranty or guarantee of the accuracy or completeness of information in this document.
[2023-05-02 12:14] LABS: Absolute Lymphocyte Count 1.07 X10^3/uL (0.83-4.51); Absolute Neutrophil Count 6.2 X10^3/uL (2.0-7.7); Basophil# 0.06 X10^3/uL; Basophil% 0.8 % (0-1); Eosinophils% 1.3 % (0-5); Hematocrit 36.7 % (40-54); Hemoglobin 12.1 g/dL (13.0-16.5); Lymphocyte # 1.07 X10^3/ul (0.83-4.51); Lymphocyte % 13.5 % (19-41); Mean Corpuscular Hgb 28.8 pg (27.0-32.0); Mean Corpuscular Volume 87.4 fL (80-94); Mean Platelet Vol. 9.9 fl (6.2-12.0); Monocyte# 0.47 X10^3/uL; Monocyte% 5.9 % (0-10); NRBC Flagged by Analyzer 0 % (0-5); Neutrophil # 6.18 X10^3/uL (2.7-7.7); Neutrophil % 78.1 % (47-70); Platelet Count 280 K/mm3 (150-450); RBC Distribution Width CV 12.6 % (11.6-14.6); White Blood Count 7.9 K/mm3 (4.4-11.0)
[2023-05-02 12:38] LABS: ALB/GLOB Ratio 0.8 RATIO (0.9-2.4); AST(SGOT) 18 U/L (15-37); Alanine Aminotransfer ALT/SGPT 17 U/L (16-61); Albumin, Serum 3.2 g/dL (3.2-5.0); Alkaline Phosphatase 94 U/L (45-117); Anion Gap 9 (5-15); BUN 51 mg/dL (7-18); BUN/Creat Ratio 15.7 RATIO (10-20); CRP < 2.90 mg/L (0.0-3.0); Calcium,Total 8.7 mg/dL (8.5-10.1); Chloride 114 mmol/L (98-107); Creatinine, Serum 3.24 mg/dL (0.70-1.30); EST Glomerular Filtration Rate 21 mL/min (>60); Est Glom Filt Rate - Afr Amer 26 mL/min (>60); Ferritin 81 ng/mL (26-388); Globulin 3.9 g/dL (2.2-4.2); Glucose 91 mg/dL (74-106); Protein, Total 7.1 g/dL (6.4-8.2); Sodium Level 141 mmol/L (136-145)
== END | disposition home or self-care (01) ==
LOC: MFPLAB 10:27
PROVIDERS: PCP Family Medicine; Visit Provider Family Medicine
DX: N18.4 Chronic kidney disease, stage 4 (severe) (principal); K29.70 Gastritis, unspecified, without bleeding
CPT/HCPCS: 36415; 80053; 82728; 85025; 86140

== ENCOUNTER → 2023-05-20 | Outpatient (CLI) | payer MEDICAID, SELFPAY ==
[2023-05-20 10:21] LABS: Bacteria 0 SEEN /hpf (None Seen); Mucous, Urine 0 SEEN /hpf (<or=2+); Squamous Epithelial Cells - UA 0 SEEN /hpf (0-5); White Blood Cells 0 SEEN /hpf (0-5)
--- OUTSIDE RECORDS SUMMARY | 2023-05-20 10:50 | XMS RPT_ITS | CCD ---
Author Name Unknown Address [address] [place] [address] Organization [facility] Care Team Providers Care Microstrategy Developer Name Role Phone AMADOU Buckley RN, Suma Melgoza Unavailable Unavailrachael Buckley RN RN, Suma Melgoza Unavailable Unavailrachael Buckley RN RN, Suma Melgoza Unavailable Unavailabl e Unavailable Primary Care Provider Unavailrachael ABRAMS MD, EMILIE Melgoza Primary Care Physician [phone] EMILIE ABRAMS MD Primary Care Physician EMILIE ABRAMS MD Primary Care Unavailable CARLOS [...] qDay, # 60 tab(s), 0 Refill(s), Pharmacy: [id number], 185.4, cm, 08/19/22 12:22:00 EDT, Height Start Date: 08/20/22 Status: Ordered Completed/Discontinued Medications Medication Drug Class(es) Dates Sig (Normalized) Sig (Original) ascorbic acid 1000 mg oral tablet (3 sources) Vitamin C take 1 tablet by mouth three times daily ASCORBIC ACID 1000 MG TABS One tablet by mouth three times daily ASCORBIC ACID [id number] Suma Buckley RN RN chlorthalidone 25 mg [...] 11:08-0400 Body temperature 97.88 [degF] CHAO ALVARES [employer] CONS[employer] [facility] 08-20-2022 11:08-0400 Diastolic Blood Pressure Non-Invasive 108 1 CHAO ALVARES [employer] CONSULTANT [facility] 08-20-2022 11:08-0400 Heart rate 89 /min CHAO ALVARES [employer] CONSULTANT [facility] 08-20-2022 11:08-0400 Reason For Taking VItal Signs CHAO ALVARES [employer] CONSULTANT [facility] 08-20-2022 11:08-0400 Respiratory rate 16 /min CHAO ALVARES [employer] CONSULTANT [facility] 08-20-2022 11:08-0400 Systolic Blood Pressure Non-Invasive 156 1 CHAO ALVARES [employer] CONSULTANT [facility] 08-20-2022 09:20-0400 Diastolic Blood Pressure Non-Invasive 96 1 CHAO ALVARES [employer] CONSULTANT [facility] 08-20-2022 09:20-0400 Systolic Blood Pressure Non-Invasive 152 1 CHAO ALVARES [employer] CONSULTANT [facility] 08-20-2022 08:27-0400 Diastolic Blood Pressure Non-Invasive 101 1 CHAO ALVARES [employer] CONSULTANT [facility] 08-20-2022 08:27-0400 Systolic Blood Pressure Non-Invasive 161 1 CHAO ALVARES [employer] CONSULTANT [facility] 05-02-2023 07:00-0400 Body temperature 98.42 [degF] CHAO ALVARES [employer] CONSULTANT [facility] 08-20-2022 07:00-0400 Heart rate 88 /min CHAO ALVARES [employer] CONSULTANT [facility] 08-20-2022 03:39-0400 Body temperature 98.06 [degF] CHAO ALVARES [employer] CONSULTANT [facility] 08-20-2022 03:39-0400 Respiratory rate 16 /min CHAO ALVARES [employer] CONSULTANT [facility] 08-20-2022 00:10-0400 Heart rate 87 /min CHAO ALVARES [employer] CONSULTANT [facility] 08-20-2022 00:10-0400 Reason For Taking VItal Signs CHAO ALVARES PL[employer] CONSULTANT [facility] 08-19-2022 16:55-0400 Heart rate 68 /min CHAO ALVARES [employer] CONS[employer] [facility] 08-19-2022 12:22-0400 Body height 185.4 cm CHAO ALVARES [employer] [facility] 08-19-2022 12:22-0400 Body weight 117.1 kg CHAO ALVARES [employer] CONSULTANT [facility] 08-19-2022 12:22-0400 Body weight 34.07 kg/m2 CHAO ALVARES [employer] CONSULT[employer] [facility] 08-19-2022 12:13-0400 Heart rate 68 /min CHAO ALVARES [employer] CONS[employer] [facility] 08-19-2022 11:57-0400 Heart rate 77 /min CHAO ALVARES [employer] CONSULTANT [facility] 08-19-2022 11:13-0400 Heart rate 68 /min CHAO ALVARES [employer] CONSULTANT [facility] 08-19-2022 10:12-0400 Body weight 117.1 kg CHAO ALVARES [employer] [facility] 04-25-2021 10:16-0500 Body height 185 cm SARANYA JOHNSON MD [facility] 04-25-2021 10:16-0500 Body temperature 96.8 [degF] SARANYA JOHNSON MD [facility] 04-25-2021 10:16-0500 Body weight 129.5 kg SARANYA JOHNSON MD [facility] 04-25-2021 10:16-0500 Diastolic blood pressure 95 mm[Hg] SARANYA JOHNSON MD [facility] 04-25-2021 10:16-0500 Heart rate 118 /min SARANYA JOHNSON MD [facility] 04-25-2021 10:16-0500 Respiratory rate 20 /min SARANYA JOHNSON MD [facility] 04-25-2021 10:16-0500 Systolic blood pressure 142 mm[Hg] SARANYA JOHNSON MD [facility] 02-01-2021 13:14-0400 Body temperature 98.4 [degF] Ronny Sewell MD Work Phone: [facility] 02-01-2021 13:14-0400 Body weight 126.55 kg Ronny Sewell MD Work Phone: [facility] 02-01-2021 13:14-0400 Diastolic blood pressure 80 mm[Hg] Ronny Sewell MD Work Phone: [facility] 02-01-2021 13:14-0400 Heart rate 98 /min Ronny Sewell MD Work Phone: [facility] 02-01-2021 13:14-0400 Respiratory rate 18 /min Ronny Sewell MD Work Phone: [facility] 02-01-2021 13:14-0400 SaO2% (BldA) [Mass fraction] 96 % Ronny Sewell MD Work Phone: [facility] 02-01-2021 13:14-0400 Systolic blood pressure 132 mm[Hg] Ronny Sewell MD Work Phone: [facility] 09-05-2016 14:41-0400 BMI (Body Mass Index) 35.75 kg/m2 Suma Buckley RN RN [facility] Work Phone: 09-05-2016 14:41-0400 Body Temperature 98.8 [degF] Suma Buckley RN RN [facility] Work Phone: 09-05-2016 14:41-0400 BP Diastolic 85 mm[Hg] Suma Buckley RN RN [facility] Work Phone: 09-05-2016 14:41-0400 BP Systolic 121 mm[Hg] Suma Buckley RN RN [facility] Work Phone: 09-05-2016 14:41-0400 BSA (Body Surface Area) 2.45 m2 Suma Buckley RN RN [facility] Work Phone: 09-05-2016 14:41-0400 Height 185.42 cm Suma Buckley RN RN [facility] Work Phone: 09-05-2016 14:41-0400 Pulse (Heart Rate) 102 /min Suma Buckley RN RN [facility] Work Phone: 09-05-2016 14:41-0400 Pulse Oximetry 96 % Suma Buckley RN RN [facility] Work Phone: 09-05-2016 14:41-0400 Respiratory Rate 16 /min Suma Buckley RN RN [facility] Work Phone: 09-05-2016 14:41-0400 Weight 122.93 kg Suma Buckley RN RN [facility] Work Phone: 09-05-2016 14:41-0400 Weight 122.92 kg Suma Buckley RN RN [facility] Work Phone: 11-02-2014 09:51-0400 BMI (Body Mass Index) 34.86 kg/m2 Suma Buclkey RN RN [facility] Work Phone: 11-02-2014 09:51-0400 Body Temperature 97 [degF] Suma Buckley RN RN [facility] Work Phone: 11-02-2014 09:51-0400 Body weight 113.4 kg Suma Buckley RN RN [facility] Work Phone: 11-02-2014 09:51-0400 BP Diastolic 92 mm[Hg] Suma Buckley RN RN [facility] Work Phone: 11-02-2014 09:51-0400 BP Systolic 130 mm[Hg] Suma Buckley RN RN [facility] Work Phone: 11-02-2014 09:51-0400 BSA (Body Surface Area) 2.32 m2 Suma Buckley RN RN [facility] Work Phone: 11-02-2014 09:51-0400 Height 180.34 cm Suma Buckley RN RN [facility] Work Phone: 11-02-2014 09:51-0400 Pulse (Heart Rate) 70 /min Suma Buckley RN RN [facility] Work Phone: 11-02-2014 09:51-0400 Pulse Oximetry 96 % Suma Buckley RN RN [facility] Work Phone: 11-02-2014 09:51-0400 Respiratory Rate 16 /min Suma Buckley RN RN [facility] Work Phone: Encounters Encounter Date Encounter Type Care Provider Facility Start: 08-19-2022 End: 08-20-2022 ambulatory EMILIE ABRAMS MD Facility:B Start: 08-19-2022 End: 08-20-2022 Observation CHAO ALVARES APRN-[employer] [facility] Start: 04-25-2021 End: 04-25-2021 Emergency department patient visit SARANYA JOHNSON MD [facility] Start: 02-01-2021 End: 02-01-2021 Patient encounter procedure Ronny Sewell MD Work Phone: [facility] Procedures Date Procedure Procedure Detail Performing Clinician Start: 11-02-2014 End: 11-02-2014 Documentation of current medications Suma Buckley RN RN Start: 11-02-2014 End: 11-02-2014 Documentation of current medications Rita Rebolledo Work Phone: Lower limb structure (body structure) SARANYA JOHNSON MD Lower limb structure (body structure) CHAO ALVARES APRN-[employer] D[employer] CONSULTANT Plan of Treatment Date Care Activity Detail Author Start: 02-01-2021 End: 02-15-2021 SARS-CoV-2 (COVID-19) RNA [Presence] in Respiratory specimen by ARIADNA with probe detection 2019 CORONAVIRUS Microbiology Routine URI, acute Expected: 02/01/2021, Expires: 02/15/2021 [facility] Immunizations Immunization Date Immunization Notes Care Provider Carlos Eduardo pepe 02-18-2019 influenza virus vaccine, unspecified formulation CHAO FONSECA [facility] Payers Date Payer Category Payer Unknown [id number] 2020 Medicaid [employer] [facility] [id number] 2020-Present Medicaid [id number] 1970 Unknown [id number] Social History Date Type Detail Facility Start: 02-01-2021 End: 04-25-2021 Tobacco smoking status PRIS Never smoker [facility] in Start: 02-01-2021 Tobacco use and exposure Never used [facility] Work Phone: Start: 1970 Sex Assigned At [facility] file [facility] Exposure to SARS-CoV -2 (event) Not sure [facility] Sex Assigned At [facility] Functional Status Date Assessment Result Facility 08-20-2022 Functional Status Room check performed [facility] 08-20-2022 Functional Status [facility] 08-20-2022 Functional Status [facility] 08-20-2022 Functional Status [facility] 08-19-2022 Functional Status Dinner Percent 100 [facility] 08-19-2022 Functional Status Driving, Home management, Personal ADL [facility] Mental Status Date Assessment Result Facility 08-20-2022 Mental Status Oriented x 4 [facility] 08-20-2022 Mental Status [facility] 08-19-2022 Mental Status [facility] 08-19-2022 Mental Status [facility] Clinical Notes 02-01-2021 to 08-20-2022 Note Date & Type Note Facility 08-20-2022 Note Discharge Instructions Thank you for allowing [facility] to assist you with your healthcare needs. The following is important discharge information regarding your hospital visit. Your Care Team [facility] Your Diagnosis Arm paresthesia, left [...] you will need to follow-up with a online merchandising specialist. Your blood pressure is very poorly controlled. A prescription for an increased dose of hydralazine has been sent to your pharmacy. Additionally a prescription for amlodipine has been sent to your pharmacy. Follow Up Appointments Follow Up with EMILIE ABRAMS MD When Within 2-4 days Why: Please call to schedule your post-hospital follow-up appointment. Where: [facility] [address] [place] [address]- The Following Activity and Diet Have Been [...] Once a day Pickup at [id number] 08/20 @ 830am New aspirin (aspirin 81 mg oral delayed release tablet) 1 tab(s) by mouth Every day Pickup at [id number] 08/20 @ 830am New predniSONE (prednisone 10mg tab (TAPER)) Taper 40-20-10 mg x 2 days each dose by mouth Every day Duration: 6 Days DO NOT START UNTIL Pickup at [facility] #[id number] start 08/21 Changed hydrALAZINE (hydrALAZINE 25 mg oral tablet) 3 tab(s) by mouth Three (3) times a day Pickup at [facility] #[id number] 08/20 @ 830am Unchanged doxazosin (doxazosin 2 [...] day not given Pharmacy Information [facility][id number]: [address] [place], [place] [id number] [phone] Please take this list to your next [...] may report side effects to FDA at 1-464-AAE-8303. What other drugs will affect amlodipine? Tell your doctor about all your other medicines, especially: nitroglycerin; simvastatin (Zocor, Simcor, Vytorin); or any other heart or blood pressure medications. This list is not complete. Other drugs may affect amlodipine, including prescription and vwvt-oah-szzlgxb medicines, vitamins, and herbal products. Not all [...] to ensure that the information provided by [employer]. ('[employer]') is accurate, up-to-date, and complete, but no guarantee is made to that effect. Drug information contained herein may be time sensitive. [employer] information has been compiled for use by healthcare practitioners and consumers in the [place] and therefore [employer] does not warrant that uses outside of the [place] are appropriate, unless specifically indicated otherwise. [employer] drug information does not endorse drugs, diagnose patients or recommend therapy. [employer] drug information is an informational resource designed [...] effective or appropriate for any given patient. [employer] does not assume any responsibility for any aspect of healthcare administered with the aid of information [employer] provides. The information contained herein is not intended to cover all possible uses, directions, precautions, warnings, drug interactions, allergic reactions, or adverse effects. If you have questions about the drugs you are taking, check with your doctor, nurse or pharmacist. Copyright 7145-2216 [employer]. Version: 15.. Revision Date: 02/15/2019. hydralazine (daisy [...] may report side effects to FDA at 4-582-CKC-9391. What other drugs will affect hydralazine? Tell your doctor about all your current medicines and any you start or stop using, especially: diazoxide (an injectable blood pressure medication); or an MAO inhibitor--isocarboxazid, linezolid, methylene blue injection, phenelzine, rasagiline, selegiline, tranylcypromine, and others. This list is not complete. Other drugs may interact with hydralazine, including prescription and gnhg-oae-otjgrjq medicines, vitamins, and herbal products. Not all [...] to ensure that the information provided by [employer] ('[employer]') is accurate, up-to-date, and complete, but no guarantee is made to that effect. Drug information contained herein may be time sensitive. [employer] information has been compiled for use by healthcare practitioners and consumers in the [place] and therefore [employer] does not warrant that uses outside of the [place] are appropriate, unless specifically indicated otherwise. [employer] drug information does not endorse drugs, diagnose patients or recommend therapy. [employer] drug information is an informational resource designed [...] effective or appropriate for any given patient. [employer] does not assume any responsibility for any aspect of healthcare administered with the aid of information [employer] provides. The information contained herein is not intended to cover all possible uses, directions, precautions, warnings, drug interactions, allergic reactions, or adverse effects. If you have questions about the drugs you are taking, check with your doctor, nurse or pharmacist. Copyright 0884-9624 [employer]. Version: 5.01. Revision Date: 04/30/2017. prednisone (PRED [...] may report side effects to FDA at 6-298-UZH-5120. What other drugs will affect prednisone? Sometimes [...] may affect prednisone. This includes prescription and ronc-oht-tyhvrxu medicines, vitamins, and herbal products. Not all [...] to ensure that the information provided by [employer]. ('[employer]') is accurate, up-to-date, and complete, but no guarantee is made to that effect. Drug information contained herein may be time sensitive. [employer] information has been compiled for use by healthcare practitioners and consumers in the [place] and therefore [employer] does not warrant that uses outside of the [place] are appropriate, unless specifically indicated otherwise. [employer] drug information does not endorse drugs, diagnose patients or recommend therapy. [employer] drug information is an informational resource designed [...] effective or appropriate for any given patient. [employer] does not assume any responsibility for any aspect of healthcare administered with the aid of information [employer] provides. The information contained herein is not intended to cover all possible uses, directions, precautions, warnings, drug interactions, allergic reactions, or adverse effects. If you have questions about the drugs you are taking, check with your doctor, nurse or pharmacist. Copyright 6427-3332 [employer]. Version: 10.. Revision Date: 07/16/2018. aspirin (oral) ( pir in) Arthritis Pain, Aspi-Cor, Aspir-Low, Yuniel Plus, Durlaza, Ecotrin, Miniprin, Vazalore What is the most important information I should know about aspirin? Aspirin can cause Haile's syndrome, a serious and sometimes fatal condition in children. What is aspirin? Aspirin is a salicylate (jd-ZLT-ua-ate) that is used to treat pain, and [...] may report side effects to FDA at 6-259-TOS-5886. What other drugs will affect aspirin? Ask [...] drugs may affect aspirin, including prescription and xhlx-orx-jznwfaz medicines, vitamins, and herbal products. Not all [...] to ensure that the information provided by [employer]. ('[employer]') is accurate, up-to-date, and complete, but no guarantee is made to that effect. Drug information contained herein may be time sensitive. [employer] information has been compiled for use by healthcare practitioners and consumers in the [place] and therefore [employer] does not warrant that uses outside of the [place] are appropriate, unless specifically indicated otherwise. [employer] drug information does not endorse drugs, diagnose patients or recommend therapy. [employer] drug information is an informational resource designed [...] effective or appropriate for any given patient. [employer] does not assume any responsibility for any aspect of healthcare administered with the aid of information [employer] provides. The information contained herein is not intended to cover all possible uses, directions, precautions, warnings, drug interactions, allergic reactions, or adverse effects. If you have questions about the drugs you are taking, check with your doctor, nurse or pharmacist. Copyright 9948-7274 [employer]. Version: 16.03. Revision Date: 10/16/2020. Education Materials [...] symptoms of stroke, CALL 911 without delay. 3982-5421 [employer]. [address] [place] [address], [place] [address]. All rights reserved. This information is not intended as a substitute for professional medical care. Always follow your healthcare professional's instructions. Additional Information VACCINATE! IT SAVES LIVES! Members of the community who have not yet received the COVID-19 vaccine and would like to receive it can visit one of [facility] vaccine clinics. There are many vaccine clinic locations within the [facility]. For locations and available times, please visit [email or web address] [email or web address] It is important to note that some COVID mobile vaccine clinics are held outdoors and may be canceled in rainy or stormy conditions. To learn more about pediatric vaccinations (ages 5-11), we invite you to visit the [facility] webpage. [email or web address]/[email or web address]-Frequently-[email or web address] -Questions.html To learn more about the COVID-19 vaccine, we invite you to visit the CDC website for a list of frequently asked questions. https://www.cdc.gov/coronavirus/2019-n cov/vaccines/faq.html [facility] Patient Portal Access Instructions: Stay connected with your healthcare team and access your personal medical information anytime with the [facility] Patient Portal.If you would like a full copy of your medical records, please contact the [facility] Medical Records Department, Friday through Friday between 8a.m. and 4:30p.m. Please follow the directions below to access the portal: 1.Access the email account you provided upon registration to the hospital.2.Look for an invitation email from [facility].3.Open the email and access the invitation link: Accept Invitation to [facility]4.Fill in the required cedeno to create your account. Sign into [email or web address] with your username and password that you [...] you will allow to register on the [facility] Patient Portal for access to your information. You can also access the [facility] Patient Portal on the [employer] severo. Simply click on Health Records under Health Data and then click on the [employer] logo. HOW TO SAFELY DISPOSE OF PRESCRIPTION [...] Call your local pharmacy or go to [email or web address] to find one close to you.3.Make use of household items: Use cat litter or old coffee grounds to dispose medications if other options are not available. Mix your drugs with these household products, seal them in an airtight container and throw it into the garbage. Call [facility]: [phone] to be sure your drugs can be [...] Patient Education Materials (more content not included)... [facility] 08-20-2022 Note ORIGINAL EXAMINATION: CT OF THE [...] 08/20/2022 12:21:13 AM Ordering Provider: CHAO ALVARES [facility] 08-19-2022 Note Date of Service 08/19/2022 Chief Complaint Presesnts with left arm numbness and tingling that started last night at 2200 History of Present Illness 52-year-old male with past medical history significant for hypertension, obesity, NED, anemia, CKD, blindness. Patient presented to [facility] emergency department on 08/19/2022 with left arm [...] by CHAO ALVARES on 08/19/2022 08:07 PM [facility] 08-19-2022 Note ORIGINAL EXAMINATION: CT OF THE [...] Sign Date: 08/20/2022 12:21:13 AM Ordering Provider: [facility] 08-19-2022 Note ORIGINAL HISTORY: Right arm [...] Date: 08/19/2022 4:18:12 PM Ordering Provider: CHAO [facility] 08-19-2022 Note ORIGINAL HISTORY: Right [...] 08/19/2022 4:18:12 PM Ordering Provider: CHAO ALVARES [facility] 1. Arm paresthesia, left 2. HTN (hypertension) [...] and may include grammatical and/or spelling errors. [facility] 05-01-2023 Hospital Discharge instructions Patient Education 08/19/2022 [...] symptoms of stroke, CALL 911 without delay. 1349-2590 [employer] [address] [place] [address]. All rights reserved. This information is not intended as a substitute for professional medical care. Always follow yourhealthcare professional's instructions. Follow Up Care 08/19/2022 10:12:26 With:EMILIE ABRAMS MD Address: [facility] [address] [place] [address]- When:2-4 days Comments:Please call to schedule your post-hospital follow-up appointment. [facility] 05-01-2023 Note ORIGINAL EXAMINATION: ONE XRAY VIEW [...] Date: 08/19/2022 11:21:10 AM Ordering Provider: AYLA [facility]05-01-2023 Note ORIGINAL HISTORY: Change in mental [...] Sign Date: 08/19/2022 11:13:52 AM Ordering Provider: [facility]05-01-2023 Note ORIGINAL HISTORY: Change in [...] Sign Date: 08/19/2022 11:13:52 AM Ordering Provider: [facility]05-01-2023 Note ORIGINAL EXAMINATION: ONE XRAY VIEW OF [...] Sign Date: 08/19/2022 11:21:10 AM Ordering Provider: [facility]01-05-2022 Hospital Discharge instructions Patient Education 04/25/2021 10:23:40 [...] the smoke from others. You may use fdai-pbw-xkxhdwa acetaminophen or ibuprofen for fever, muscle aching, [...] body and be dangerous to your health. Wsvp-gve-lstgdgk remedies won't shorten the length of the [...] or as directed by your healthcare provider [id number] [employer]. [address] [place] [address], [place] [address]. All rights reserved. This information is not intended as a substitute for professional medical care. Always follow yourhealthcare professional's instructions. Follow Up Care 04/25/2021 09:49:45 With:EMILIE ABRAMS MD Address: [address] [place] [address]- When:2-4 days [facility] 10-14-2021 NoteHNO ID: [id number] Author: Ronny Sewell MD Service: ? Author [...] mg tablet Take by mouth. - Ipratropium [place] (ATROVENT) 21 mcg (0.03 %) nasal spray [...] if severe. - 2019 CORONAVIRUS Ronny Sewell, [facility]10-14-2021 History of Present illness Narrative* Ronny Sewell [...] 25 mg tablet Take by mouth. Ipratropium [place] (ATROVENT) 21 mcg (0.03 %) nasal spray [...] CORONAVIRUS Ronny Sewell MD [facility] No data available for this section [facility] Evaluation note* Diagnosis URI, acute- Primary Acute upper respiratory infections of unspecified site documented in this encounter [facility] Health Concerns Infection Onset Date Last [...] or prosecute any alcohol or drug abuse patient.[facility] Reason for Visit (unrecogniz ed section and content) (unrecognized sect ion and content) No Status Records FoundNo Status Records Found INFORMATION SOURCE (unrecogn ized section and content) DATE CREATED AUTHOR AUTHOR'S ORGANIZ ATION 08/27/2022 [facility] ([place] Patient Care team informatio n (unrecognized section and content) Care Team Personnel Name: EMILIE ABRAMS MD Member Role: Primary Care Physician Address: Address: [address] [place] [address]- Name: AMADOU Jang Position: RN Member Role: ED RN Name: Concepcion Fam Coder Position: HIM: Coders Member Role: HIM: Coders Name: AYLA BUI DO Position: ED Physician Address: Address: [address] [place] [id number] Care Team Related Persons Name: HELGA DUMONT [...] BE BASED ON THE PRIMARY CLINICAL RECORDS. [facility]. provides no warranty or guarantee of the accuracy or completeness of information in this document.
[2023-05-20 11:08] LABS: Color, Urine Yellow (Yellow); Glucose, Dipstick Normal (Normal); Ketone-Dipstick Negative (Negative); Leukocyte Esterase-Dipstick Negative /ul (Negative); Nitrite-Dipstick Negative (Negative); Occult Blood-Urine 25 /ul (Negative); Protein-Dipstick 500 mg/dl (Negative); Urine Bilirubin Dipstick Negative (Negative); Urine Clarity Clear (Clear); Urine Urobilinogen Normal (Normal)
[2023-05-20 11:11] LABS: Protein, Urine (Random) 245.8 mg/dL (<11.9); Protein:Creat Ratio 2680 mg/g CRE (0-200)
[2023-05-20 11:18] LABS: Red Blood Cells-Urine 0-5 SEEN /hpf (0-5)
[2023-05-20 11:22] LABS: Albumin, Serum 3.5 g/dL (3.2-5.0); BUN 53 mg/dL (7-18); BUN/Creat Ratio 15.4 RATIO (10-20); Chloride 113 mmol/L (98-107); Creatinine, Serum 3.45 mg/dL (0.70-1.30); EST Glomerular Filtration Rate 20 mL/min (>60); Est Glom Filt Rate - Afr Amer 24 mL/min (>60); Glucose 89 mg/dL (74-106); Phosphorus 4.1 mg/dL (2.5-4.9); Potassium 4.5 mmol/L (3.5-5.1); Sodium Level 136 mmol/L (136-145)
[2023-05-20 11:27] LABS: PTHIN 344.9 pg/mL (18.4-80.1)
== END | disposition home or self-care (01) ==
LOC: LAB 10:15
PROVIDERS: PCP Family Medicine; Referring Provider Internal Medicine Nephrology; Visit Provider Internal Medicine Nephrology
DX: I12.9 Hypertensive chronic kidney disease with stage 1 through stage 4 chronic kidney disease, or unspecified chronic kidney disease (principal); N18.4 Chronic kidney disease, stage 4 (severe); R80.9 Proteinuria, unspecified
CPT/HCPCS: 36415; 80069; 81001; 82570; 83970; 84156

== ENCOUNTER → 2023-06-18 | Outpatient (CLI) | payer MEDICAID, SELFPAY ==
[2023-06-18 13:52] LABS: Albumin, Serum 3.4 g/dL (3.2-5.0); BUN 39 mg/dL (7-18); BUN/Creat Ratio 9.8 RATIO (10-20); Calcium,Total 8.4 mg/dL (8.5-10.1); Chloride 113 mmol/L (98-107); Creatinine, Serum 3.97 mg/dL (0.70-1.30); EST Glomerular Filtration Rate 17 mL/min (>60); Est Glom Filt Rate - Afr Amer 21 mL/min (>60); Glucose 123 mg/dL (74-106); Phosphorus 4.2 mg/dL (2.5-4.9); Potassium 4.2 mmol/L (3.5-5.1); Sodium Level 140 mmol/L (136-145)
[2023-06-18 13:54] LABS: PTHIN 407.5 pg/mL (18.4-80.1)
[2023-06-18 13:58] LABS: Vitamin D,25 Hydroxy 19.1 ng/mL
--- OUTSIDE RECORDS SUMMARY | 2023-06-18 22:31 | XMS RPT_ITS | CCD ---
Author Name Unknown Address [address] [place] [address] Organization [facility] Care Team Providers Care Hogshead Cooper Name Role Phone AMADOU Buckley RN, Suma Melgoza Unavailable Unavailrachael Buckley RN RN, Suma Melgoza Unavailable Unavailrachael Buckley RN RN, Suma Melgoza Unavailable Unavailabl e Unavailable Primary Care Provider Unavailrachael ABRAMS MD, EMILIE Melgoza Primary Care Physician [phone] EMILIE ABRAMS MD Primary Care Physician [phone] EMILIE ABRAMS MD Primary Care Unavailable CARLOS [...] qDay, # 60 tab(s), 0 Refill(s), Pharmacy: [facility] #[id number], 185.4, cm, 08/19/22 12:22:00 EDT, Height Start Date: 08/20/22 Status: Ordered Completed/Discontinued Medications Medication Drug Class(es) Dates Sig (Normalized) Sig (Original) ascorbic acid 1000 mg oral tablet (3 sources) Vitamin C take 1 tablet by mouth three times daily ASCORBIC ACID 1000 MG TABS One tablet by mouth three times daily ASCORBIC ACID [id number] Suma Buckley RN RN chlorthalidone 25 mg [...] 11:08-0400 Body temperature 97.88 [degF] CHAO ALVARES [employer]YING [employer]NER-RAD TECHNOLOGIST [facility] 08-20-2022 11:08-0400 Diastolic Blood Pressure Non-Invasive 108 1 CHAO ALVARES [employer]YING [employer]-RAD TECHNOLOGIST [facility] 08-20-2022 11:08-0400 Heart rate 89 /min CHAO ALVARES [employer]-RAD TECHNOLOGIST [facility] 08-20-2022 11:08-0400 Reason For Taking VItal Signs CHAO ALVARES [employer]YING [employer]-RAD TECHNOLOGIST [facility] 08-20-2022 11:08-0400 Respiratory rate 16 /min CHAO ALVARES [employer]YING [employer]-RAD TECHNOLOGIST [facility] 08-20-2022 11:08-0400 Systolic Blood Pressure Non-Invasive 156 1 CHAO ALVARES [employer]YING [employer]NER-RAD TECHNOLOGIST [facility] 08-20-2022 09:20-0400 Diastolic Blood Pressure Non-Invasive 96 1 CHAO ALVARES [employer]YING [employer]NER-RAD TECHNOLOGIST [facility] 08-20-2022 09:20-0400 Systolic Blood Pressure Non-Invasive 152 1 CHAO ALVARES [employer]YING [employer]NER-RAD TECHNOLOGIST [facility] 08-20-2022 08:27-0400 Diastolic Blood Pressure Non-Invasive 101 1 CHAO ALVARES SUR[employer]YING [employer]NER-RAD TECHNOLOGIST [facility] 08-20-2022 08:27-0400 Systolic Blood Pressure Non-Invasive 161 1 CHAO ALVARES [employer]YING [employer]NER-RAD TECHNOLOGIST [facility] 05-02-2023 07:00-0400 Body temperature 98.42 [degF] CHAO ALVARES SUR[employer]YING [employer]NER-RAD TECHNOLOGIST [facility] 08-20-2022 07:00-0400 Heart rate 88 /min CHAO ALVARES [employer]YING [employer]NER-RAD TECHNOLOGIST [facility] 08-20-2022 03:39-0400 Body temperature 98.06 [degF] CHAO ALVARES SURVEYING [employer]NER-RAD TECHNOLOGIST [facility] 08-20-2022 03:39-0400 Respiratory rate 16 /min CHAO ALVARES SUR[employer]YING [employer]NER-RAD TECHNOLOGIST [facility] 08-20-2022 00:10-0400 Heart rate 87 /min CHAO ALVARES SUR[employer]YING [employer]NER-RAD TECHNOLOGIST [facility] 08-20-2022 00:10-0400 Reason For Taking VItal Signs CHAO ALVARES SUR[employer]YING [employer]NER-RAD TECHNOLOGIST [facility] 08-19-2022 16:55-0400 Heart rate 68 /min CHAO ALVARES SURVEYING [employer]NER-RAD TECHNOLOGIST [facility] 08-19-2022 12:22-0400 Body height 185.4 cm CHAO ALVARES SUR[employer]YING [employer] RUNNER-RAD TECHNOLOGIST [facility] 08-19-2022 12:22-0400 Body weight 117.1 kg CHAO ALVARES SURVEYING [employer]NER-RAD TECHNOLOGIST [facility] 08-19-2022 12:22-0400 Body weight 34.07 kg/m2 CHAO ALVARES [employer]YING [employer]NER-RAD TECHNOLOGIST [facility] 08-19-2022 12:13-0400 Heart rate 68 /min CHAO ALVARES [employer]YING [employer]NER-RAD TECHNOLOGIST [facility] 08-19-2022 11:57-0400 Heart rate 77 /min CHAO ALVARES SURVEYING [employer]NER-RAD TECHNOLOGIST [facility] 08-19-2022 11:13-0400 Heart rate 68 /min CHAO ALVARES SURVEYING [employer]NER-RAD TECHNOLOGIST [facility] 08-19-2022 10:12-0400 Body weight 117.1 kg CHAO ALVARES [employer]VEYING [employer]NER-RAD TECHNOLOGIST [facility] 04-25-2021 10:16-0500 Body height 185 cm SARANYA JOHNSON MD [facility] 04-25-2021 10:16-0500 Body temperature 96.8 [degF] SARANYA JOHNSON MD [facility] 04-25-2021 10:16-0500 Body weight 129.5 kg SARANYA JOHNSON MD [facility] 04-25-2021 10:16-0500 Diastolic blood pressure 95 mm[Hg] SARANYA JOHNSON MD [facility] 04-25-2021 10:16-0500 Heart rate 118 /min SARANYA JOHNSON MD [facility] 04-25-2021 10:16-0500 Respiratory rate 20 /min SARANYA JOHNSON MD [facility] 04-25-2021 10:16-0500 Systolic blood pressure 142 mm[Hg] SARANYA JOHNSON MD [facility] 02-01-2021 13:14-0400 Body temperature 98.4 [degF] Ronny Sewell MD Work Phone: [facility] 02-01-2021 13:14-0400 Body weight 126.55 kg Ronny Sewell MD Work Phone: [facility] 02-01-2021 13:14-0400 Diastolic blood pressure 80 mm[Hg] Ronny Sewell MD Work Phone: [facility] 02-01-2021 13:14-0400 Heart rate 98 /min Ronny Sewell MD Work Phone: [facility] 02-01-2021 13:14-0400 Respiratory rate 18 /min Ronny Sewell MD Work Phone: [facility] 02-01-2021 13:14-0400 SaO2% (BldA) [Mass fraction] 96 % Ronny Sewell MD Work Phone: [facility] 02-01-2021 13:14-0400 Systolic blood pressure 132 mm[Hg] Ronny Sewell MD Work Phone: [facility] 09-05-2016 14:41-0400 BMI (Body Mass Index) 35.75 kg/m2 Suma Buckley RN RN [facility] [employer] Work Phone: 09-05-2016 14:41-0400 Body Temperature 98.8 [degF] Suma Buckley RN RN [facility] Work Phone: 09-05-2016 14:41-0400 BP Diastolic 85 mm[Hg] Suma Buckley RN RN [facility] Work Phone: 09-05-2016 14:41-0400 BP Systolic 121 mm[Hg] Suma Buckley RN RN [facility] Work Phone: 09-05-2016 14:41-0400 BSA (Body Surface Area) 2.45 m2 Suma Buckley RN RN [facility] Work Phone: 09-05-2016 14:41-0400 Height 185.42 cm Suma Buckley RN RN [facility] Work Phone: 09-05-2016 14:41-0400 Pulse (Heart Rate) 102 /min Suma Buckley RN RN [facility] Work Phone: 09-05-2016 14:41-0400 Pulse Oximetry 96 % Suma Buckley RN RN [facility] Work Phone: 09-05-2016 14:41-0400 Respiratory Rate 16 /min Suma Buckley RN RN [facility] Work Phone: 09-05-2016 14:41-0400 Weight 122.93 kg Suma Buckley RN RN [facility] [employer] Work Phone: 09-05-2016 14:41-0400 Weight 122.92 kg Suma Buckley RN RN [facility] Work Phone: 11-02-2014 09:51-0400 BMI (Body Mass Index) 34.86 kg/m2 Suma Buckley RN RN [facility] Work Phone: 11-02-2014 09:51-0400 Body Temperature 97 [degF] Suma Buckley RN RN [facility] Work Phone: 11-02-2014 09:51-0400 Body weight 113.4 kg Suma Buckley RN RN [facility] [employer] Work Phone: 11-02-2014 09:51-0400 BP Diastolic 92 mm[Hg] Suma Buckley RN RN [facility] Work Phone: 11-02-2014 09:51-0400 BP Systolic 130 mm[Hg] Suma Buckley RN RN [facility] [employer] Work Phone: 11-02-2014 09:51-0400 BSA (Body Surface Area) 2.32 m2 Suma Buckley RN RN [facility] [employer] Work Phone: 11-02-2014 09:51-0400 Height 180.34 cm Suma Buckley RN RN [facility] Work Phone: 11-02-2014 09:51-0400 Pulse (Heart Rate) 70 /min Suma Buckley RN RN [facility] Work Phone: 11-02-2014 09:51-0400 Pulse Oximetry 96 % Suma Buckley RN RN [facility] Work Phone: 11-02-2014 09:51-0400 Respiratory Rate 16 /min Suma Buckley RN RN [facility] Work Phone: Encounters Encounter Date Encounter Type Care Provider Facility Start: 08-19-2022 End: 08-20-2022 ambulatory EMILIE ABRAMS MD Facility:B Start: 08-19-2022 End: 08-20-2022 Observation CHAO ALVARES APRN-Plix [facility] Start: 04-25-2021 End: 04-25-2021 Emergency department patient visit SARANYA JOHNSON MD [facility] Start: 02-01-2021 End: 02-01-2021 Patient encounter procedure Ronny Sewell MD Work Phone: [facility] Procedures Date Procedure Procedure Detail Performing Clinician Start: 11-02-2014 End: 11-02-2014 Documentation of current medications Suma Buckley RN RN Start: 11-02-2014 End: 11-02-2014 Documentation of current medications Rita Rebolledo Work Phone: Lower limb structure (body structure) SARANYA JOHNSON MD Lower limb structure (body structure) CHAO ALVARES APRN-RAD TECHNOLOGIST Plan of Treatment Date Care Activity Detail Author Start: 02-01-2021 End: 02-15-2021 SARS-CoV-2 (COVID-19) RNA [Presence] in Respiratory specimen by ARIADNA with probe detection 2019 CORONAVIRUS Microbiology Routine URI, acute Expected: 02/01/2021, Expires: 02/15/[address] [facility] Immunizations Immunization Date Immunization Notes Care Provider Carlos Eduardo pepe 02-18-2019 influenza virus vaccine, unspecified formulation CHAO FONSECA [facility] Payers Date Payer Category Payer Unknown [id number] 2020 Medicaid [employer] [place] [employer] [id number] 2020-Present Medicaid [id number] 1970 Unknown [id number] Social History Date Type Detail Facility Start: 02-01-2021 End: 04-25-2021 Tobacco smoking status MNIS Never smoker [facility] in Start: 02-01-2021 Tobacco use and exposure Never used [facility] Work Phone: Start: 1970 Sex Assigned At Not on file [facility] Exposure to SARS-CoV -2 (event) Not sure [facility] Sex Assigned At [facility] Functional Status Date Assessment Result Facility 08-20-2022 Functional Status Room check performed [facility] 08-20-2022 Functional Status [facility] 08-20-2022 Functional Status [facility] 08-20-2022 Functional Status [facility] 08-19-2022 Functional Status Dinner Percent 100 [facility] 08-19-2022 Functional Status Driving, Home management, Personal ADL [facility] Mental Status Date Assessment Result Facility 08-20-2022 Mental Status Oriented x 4 [facility] 08-20-2022 Mental Status [facility] 08-19-2022 Mental Status [facility] 08-19-2022 Mental Status [facility] Clinical Notes 02-01-2021 to 08-20-2022 Note Date & Type Note Facility 08-20-2022 Note Discharge Instructions Thank you for allowing [facility] to assist you with your healthcare needs. The following is important discharge information regarding your hospital visit. Your Care Team [facility] Your Diagnosis Arm paresthesia, left [...] you will need to follow-up with a stripper latex. Your blood pressure is very poorly controlled. A prescription for an increased dose of hydralazine has been sent to your pharmacy. Additionally a prescription for amlodipine has been sent to your pharmacy. Follow Up Appointments Follow Up with EMILIE ABRAMS MD When Within 2-4 days Why: Please call to schedule your post-hospital follow-up appointment. Where: [facility] [address] [place] [address]- The Following Activity and Diet Have Been [...] Once a day Pickup at [id number] 08/20 @ 830am New aspirin (aspirin 81 mg oral delayed release tablet) 1 tab(s) by mouth Every day Pickup at [facility] #[id number] 08/20 @ 830am New predniSONE (prednisone 10mg tab (TAPER)) Taper 40-20-10 mg x 2 days each dose by mouth Every day Duration: 6 Days DO NOT START UNTIL Pickup at [facility] #[id number] start 08/21 Changed hydrALAZINE (hydrALAZINE 25 mg oral tablet) 3 tab(s) by mouth Three (3) times a day Pickup at [facility] #[id number] 08/20 @ 830am Unchanged doxazosin (doxazosin 2 [...] day not given Pharmacy Information [facility][id number]: [address], [place] [id number] [phone] Please take this list to your next [...] may report side effects to FDA at 0-875-DTI-2577. What other drugs will affect amlodipine? Tell your doctor about all your other medicines, especially: nitroglycerin; simvastatin (Zocor, Simcor, Vytorin); or any other heart or blood pressure medications. This list is not complete. Other drugs may affect amlodipine, including prescription and yzla-xgh-kppmqsr medicines, vitamins, and herbal products. Not all [...] to ensure that the information provided by [employer]. ('[employer]') is accurate, up-to-date, and complete, but no guarantee is made to that effect. Drug information contained herein may be time sensitive. [employer] information has been compiled for use by healthcare practitioners and consumers in the [place] and therefore [employer] does not warrant that uses outside of the [place] are appropriate, unless specifically indicated otherwise. [employer] drug information does not endorse drugs, diagnose patients or recommend therapy. [employer] drug information is an informational resource designed [...] effective or appropriate for any given patient. [employer] does not assume any responsibility for any aspect of healthcare administered with the aid of information [employer] provides. The information contained herein is not intended to cover all possible uses, directions, precautions, warnings, drug interactions, allergic reactions, or adverse effects. If you have questions about the drugs you are taking, check with your doctor, nurse or pharmacist. Copyright 9293-5768 [employer]. Version: 15.. Revision Date: 02/15/2019. hydralazine (daisy [...] may report side effects to FDA at 3-445-WVF-5749. What other drugs will affect hydralazine? Tell your doctor about all your current medicines and any you start or stop using, especially: diazoxide (an injectable blood pressure medication); or an MAO inhibitor--isocarboxazid, linezolid, methylene blue injection, phenelzine, rasagiline, selegiline, tranylcypromine, and others. This list is not complete. Other drugs may interact with hydralazine, including prescription and pqba-vtp-lvvfucp medicines, vitamins, and herbal products. Not all [...] to ensure that the information provided by [employer]') is accurate, up-to-date, and complete, but no guarantee is made to that effect. Drug information contained herein may be time sensitive. [employer] information has been compiled for use by healthcare practitioners and consumers in the [place] and therefore [employer] does not warrant that uses outside of the [place] are appropriate, unless specifically indicated otherwise. [employer] drug information does not endorse drugs, diagnose patients or recommend therapy. [employer] drug information is an informational resource designed [...] effective or appropriate for any given patient. [employer] does not assume any responsibility for any aspect of healthcare administered with the aid of information [employer] provides. The information contained herein is not intended to cover all possible uses, directions, precautions, warnings, drug interactions, allergic reactions, or adverse effects. If you have questions about the drugs you are taking, check with your doctor, nurse or pharmacist. Copyright 1311-9196 [employer]. Version: 5.01. Revision Date: 04/30/2017. prednisone (PRED [...] may report side effects to FDA at 8-588-TFE-5707. What other drugs will affect prednisone? Sometimes [...] may affect prednisone. This includes prescription and wbrm-xdn-jnyqgct medicines, vitamins, and herbal products. Not all [...] to ensure that the information provided by [employer]') is accurate, up-to-date, and complete, but no guarantee is made to that effect. Drug information contained herein may be time sensitive. [employer] information has been compiled for use by healthcare practitioners and consumers in the [place] and therefore [employer] does not warrant that uses outside of the [place] are appropriate, unless specifically indicated otherwise. [employer] drug information does not endorse drugs, diagnose patients or recommend therapy. [employer] drug information is an informational resource designed [...] effective or appropriate for any given patient. [employer] does not assume any responsibility for any aspect of healthcare administered with the aid of information [employer] provides. The information contained herein is not intended to cover all possible uses, directions, precautions, warnings, drug interactions, allergic reactions, or adverse effects. If you have questions about the drugs you are taking, check with your doctor, nurse or pharmacist. Copyright 6361-6741 [employer]. Version: 10.. Revision Date: 07/16/2018. aspirin (oral) ( pir in) Arthritis Pain, Aspi-Cor, Aspir-Low, Yuniel Plus, Durlaza, Ecotrin, Miniprin, Vazalore What is the most important information I should know about aspirin? Aspirin can cause Haile's syndrome, a serious and sometimes fatal condition in children. What is aspirin? Aspirin is a salicylate (ar-KJV-kc-ate) that is used to treat pain, and [...] may report side effects to FDA at 8-378-WVR-6410. What other drugs will affect aspirin? Ask [...] drugs may affect aspirin, including prescription and tmby-ruy-seklizu medicines, vitamins, and herbal products. Not all [...] to ensure that the information provided by [employer]') is accurate, up-to-date, and complete, but no guarantee is made to that effect. Drug information contained herein may be time sensitive. [employer] information has been compiled for use by healthcare practitioners and consumers in the [place] and therefore [employer] does not warrant that uses outside of the [place] are appropriate, unless specifically indicated otherwise. [employer] drug information does not endorse drugs, diagnose patients or recommend therapy. [employer] drug information is an informational resource designed [...] effective or appropriate for any given patient. [employer] does not assume any responsibility for any aspect of healthcare administered with the aid of information [employer] provides. The information contained herein is not intended to cover all possible uses, directions, precautions, warnings, drug interactions, allergic reactions, or adverse effects. If you have questions about the drugs you are taking, check with your doctor, nurse or pharmacist. Copyright 6111-1970 [employer]. Version: 16.03. Revision Date: 10/16/2020. Education Materials [...] symptoms of stroke, CALL 911 without delay. 7361-6366 [employer]. [address] [place] [address], [place] [address]. All rights reserved. This information is not intended as a substitute for professional medical care. Always follow your healthcare professional's instructions. Additional Information VACCINATE! IT SAVES LIVES! Members of the community who have not yet received the COVID-19 vaccine and would like to receive it can visit one of [facility] vaccine clinics. There are many vaccine clinic locations within the [facility]. For locations and available times, please visit [email or web address] It is important to note that some COVID mobile vaccine clinics are held outdoors and may be canceled in rainy or stormy conditions. To learn more about pediatric vaccinations (ages 5-11), we invite you to visit the [facility] [facility] webpage. [email or web address]/[email or web address]-Favnqilmotz-Frequently-[email or web address] -Questions.html To learn more about the COVID-19 vaccine, we invite you to visit the CDC website for a list of frequently asked questions. https://www.cdc.gov/coronavirus/2019-n cov/vaccines/faq.html [facility] Patient Portal Access Instructions: Stay connected with your healthcare team and access your personal medical information anytime with the [facility] Patient Portal.If you would like a full copy of your medical records, please contact the [facility] Medical Records Department, Friday through Friday between 8a.m. and 4:30p.m. Please follow the directions below to access the portal: 1.Access the email account you provided upon registration to the hospital.2.Look for an invitation email from [facility].3.Open the email and access the invitation link: Accept Invitation to [facility].Fill in the required cedeno to create your account. Sign into www.[email or web address] with your username and password that you [...] you will allow to register on the [facility] Patient Portal for access to your information. You can also access the [facility] Patient Portal on the [employer] severo. Simply click on Health Records under Health Data and then click on the [employer] logo. HOW TO SAFELY DISPOSE OF PRESCRIPTION [...] Call your local pharmacy or go to http://FriendsClear.[employer](INOR)/7X7Wk3i to find one close to you.3.Make use of household items: Use cat litter or old coffee grounds to dispose medications if other options are not available. Mix your drugs with these household products, seal them in an airtight container and throw it into the garbage. Call [facility]: [phone] to be sure your drugs can be [...] Patient Education Materials (more content not included)... [facility] 08-20-2022 Note ORIGINAL EXAMINATION: CT [...] 08/20/2022 12:21:13 AM Ordering Provider: CHAO ALVARES [facility] 08-19-2022 Note Date of Service 08/19/2022 Chief Complaint Presesnts with left arm numbness and tingling that started last night at 2200 History of Present Illness 52-year-old male with past medical history significant for hypertension, obesity, NED, anemia, CKD, blindness. Patient presented to [facility] emergency department on 08/19/2022 with left arm [...] by CHAO ALVARES on 08/19/2022 08:07 PM [facility] 08-19-2022 Note ORIGINAL EXAMINATION: CT [...] Sign Date: 08/20/2022 12:21:13 AM Ordering Provider: [facility] 08-19-2022 Note ORIGINAL HISTORY: Right arm numbness, [...] Date: 08/19/2022 4:18:12 PM Ordering Provider: CHAO [facility] 08-19-2022 Note ORIGINAL HISTORY: Right arm numbness, [...] 08/19/2022 4:18:12 PM Ordering Provider: CHAO ALVARES [facility] 1. Arm paresthesia, left 2. [...] and may include grammatical and/or spelling errors. [facility] 05-01-2023 Hospital Discharge instructions Patient [...] symptoms of stroke, CALL 911 without delay. 5412-8335 [employer]. [address] [place] [id number]. All rights reserved. This information is not intended as a substitute for professional medical care. Always follow yourhealthcare professional's instructions. Follow Up Care 08/19/2022 10:12:26 With:EMILIE ABRAMS MD Address: [facility] [address] [place] [address]- When:2-4 days Comments:Please call to schedule your post-hospital follow-up appointment. [facility] 05-01-2023 Note ORIGINAL EXAMINATION: ONE [...] Date: 08/19/2022 11:21:10 AM Ordering Provider: [facility]05-01-2023 Note ORIGINAL HISTORY: Change in mental [...] Sign Date: 08/19/2022 11:13:52 AM Ordering Provider: [facility] [address]05-01-2023 Note ORIGINAL HISTORY: Change in mental status, [...] and small vessel ischemic disease. Interpreted by: Mianl Dumont MD Preliminary Report By: Minal Dumont MD Electronically signed By Minal Dumont MD Dictated Date: 08/19/2022 11:13:00 AM Prelim Date: 08/19/2022 11:13:52 AM Sign Date: 08/19/2022 11:13:52 AM Ordering Provider: [facility]05-01-2023 Note ORIGINAL EXAMINATION: ONE XRAY VIEW OF [...] Sign Date: 08/19/2022 11:21:10 AM Ordering Provider: [facility]01-05-2022 Hospital Discharge instructions Patient Education 04/25/2021 10:23:40 [...] the smoke from others. You may use ipux-may-rxiapwj acetaminophen or ibuprofen for fever, muscle aching, [...] body and be dangerous to your health. Mauk-cai-rwgspyh remedies won't shorten the length of the [...] or as directed by your healthcare provider [id number] [employer]. [address] [place] [address], [place] [address]. All rights reserved. This information is not intended as a substitute for professional medical care. Always follow yourhealthcare professional's instructions. Follow Up Care 04/25/2021 09:49:45 With:EMILIE ABRAMS MD Address: [address] [place] [address]- When:2-4 days [facility] 10-14-2021 NoteHNO ID: [id number] Author: Ronny Sewell MD Service: ? Author [...] mg tablet Take by mouth. - Ipratropium [place] (ATROVENT) 21 mcg (0.03 %) nasal spray [...] if severe. - 2019 CORONAVIRUS Ronny Sewell, [facility]10-14-2021 History of Present illness Narrative* Ronny Sewell [...] 25 mg tablet Take by mouth. Ipratropium [place] (ATROVENT) 21 mcg (0.03 %) nasal spray [...] CORONAVIRUS Ronny Sewell MD [facility] note No data available for this section [facility] Evaluation note* Diagnosis URI, acute- Primary Acute upper respiratory infections of unspecified site documented in this encounter [facility] Health Concerns Infection Onset Date Last Indicated [...] or prosecute any alcohol or drug abuse patient.[facility] Reason for Visit (unrecogniz ed section and content) (unrecognized sect ion and content) No Status Records FoundNo Status Records Found INFORMATION SOURCE (unrecogn ized section and content) DATE CREATED AUTHOR AUTHOR'S ORGANIZ ATION 08/27/2022 [facility] ([place]) Patient Care team informatio n (unrecognized section and content) Care Team Personnel Name: EMILIE ABRAMS MD Member Role: Primary Care Physician Address: Address: [address] [place] [address]- Name: AMADOU Jang Position: RN Member Role: ED RN Name: Concepcion Fam Coder Position: HIM: Coders Member Role: HIM: Coders Name: AYLA BUI DO Position: ED Physician Address: Address: [address] [place] [id number] Care Team Related Persons Name: HELGA [...] BE BASED ON THE PRIMARY CLINICAL RECORDS. [employer] [facility]. provides no warranty or guarantee of the accuracy or completeness of information in this document.
== END | disposition home or self-care (01) ==
LOC: LAB 12:59
PROVIDERS: PCP Family Medicine; Referring Provider Internal Medicine Nephrology; Visit Provider Internal Medicine Nephrology
DX: N18.4 Chronic kidney disease, stage 4 (severe) (principal); N25.81 Secondary hyperparathyroidism of renal origin
CPT/HCPCS: 36415; 80069; 82306; 83970

== ENCOUNTER → 2023-08-08 | Outpatient (CLI) | payer MEDICAID, SELFPAY ==
[2023-08-08 11:24] LABS: Hematocrit 32.6 % (40-54); Hemoglobin 10.8 g/dL (13.0-16.5); Mean Corp Hgb Conc 33.1 g/dL (32-36); Mean Corpuscular Hgb 28.1 pg (27.0-32.0); Mean Corpuscular Volume 84.9 fL (80-94); Mean Platelet Vol. 9.6 fl (6.2-12.0); Platelet Count 275 K/mm3 (150-450); RBC Distribution Width CV 13.5 % (11.6-14.6); RBC Distribution Width SD 41.5 fl (35.1-43.9); Red Blood Count 3.84 M/mm3 (4.6-6.2); White Blood Count 9.4 K/mm3 (4.4-11.0)
[2023-08-08 11:49] LABS: Vitamin D,25 Hydroxy 28.8 ng/mL
[2023-08-08 11:53] LABS: Albumin, Serum 3.6 g/dL (3.2-5.0); BUN 49 mg/dL (7-18); BUN/Creat Ratio 11.3 RATIO (10-20); Calcium,Total 8.4 mg/dL (8.5-10.1); Chloride 112 mmol/L (98-107); Creatinine, Serum 4.35 mg/dL (0.70-1.30); EST Glomerular Filtration Rate 15 mL/min (>60); Est Glom Filt Rate - Afr Amer 18 mL/min (>60); Ferritin 99 ng/mL (26-388); Glucose 110 mg/dL (74-106); Iron 78 ug/dL (65-175); Iron Binding Capacity,Total 262 ug/dL (250-450); Phosphorus 4.7 mg/dL (2.5-4.9); Potassium 4.1 mmol/L (3.5-5.1); Sodium Level 140 mmol/L (136-145)
== END | disposition home or self-care (01) ==
PROVIDERS: PCP Family Medicine; Referring Provider Internal Medicine Nephrology; Visit Provider Internal Medicine Nephrology
DX: N18.4 Chronic kidney disease, stage 4 (severe) (principal); N25.81 Secondary hyperparathyroidism of renal origin; D63.8 Anemia in other chronic diseases classified elsewhere
CPT/HCPCS: 36415; 80069; 82306; 82728; 83540; 83550; 83970; 85027

== ENCOUNTER → 2023-09-11 | Outpatient (CLI) | payer SELFPAY ==
[2023-09-11 10:24] LABS: Hemoglobin 11.1 g/dL (13.0-16.5); Mean Corp Hgb Conc 32.6 g/dL (32-36); Mean Corpuscular Hgb 28.2 pg (27.0-32.0); Mean Corpuscular Volume 86.5 fL (80-94); Mean Platelet Vol. 9.8 fl (6.2-12.0); Platelet Count 252 K/mm3 (150-450); RBC Distribution Width CV 13.2 % (11.6-14.6); RBC Distribution Width SD 41.2 fl (35.1-43.9); Red Blood Count 3.93 M/mm3 (4.6-6.2); White Blood Count 6.3 K/mm3 (4.4-11.0)
[2023-09-11 11:02] LABS: Albumin, Serum 3.4 g/dL (3.2-5.0); BUN 47 mg/dL (7-18); BUN/Creat Ratio 10.8 RATIO (10-20); Calcium,Total 8.5 mg/dL (8.5-10.1); Chloride 117 mmol/L (98-107); Creatinine, Serum 4.36 mg/dL (0.70-1.30); EST Glomerular Filtration Rate 15 mL/min (>60); Est Glom Filt Rate - Afr Amer 18 mL/min (>60); Ferritin 85 ng/mL (26-388); Glucose 99 mg/dL (74-106); Iron 70 ug/dL (65-175); Iron Binding Capacity,Total 263 ug/dL (250-450); PERCENT IRON SATURATION 26.6 % (15.0-55.0); Phosphorus 3.7 mg/dL (2.5-4.9); Potassium 4.1 mmol/L (3.5-5.1); Sodium Level 140 mmol/L (136-145)
[2023-09-11 12:25] LABS: PTHIN 465.6 pg/mL (18.4-80.1)
== END | disposition home or self-care (01) ==
LOC: LAB 09:46
PROVIDERS: PCP Family Medicine; Referring Provider Internal Medicine Nephrology; Visit Provider Internal Medicine Nephrology
DX: N18.5 Chronic kidney disease, stage 5 (principal); D63.8 Anemia in other chronic diseases classified elsewhere; N25.81 Secondary hyperparathyroidism of renal origin
CPT/HCPCS: 36415; 80069; 82728; 83540; 83550; 83970; 85027

== ENCOUNTER → 2023-10-15 | Outpatient (CLI) | payer SELFPAY ==
[2023-10-15 12:23] LABS: Hematocrit 34.6 % (40-54); Hemoglobin 11.3 g/dL (13.0-16.5); Mean Corp Hgb Conc 32.7 g/dL (32-36); Mean Corpuscular Hgb 28.3 pg (27.0-32.0); Mean Corpuscular Volume 86.7 fL (80-94); Mean Platelet Vol. 10.5 fl (6.2-12.0); Platelet Count 280 K/mm3 (150-450); RBC Distribution Width CV 13.3 % (11.6-14.6); RBC Distribution Width SD 41.5 fl (35.1-43.9); Red Blood Count 3.99 M/mm3 (4.6-6.2); White Blood Count 7.1 K/mm3 (4.4-11.0)
[2023-10-15 12:35] LABS: PTHIN 370.1 pg/mL (18.4-80.1)
[2023-10-15 12:49] LABS: Albumin, Serum 3.6 g/dL (3.2-5.0); BUN 43 mg/dL (7-18); BUN/Creat Ratio 10.2 RATIO (10-20); Calcium,Total 8.8 mg/dL (8.5-10.1); Chloride 114 mmol/L (98-107); Creatinine, Serum 4.23 mg/dL (0.70-1.30); EST Glomerular Filtration Rate 16 mL/min (>60); Est Glom Filt Rate - Afr Amer 19 mL/min (>60); Glucose 102 mg/dL (74-106); Phosphorus 3.6 mg/dL (2.5-4.9); Potassium 4.6 mmol/L (3.5-5.1); Sodium Level 138 mmol/L (136-145)
== END | disposition home or self-care (01) ==
PROVIDERS: PCP Family Medicine; Referring Provider Internal Medicine Nephrology; Visit Provider Internal Medicine Nephrology
DX: N18.5 Chronic kidney disease, stage 5 (principal); N25.81 Secondary hyperparathyroidism of renal origin; D63.8 Anemia in other chronic diseases classified elsewhere
CPT/HCPCS: 36415; 80069; 83970; 85027

== ENCOUNTER → 2024-01-28 | Outpatient (CLI) | payer MEDICAID, SELFPAY ==
[2024-01-28 16:53] LABS: Hematocrit 29.5 % (40-54); Hemoglobin 9.8 g/dL (13.0-16.5); Mean Corp Hgb Conc 33.2 g/dL (32-36); Mean Corpuscular Hgb 28.6 pg (27.0-32.0); Mean Platelet Vol. 10.1 fl (6.2-12.0); Platelet Count 273 K/mm3 (150-450); RBC Distribution Width SD 43.9 fl (35.1-43.9); Red Blood Count 3.43 M/mm3 (4.6-6.2); White Blood Count 8.1 K/mm3 (4.4-11.0)
[2024-01-28 17:12] LABS: PTHIN 777.6 pg/mL (18.4-80.1)
[2024-01-28 17:16] LABS: Albumin, Serum 3.5 g/dL (3.2-5.0); BUN 59 mg/dL (7-18); BUN/Creat Ratio 10.2 RATIO (10-20); Calcium,Total 7.4 mg/dL (8.5-10.1); Chloride 117 mmol/L (98-107); Creatinine, Serum 5.78 mg/dL (0.70-1.30); EST Glomerular Filtration Rate 11 mL/min (>60); Est Glom Filt Rate - Afr Amer 13 mL/min (>60); Glucose 102 mg/dL (74-106); Potassium 3.7 mmol/L (3.5-5.1); Sodium Level 142 mmol/L (136-145)
[2024-01-28 17:21] LABS: Vitamin D,25 Hydroxy 32.2 ng/mL
== END | disposition home or self-care (01) ==
LOC: LAB 15:44
PROVIDERS: PCP Family Medicine; Referring Provider Internal Medicine Nephrology; Visit Provider Internal Medicine Nephrology
DX: N18.5 Chronic kidney disease, stage 5 (principal); D63.8 Anemia in other chronic diseases classified elsewhere; N25.81 Secondary hyperparathyroidism of renal origin; E55.9 Vitamin D deficiency, unspecified
CPT/HCPCS: 36415; 80069; 82306; 83970; 85027

== ENCOUNTER → 2024-03-11 | Outpatient (CLI) | payer MEDICAID, SELFPAY | END | disposition home or self-care (01) | LOC: RAD 12:48 | PROVIDERS: PCP Family Medicine; Referring Provider Internal Medicine Nephrology; Visit Provider Internal Medicine Nephrology | DX: N18.6 End stage renal disease (principal) | CPT/HCPCS: 71046 ==